=== PATIENT | male | born 1935 | race Hispanic/Latino ===

== ENCOUNTER 2017-12-15 20:20 | Inpatient (IN) | payer MEDICARE, BC, SELFPAY ==
[2017-12-15] VITALS (8 sets, daily range): BP systolic 110–167; BP diastolic 67–88; PULSE 78–118; RESP 26–32; TEMP 36.7; O2SAT 91–100
--- NOTE | 2017-12-15 20:37 | DI.RAD.S_ITS ---
PROCEDURE: XR CHEST 1V INDICATIONS: s/p fall w/ chest pain TECHNIQUE: One view of the chest was acquired. COMPARISON: None. FINDINGS: Surgical changes and devices: None. Lungs and pleura: Bilateral diffuse interstitial infiltrates suspicious for pulmonary congestion. No pleural effusions or pneumothorax. Lungs are clear. Mediastinum: Mediastinal contours appear normal. Heart size is mildly increased. Bones and chest wall: Possible left distal clavicular fracture. Overlying soft tissues appear unremarkable. IMPRESSION: 1 Congestive heart failure. 2. Possible left distal clavicular fracture. Dictated by: Nael Chou M.D. on 12/15/2017 at 20:59 Approved by: Nael Chou M.D. on 12/15/2017 at 21:01
--- NOTE | 2017-12-15 20:56 | DI.CT.S_ITS ---
PROCEDURE: CT CERVICAL SPINE WO CON INDICATIONS: s/p fall w/ head strike and neck pain TECHNIQUE: Noncontrast 3 mm thick sections acquired from the skull base to the T4 level. Sagittal and coronal reformats were then constructed. For radiation dose reduction, the following was used: automated exposure control, adjustment of mA and/or kV according to patient size. COMPARISON: [facility], CR, XR CHEST 1V, 12/15/2017, 20:40. [facility], CT, CT CHEST ABD PEL W CON, 12/15/2017, 20:55. FINDINGS: Image quality: Excellent. Bones: No fractures or dislocations. There are degenerative changes in cervical spine. Visualized superior ribs are intact. Soft tissues: Prevertebral soft tissues are normal in thickness. No paravertebral hematomas. No apical pneumothoraces. IMPRESSION: 1. No fractures. 2. Degenerative changes in cervical spine. Dictated by: Nael Chou M.D. on 12/15/2017 at 22:07 Approved by: Nael Chou M.D. on 12/15/2017 at 22:11
--- NOTE | 2017-12-15 20:56 | DI.CT.S_ITS ---
PROCEDURE: CT CHEST ABD PEL W CON INDICATIONS: s/p fall w/ right chest pain and diffuse upper abdominal pain TECHNIQUE: After the administration of intravenous contrast, 5 mm thick sections acquired from the lung apices to the symphysis. 2.5 mm thick coronal and sagittal reformats were acquired. Additional 7 mm thick coronal maximum intensity projection (MIP) reformats acquired through the lungs. Optional 10-minute delayed imaging may be performed from the kidneys to the bladder. For radiation dose reduction, the following was used: automated exposure control, adjustment of mA and/or kV according to patient size. COMPARISON: [facility], CR, XR CHEST 1V, 12/15/2017, 20:40. FINDINGS: Image quality: Excellent. CHEST: Lungs: There is diffuse interstitial infiltrates bilaterally. Subpleural septal thickening and mild pulmonary fibrosis. No pulmonary contusions or lacerations. No acute airspace opacities. No pneumothorax. Trace left pleural effusion adjacent to a left or fractures suspicious levels trace hemothorax. Central and peripheral airways appear patent and normal in caliber. Mediastinum: No mediastinal hematomas. Heart size is moderately increased. No pericardial effusion. Thoracic aorta and pulmonary arteries demonstrate normal size and enhancement. No mediastinal or hilar adenopathy. Esophagus is normal in caliber. Small hiatal hernia. Chest wall: There is nondisplaced sternal fracture. No mediastinal hematoma. There is left medial clavicular head fracture. Multiple left rib fractures involving the second through eighth ribs. There is nondisplaced left scapular fracture involving the scapular spine. No subcutaneous emphysema. No axillary or supraclavicular adenopathy. Thyroid gland is normal. Enlarged left sternocleidomastoid muscle, suspicious for intramuscular hematoma. ABDOMEN: Solid organs: Liver is normal in size and enhancement, without lacerations. Gallbladder is normal. Biliary system is non-dilated. Pancreas enhances normally, without transection. Spleen is normal in size and enhancement, without lacerations. No adrenal hematomas. Both kidneys enhance normally, without hydronephrosis or lacerations. There are low density cortical nodules in right kidney probably renal cortical cysts. Peritoneum and bowel: Stomach is distended and filled with food debris. No free fluid or air. Unenhanced bowel loops demonstrate normal wall thickness and caliber. There is a small hiatal hernia. Nodes and vessels: No retroperitoneal or mesenteric adenopathy. Aorta and inferior vena cava are normal in size and enhancement. Miscellaneous: No ventral hernias. PELVIS: Genitourinary: Bladder wall thickness is normal. Miscellaneous: No inguinal hernias or adenopathy. Bones: There is acute T11 compression fracture with 30-40% loss of vertebral body height. Mild posterior displacement.. Pelvic ring and hip joints appear intact. No vertebral compression fractures. IMPRESSION: 1. Nondisplaced sternal fracture. No mediastinal hematoma. 2. Fracture of the left medial clavicular head. 3. Multiple left rib fractures and trace left hemothorax. 4. Acute compression fracture of T11 is mild posterior displacement. 5. A nondisplaced left scapular fracture. 6. Moderate cardiomegaly. 7. Diffuse interstitial infiltrates may be secondary to chronic congestive heart failure or chronic interstitial lung disease. There is mild pulmonary fibrosis. 8. Distended stomach and small hiatal hernia. 9. No acute traumatic process in abdomen or pelvis. 10. Enlargement of the left sternocleidomastoid muscle suspicious for intramuscular hematoma. Dictated by: Nael Chou M.D. on 12/15/2017 at 22:11 Approved by: Nael Chou M.D. on 12/15/2017 at 22:31
--- NOTE | 2017-12-15 20:56 | DI.CT.S_ITS ---
PROCEDURE: CT HEAD/BRAIN WO CON INDICATIONS: s/p fall w/ head strike and neck pain TECHNIQUE: Noncontrast 4.5 mm thick angled axial sections acquired from the foramen magnum to the vertex, with coronal and sagittal reformats. For radiation dose reduction, the following was used: automated exposure control, adjustment of mA and/or kV according to patient size. COMPARISON: None. FINDINGS: Image quality: Excellent. CSF spaces: Basal cisterns are patent. No extra-axial fluid collections. The ventricles are symmetric in size and shape. Brain: No intracranial bleeds or masses. There is cerebral volume loss for age, with resultant ventricular and sulcal prominence. There are periventricular and deep white matter chronic small vessel ischemic changes. There is intracranial internal carotid artery atherosclerosis. Skull and face: Calvarium and visualized facial bones appear intact, without suspicious lesions. Sinuses: Visualized sinuses and mastoids are clear. IMPRESSION: 1. No acute intracranial abnormalities. 2. Cerebral volume loss and chronic microvascular ischemic changes. Dictated by: Nael Chou M.D. on 12/15/2017 at 22:06 Approved by: Nael Chou M.D. on 12/15/2017 at 22:07
[2017-12-15 21:05] LABS: Add Manual Diff / Slide Review NO; Basophils Percent Auto 0.2 % (0-2); Eosinophils Percent Auto 1.7 % (2-4); Hematocrit 44.7 % (41-53); Hemoglobin 14.9 g/dL (13.5-17.5); Lymphocytes Percent Auto 31.8 % (25-40); Mean Corpuscular HGB Conc 33.2 % (30-36); Mean Corpuscular Hemoglobin 28.8 PG (26-34); Mean Corpuscular Volume 86.7 fL (80-100); Monocytes Percent Auto 5.6 % (3-14); Neutrophils Absolute Auto 8700 /uL (3000-5900); Neutrophils Percent Auto 60.7 % (50-75); Platelet Count 211 X10^3/uL (150-400); Red Blood Cell Count 5.16 X10^6/uL (4.5-5.9); Red Cell Distribution Width 13.7 % (11.6-14.8); White Blood Cell Count 14.2 X10^3/uL (4.5-11.0)
[2017-12-15 21:09] LABS: BUN Creatinine Ratio 28.9 (6-22); Blood Urea Nitrogen 26 mg/dL (9-20); Calcium 9.3 mg/dL (8.4-10.2); Carbon Dioxide 31 mmol/L (22-32); Chloride 100 mmol/L (98-107); Estimated Glomerular Filt Rate > 60.0 mL/min (>60); Glucose 123 mg/dL (80-110); HEMOLYSIS 24 (0-50); Potassium 3.9 mmol/L (3.4-5.1); Sodium 142 mmol/L (137-145)
[2017-12-15] MEDS: HYDROMORPHONE 0.5 MG INJ IV (21:35)
--- NOTE | 2017-12-15 22:38 | PC.NURSE ---
He arrived with hard collar in place,DR removed his backboard when he arrived here.Per orders I removed his hard c-collar at this time.
--- NOTE | 2017-12-15 22:51 | PC.NURSE ---
1050 Pt. O2 sat at 82L% with good pleth. placed on 2 l NC, pt c/o substernal CP and is diaphoretic. RT ordered to bs for and EKG
--- NOTE | 2017-12-15 23:28 | PC.NURSE ---
pt ambulated himself to stand and use urinal, his heart rate increased to the 115's and he said he felt like he had no energy.
[2017-12-16] VITALS (13 sets, daily range): BP systolic 103–159; BP diastolic 59–91; PULSE 82–122; RESP 16–30; TEMP 36.6–37; O2SAT 86–97; BMI 26.7
--- NOTE | 2017-12-16 | DI.RAD.S_ITS ---
PROCEDURE: XR CHEST 1V INDICATIONS: Hemothorax TECHNIQUE: One view of the chest was acquired. COMPARISON: [facility], CT, CT CHEST ABD PEL W CON, 12/15/2017, 20:55. [facility], CR, XR CHEST 1V, 12/15/2017, 20:40. FINDINGS: Surgical changes and devices: None. Lungs and pleura: No pleural effusions or pneumothorax. Lungs are abnormal with a generalized interstitial prominence pattern, in addition to possible mild superimposed pulmonary edema. Mediastinum: Mediastinal contours appear abnormal with indistinct margination and mediastinal contours to the interstitial prominence and suspected mild pulmonary edema. Heart size is globally enlarged. Bones and chest wall: No suspicious bony lesions. Overlying soft tissues appear unremarkable. IMPRESSION: Global cardiomegaly, probable mild acute CHF superimposed on the generalized interstitial prominence pattern that has been present on prior plain films without the cardiomegaly currently present. Left-sided partially visualized rib fractures, better seen by recent CT scan. Dictated by: Sander Mitchell M.D. on 12/16/2017 at 12:02 Approved by: Sander Mitchell M.D. on 12/16/2017 at 12:05
--- NOTE | 2017-12-16 | DI.RAD.S_ITS ---
PROCEDURE: XR SHOULDER LT MIN 2V INDICATIONS: Trauma TECHNIQUE: 3 views of the shoulder were acquired. COMPARISON: [facility], CT, CT CERVICAL SPINE WO CON, 12/15/2017, 20:55. [facility], CT, CT CHEST ABD PEL W CON, 12/15/2017, 20:55. [facility], CR, XR CHEST 1V, 12/16/2017, 11:26. FINDINGS: Bones: No dislocations. No suspicious bony lesions. Visualized ribs appear intact. There is a distal clavicular and a medial clavicular fracture involving the left clavicle, at each end, minimally displaced. Soft tissues: No suspicious soft tissue calcifications. Mild pulmonary edema pattern, cardiomegaly. IMPRESSION: Medial and lateral left clavicular fractures, minimally displaced. No definite scapular fracture found. Dictated by: Sander Mitchell M.D. on 12/16/2017 at 12:05 Approved by: Sander Mitchell M.D. on 12/16/2017 at 12:08
[2017-12-16] MEDS: HYDROMORPHONE 0.5 MG INJ IV ×2 (00:40→02:19)
[2017-12-16] MEDS: SODIUM CHLORIDE 0.9% 1,000 ML 1000 ML IV (00:41)
--- NOTE | 2017-12-16 00:45 | ED_ITS ---
HPI - Fall General Chief Complaint: Trauma Stated Complaint: Fell Off Deck History of Present Illness HPI Narrative: HPI 82-year-old male presents for evaluation of injuries after a fall of ~6 feet when he slipped and fell backwards off of the deck. Patient reports right sided chest pain, upper abdominal pain, and mid back pain. Unclear if the patient struck his head, no LOC. Denies blood thinners or antiplatelet agents. M/S/F/SocHx notable for: please see HPI; remainder reviewed with patient and in chart. ROS: Negative constitutional, eye, cardiovascular, pulmonary, GI, , MSK, skin , neurologic, psychiatric, endocrine unless noted in the HPI. Exam General: pleasant, uncomfortable appearing, in mild discomfort. HENT: No evidence of facial or head trauma, TTP of orbits, TTP of midface, malocclusion, or septal hematoma. OP clear and moist, dentition intact. Eyes: EOMI, PERRL (3->2mm bilaterally). Neck: Tracheal midline. No visible skin defects, no step-offs, no c-spine TTP, no stridor, or JVD. Cardiac: Regular rate and rhythm. Chest: right-sided tenderness to palpation, mild left-sided tenderness to palpation, breath sounds present bilaterally, mildly increase work of breathing. Pulm: Clear to auscultation bilaterally, normal work of breathing without accessory muscle usage. Abd: upper abdomen with diffuse tenderness to palpation, no rebound, no guarding. Back: mild to moderate mid thoracic tenderness palpation, no step-offs, no pharmacies, remainder of C, T, L spine without tenderness palpation. Pelvis: Stable, no tenderness to palpation or instability. RUE: No visible injuries. Mallet And Die Cutter 5/5, radial pulse 2+, sensation intact at hand. Shoulder, elbow, wrist, and fingers with full functional range of motion. Muscle compartments of the upper arm, forearm, and hand are soft and without marked tenderness to palpation. LUE: No visible injuries. Mallet And Die Cutter 5/5, radial pulse 2+, sensation intact at hand. Shoulder, elbow, wrist, and fingers with full functional range of motion. Muscle compartments of the upper arm, forearm, and hand are soft and without marked tenderness to palpation. RLE: No visible injuries. Dorsiflexion 5/5, distal pulse 2+, sensation intact at foot. Hip, knee, ankle, and toes with full functional range of motion. Muscle compartments of the thigh, calf, and foot are soft and without marked tenderness to palpation. LLE: No visible injuries. Dorsiflexion 5/5, distal pulse 2+, sensation grossly intact. Hip, knee, ankle, and toes with full functional range of motion. Muscle compartments of the thigh, calf, and foot are soft and without marked tenderness to palpation. Neuro: AOx3, CN VII intact Skin: Warm and dry (focal injuries noted above). Psych: Normal affect and judgment. Labs / Imaging (pertinent): CXR: CHF, possible left distal clavicular fracture. CT head: no acute traumatic abnormalities. CT C-spine: no fractures. CT chest/abdomen/pelvis: nondisplaced sternal fracture. No mediastinal hematoma. Fracture of the left medial clavicular head. Multiple left rib fractures and trace left hemothorax, acute compression fracture of T11 there is mild posterior displacement. A nondisplaced left scapular fracture, moderate cardiomegaly, diffuse interstitial infiltrates may be secondary to chronic congestive heart failure or chronic interstitial lung disease, there is mild pulmonary fibrosis. No acute traumatic process in the abdomen or pelvis. Enlargement of the left sternocleidomastoid muscle suspicious for intramuscular hematoma. WBC 14.2, Hb 14.9, Na 142, K 3.9, PT/INR and PTT pending MDM Previous chart, nursing note, and vitals reviewed. A: 82-year-old male presents for evaluation of injuries after a fall of ~6 feet when he slipped and fell backwards off of the deck. Evaluation: patient with multiple chest injuries as noted above, patient given hydration, analgesia, given the small size of hemothorax, a chest tube was deferred pending consultation with surgery. No chest tube recommended per surgery, patient appropriate for inpatient care, admission with the lauded CONTROL SYSTEMS TECHNICIAN recommended. Patient admitted to Dr. Reed. Impression: fall, multiple fractures. (please reference below for remainder of encounter information) Related Data Allergies Allergy/AdvReac Type Severity Reaction Status Date / Time No Known Drug Allergies Allergy Verified 12/15/17 20:33 Exam Initial Vital Signs Initial Vital Signs: Vital Signs Pulse Rate 78 12/15/17 20:20 Blood Pressure 139/74 H 12/15/17 20:20 Course Orders Ordered: ED Orders 12/15/17 20:20 Basic Metabolic Panel Stat Complete Blood Count AUTO DIFF Stat 12/15/17 20:37 XR chest 1V Stat 12/15/17 20:56 CT cervical spine wo con Stat CT chest abd pel w con Stat CT head/brain wo con Stat 12/16/17 00:40 Partial Thromboplastin Time Stat Prothrombin Time INR Stat 12/16/17 00:42 Consult to General Surgery Routine Sodium Chloride (Normal Saline 0.9%) 1,000 mls @ 1,000 mls/hr IV BOLUS ONE Stop: 12/16/17 01:35 Last Admin: 12/16/17 00:41 Dose: 1,000 mls/hr HYDROMORPHONE CONTROL SYSTEMS TECHNICIAN (Dilaudid 6 Mg/30 Ml) 6 mg in 30 mls @ 0 mls/hr IV Q8HR JUANCHO Sodium Chloride (Normal Saline 0.9%) 1,000 mls @ 125 mls/hr IV CONT JUANCHO Naloxone HCl (Narcan) 0.2 mg IV Q2MIN PRN; Protocol PRN Reason: Opiate Reversal Discontinued Medications Hydromorphone HCl (Dilaudid) 0.5 mg IV NOW ONE Stop: 12/15/17 20:58 Last Admin: 12/15/17 21:35 Dose: 0.5 mg Hydromorphone HCl (Dilaudid) 0.5 mg IV NOW ONE Stop: 12/16/17 00:37 Last Admin: 12/16/17 00:40 Dose: 0.5 mg Vital Signs - 8 hr 12/15/17 20:20 12/15/17 20:30 12/15/17 20:33 Temperature 98.1 F Pulse Rate 78 99 H 102 H Respiratory Rate 30 H Blood Pressure 167/75 H Blood Pressure [Right Arm] 139/74 H 167/75 H Pulse Oximetry 100 12/15/17 21:00 12/15/17 21:48 12/15/17 22:06 Temperature Pulse Rate 100 H 109 H 111 H Respiratory Rate 26 H Blood Pressure Blood Pressure [Right Arm] 131/88 H 149/75 H 133/71 H Pulse Oximetry 97 100 12/15/17 22:55 12/15/17 23:21 12/16/17 00:12 Temperature Pulse Rate 112 H 118 H 122 H Respiratory Rate 30 H 32 H 24 Blood Pressure Blood Pressure [Right Arm] 119/77 110/67 103/75 Pulse Oximetry 91 94 97 MDM - Fall Lab Data Result diagrams: 12/15/17 20:20 12/15/17 20:20 Lab Results 12/15/17 12/15/17 Range/Units 20:20 20:20 WBC 14.2 H (4.5-11.0) X10^3/uL RBC 5.16 (4.5-5.9) X10^6/uL Hgb 14.9 (13.5-17.5) g/dL Hct 44.7 (41-53) % MCV 86.7 (80-100) fL MCH 28.8 (26-34) PG MCHC 33.2 (30-36) % RDW 13.7 (11.6-14.8) % Plt Count 211 (150-400) X10^3/uL Neut % (Auto) 60.7 (50-75) % Lymph % (Auto) 31.8 (25-40) % [place] % (Auto) 5.6 (3-14) % Eos % (Auto) 1.7 L (2-4) % Baso % (Auto) 0.2 (0-2) % Neut # (Auto) 8700 H (4272-4117) /uL Sodium 142 (137-145) mmol/L Potassium 3.9 (3.4-5.1) mmol/L Chloride 100 (98-107) mmol/L Carbon Dioxide 31 (22-32) mmol/L BUN 26 H (9-20) mg/dL Creatinine 0.90 (0.66-1.25) mg/dL Estimated GFR > 60.0 (>60) mL/min BUN/Creatinine Ratio 28.9 H (6-22) Glucose 123 H (80-110) mg/dL Calcium 9.3 (8.4-10.2) mg/dL Discharge Plan Departure Patient Disposition: Admitted As Inpatient Clinical Impression: Fall
[2017-12-16 01:04] LABS: INR 1.2 (0.9-1.3); Prothrombin Time 13.1 SECONDS (10.1-12.7)
[2017-12-16 01:07] LABS: PTT Partial Thromboplastin Tim 30 SECONDS (26.4-36.2)
--- NOTE | 2017-12-16 01:16 | PC.NURSE ---
HE HAS A CONTUSION AND BRUISING ON HIS L UPPER CHEST AREA.
[2017-12-16] MEDS: SODIUM CHLORIDE 0.9% 1,000 ML 125 ML IV ×3 (03:51→22:05)
--- NOTE | 2017-12-16 04:44 | PC.NURSE ---
Addendum entered by Melinda De Leon R.N. 12/16/17 07:39: 2 attempts to get pt to try to void in urinal, Mobility limited, did not attempt OOB movement for now. GIS MAPPING TECHNICIAN bladder scanned pt at 0700 for >999mls. Dr. Reed called, made aware, and order to place urinary catheter rec'd. Day RN aware, Ibrahima-pt's son at bedside update & aware. Original Note: Director Of Graduate Medical Education- Report rec'd from MARYSOL Liu in ED at 0159 on current patient status. Request for Alexa to give a one time pain med prior to transfer for pt comfort. Pt arrived on unit via stretcher at 0230. Slider board and 4 staff members to transfer pt from stretcher to bed. Changed into yellow fall risk gown. High fall risk precautions in place & bed alarm on. pt's so Klaus (Ibrahima) at bedside and states is POA. Oriented to call light. Pt reports 3/10 aching to left chest,back,shoulder upon rest and increases with movement. At 0345 DENTURE FINISHER Dilaudid started with instruction to pt and son. Pt responds stating, so I put it in my mouth, while holding the blue cord/button. Cover Seamer had previous explained the medication is delivered into his IV and into the blood stream. Instructed pt's son that only the patient is to push the DENTURE FINISHER button for pain management, he can encourage is father to do so if awake and having pain. IVF infusing to right AC PIV per order. CMS+. NPO for now until order clarification. Pt's son states that pt has short term memory loss and was started on 2 new medications 2 months ago from PCP. Pt's son Ibrahima is staying in room with pt overnight.
[2017-12-16] MEDS: HYDROMORPHONE PCA 6 MG/30 ML PCA.VIAL IV ×2 (05:53→22:05)
--- NOTE | 2017-12-16 12:31 | PC.NURSE ---
Wilburn catheter placed with coude catheter at approx. 0830. Pt tollerated well. Clear yellow urine draining.
[2017-12-16] MEDS: GABAPENTIN 300 MG CAPSULE PO ×2 (13:12→22:05)
--- NOTE | 2017-12-16 16:01 | CM.IDA ---
DCP Assessment: Pt is an 82 male, resident of [place], [place]. Pt admitted after a fall off his dtr's deck at their vacation home on [address] [address]. Pt has multiple fractures but will not need surgery at this time. Pt's PCP is not listed; Insurance is Medicare/BCBS. Met w/pt's dtrs, Judit Knapp ([place]) P# [phone] and Yuliya () P# [phone] . Son/DPBRITTA Alexandra ([place]) P# [phone] had recently left to go get some sleep at the [facility]. Pt sleeping soundly throughout our conversation. Pt speaks very good Czech per family report. Pt lives alone in his home in [place], oldest son Harris lives down the street from him, as does his siblings Mitchell and Gissel Bryson. Pt's 5 years ago. He has 6 children, 4 of them live in the [facility], one in , one in [place]. Pt is physically independent; He lives on one acre, and dtr says he does the same loop everyday. Pt gets up and does daily chores in his yard. Dtr explains although pt is physically very active, he has worsening memory loss. Pt often repeats himself and has left the kettle on per family report. exterminator termite care planning has not been discussed very much, family expects pt to be resistant to moving from his home. Pt remains pleasant and cooperative and maintains his independence by sticking to a daily routine. Pt's family explain they would like pt to DC to a SNF for continued rehab. They would like to research facilities in the [facility] so that more family can visit pt upon his DC. This PUZZLE ASSEMBLER reviewed pt's Medicare coverage for SNF and suggested Medicare.gov as a starting place to investigate SNF options, family appreciative. Following closely for coordination of safe DCP. BLAYNE Goldstein Discharge Planning/Care Management CM Discharge Assessment Start: 12/16/17 15:58 Jeison: Status: Active Protocol: Document 12/16/17 15:58 HAYES (Rec: 12/16/17 16:00 HAYES [id number]) Discharge Planning Assessment Assigned Pharmacy Teacher HAYES History Provided By Family Member Has Patient been admitted in last 30 No days? Is this patient on Medicare? Yes Prior Living Arrangements House Household Members none Type of transporation used prior to Drives own vehicle admit Independent with ADL's Yes Is patient alert and oriented? No: Worsening memory loss per family report Needs Assistance With Home Chores / Shopping Caregiver for Another No Comment Only on BP meds per family Patient Discharge Plan Description [facility] Facility Comment Awaiting SNF choice Discharge Plan [facility] Facility Transportation Arrangement Likely BLS, long distance w/ rib fractures (?) Review Status In Process Next Review Type Discharge Review
--- NOTE | 2017-12-16 16:48 | PT.IPTN ---
Physical Therapy Treatment Note M3 PT-IP Subjective Start: 12/16/17 16:41 Freq: NEEDED Status: Active Protocol: Document 12/16/17 16:41 AB (Rec: 12/16/17 16:48 AB [id number]) Subjective Physical Therapy Visit Type Notes Pt on hold at this time until further clarification order received from doctor regarding parameters for TLSO brace and restrictions and weight bearing status for LUE. Imaging IMPRESSION: 1. Nondisplaced sternal fracture. No mediastinal hematoma. 2. Fracture of the left medial clavicular head. 3. Multiple left rib fractures and trace left hemothorax. 4. Acute compression fracture of T11 is mild posterior displacement. 5. A nondisplaced left scapular fracture. Asked Dr duarte regarding LUE restricions and weight bearing but stated that at the time of consultation, imaging findings for LUE was unavailable and cannot give PT any information regarding concerns. PT eval on hold until further clarification and instructions received. Informed nurse regarding concerns and will try to clarify with pt's doctor.
--- NOTE | 2017-12-16 17:07 | PM.HP.1 ---
History of Present Illness Date Patient Seen: 12/16/17 Time Patient Seen: 10:07 Chief complaint: Fell Off Deck Narrative: Very pleasant and generally healthy 82 year old man who was enjoying fireworks at his daughter's home when he somehow fell backwards off of the deck. The fall was witnessed by multiple family members who all deny any loss of consciousness. Mr. Mann remembers the events but does not remember slipping or stumbling over anything. He definitely remembers the fall and says he never was unconscious. He is complaining of significant left shoulder and chest pain. He also has some pain in his back. He denies any numbness or tingling of any of his extremities. He says the whole left side of his body hurts so much that it is difficult to tell exactly what hurts. Patient History Medical History Arthritis (Acute) Hypertension (Acute) Memory deficit (Acute) Prostate CA (Acute) Family & Social History Family History: Reviewed 12/16/17 by Judith Reed MD Social History: household members none Prior Living Arrangements House Safety & Behavioral: Feels Safe in Current Yes Environment Been Physically Hurt or No Threatened By a Person Suicidal Ideation Description None Suicide Plan Description No Plan Tobacco & Substance use: Smoking Status Former smoker alcohol intake frequency holiday/special occasion Substance Use Type does not use Meds Home Medications Medication Instructions Recorded Confirmed Type amlodipine 2.5 mg PO DAILY 12/16/17 12/16/17 History cholecalciferol (vitamin D3) 2,000 unit PO DAILY 12/16/17 12/16/17 History [Vitamin D3] donepezil 5 mg PO DAILY 12/16/17 12/16/17 History doxycycline hyclate [Targadox] 50 mg PO PRN PRN 12/16/17 12/16/17 History memantine 10 mg PO QAM 12/16/17 12/16/17 History Allergies Allergy/AdvReac Type Severity Reaction Status Date / Time No Known Drug Allergies Allergy Verified 12/15/17 20:33 Review of Systems Review of Systems He specifically denies hematuria or dysuria. He denies shortness of breath. He admits it is painful to take a breath. He has not coughed up any blood. He denies headache. All systems reviewed & are unremarkable except as noted in HPI and below Exam Vital Signs (past 8 hours): - 12/16/17 09:14 12/16/17 11:45 12/16/17 16:30 Temperature 97.9 F 98.4 F 98.1 F Pulse Rate 92 H 90 88 Respiratory Rate 17 17 20 Blood Pressure 107/59 L 110/62 117/71 Pulse Oximetry 92 94 94 Oxygen Delivery Method Nasal Cannula Oxygen Flow Rate 2 Narrative Exam Narrative: Fit appearing elderly man in some obvious physical discomfort. He still appears much younger than his stated age. HEENT: Normocephalic and atraumatic, pupils equal round and reactive to light accommodation with anicteric sclera. No midface instability or crepitance. No evidence of midface trauma. Patient reports teeth fit together normally and his bite feels normal. Lungs: Decreased breath sounds on the left side compared to the right. Obvious splinting of the left side of the chest as the patient sits with his left side slightly raised up in the bed. No crackles or rales Heart: Regular rate and rhythm without murmur Chest: Tender to palpation along the entire left side. Bruising is developing along the ribs and sternum. Abdomen: Soft, nontender, active bowel sounds. No ventral or inguinal hernias appreciated. A lower midline incision is appreciated and is without defect. Extremities: Superficial abrasions and scratches are noted. No edema or open wounds. Objective Labs Result Diagrams: 12/15/17 20:20 12/15/17 20:20 Labs: Laboratory Results - last 24 hr 12/15/17 12/15/17 12/15/17 20:20 20:20 22:10 WBC 14.2 H RBC 5.16 Hgb 14.9 Hct 44.7 MCV 86.7 MCH 28.8 MCHC 33.2 RDW 13.7 Plt Count 211 Neut % (Auto) 60.7 Lymph % (Auto) 31.8 [place] % (Auto) 5.6 Eos % (Auto) 1.7 L Baso % (Auto) 0.2 Neut # (Auto) 8700 H PT 13.1 H INR 1.2 APTT 30 Sodium 142 Potassium 3.9 Chloride 100 Carbon Dioxide 31 BUN 26 H Creatinine 0.90 Estimated GFR > 60.0 BUN/Creatinine Ratio 28.9 H Glucose 123 H Calcium 9.[address] [address] [address] Scan Report Signed Patient: Harris Mann MR#: [id number] : 1935 Acct:[id number] Age/Sex: 82 / M Date of Service: 12/15/17 Loc: ED Accession Number: [id number] Procedure: CT chest abd pel w con Ordering Provider: Abundio Mike M.D. PROCEDURE: CT CHEST ABD PEL W CON INDICATIONS: s/p fall w/ right chest pain and diffuse upper abdominal pain TECHNIQUE: After the administration of intravenous contrast, 5 mm thick sections acquired from the lung apices to the symphysis. 2.5 mm thick coronal and sagittal reformats were acquired. Additional 7 mm thick coronal maximum intensity projection (MIP) reformats acquired through the lungs. Optional 10-minute delayed imaging may be performed from the kidneys to the bladder. For radiation dose reduction, the following was used: automated exposure control, adjustment of mA and/or kV according to patient size. COMPARISON: [facility], CR, XR CHEST 1V, 12/15/2017, 20:40. FINDINGS: Image quality: Excellent. CHEST: Lungs: There is diffuse interstitial infiltrates bilaterally. Subpleural septal thickening and mild pulmonary fibrosis. No pulmonary contusions or lacerations. No acute airspace opacities. No pneumothorax. Trace left pleural effusion adjacent to a left or fractures suspicious levels trace hemothorax. Central and peripheral airways appear patent and normal in caliber. Mediastinum: No mediastinal hematomas. Heart size is moderately increased. No pericardial effusion. Thoracic aorta and pulmonary arteries demonstrate normal size and enhancement. No mediastinal or hilar adenopathy. Esophagus is normal in caliber. Small hiatal hernia. Chest wall: There is nondisplaced sternal fracture. No mediastinal hematoma. There is left medial clavicular head fracture. Multiple left rib fractures involving the second through eighth ribs. There is nondisplaced left scapular fracture involving the scapular spine. No subcutaneous emphysema. No axillary or supraclavicular adenopathy. Thyroid gland is normal. Enlarged left sternocleidomastoid muscle, suspicious for intramuscular hematoma. ABDOMEN: Solid organs: Liver is normal in size and enhancement, without lacerations. Gallbladder is normal. Biliary system is non-dilated. Pancreas enhances normally, without transection. Spleen is normal in size and enhancement, without lacerations. No adrenal hematomas. Both kidneys enhance normally, without hydronephrosis or lacerations. There are low density cortical nodules in right kidney probably renal cortical cysts. Peritoneum and bowel: Stomach is distended and filled with food debris. No free fluid or air. Unenhanced bowel loops demonstrate normal wall thickness and caliber. There is a small hiatal hernia. Nodes and vessels: No retroperitoneal or mesenteric adenopathy. Aorta and inferior vena cava are normal in size and enhancement. Miscellaneous: No ventral hernias. PELVIS: Genitourinary: Bladder wall thickness is normal. Miscellaneous: No inguinal hernias or adenopathy. Bones: There is acute T11 compression fracture with 30-40% loss of vertebral body height. Mild posterior displacement.. Pelvic ring and hip joints appear intact. No vertebral compression fractures. IMPRESSION: 1. Nondisplaced sternal fracture. No mediastinal hematoma. 2. Fracture of the left medial clavicular head. 3. Multiple left rib fractures and trace left hemothorax. 4. Acute compression fracture of T11 is mild posterior displacement. 5. A nondisplaced left scapular fracture. 6. Moderate cardiomegaly. 7. Diffuse interstitial infiltrates may be secondary to chronic congestive heart failure or chronic interstitial lung disease. There is mild pulmonary fibrosis. 8. Distended stomach and small hiatal hernia. 9. No acute traumatic process in abdomen or pelvis. 10. Enlargement of the left sternocleidomastoid muscle suspicious for intramuscular hematoma. Dictated by: Nael Chou M.D. on 12/15/2017 at 22:11 Approved by: Nael Chou M.D. on 12/15/2017 at 22:31 [place] [address] CT Scan Report Signed Patient: Harris Mann MR#: [id number] : 1935 Acct:[id number] Age/Sex: 82 / M Date of Service: 12/15/17 Loc: ED Accession Number: [id number] Procedure: CT cervical spine wo con Ordering Provider: Abundio Mike M.D. PROCEDURE: CT CERVICAL SPINE WO CON INDICATIONS: s/p fall w/ head strike and neck pain TECHNIQUE: Noncontrast 3 mm thick sections acquired from the skull base to the T4 level. Sagittal and coronal reformats were then constructed. For radiation dose reduction, the following was used: automated exposure control, adjustment of mA and/or kV according to patient size. COMPARISON: [facility], CR, XR CHEST 1V, 12/15/2017, 20:40. [facility], CT, CT CHEST ABD PEL W CON, 12/15/2017, 20:55. FINDINGS: Image quality: Excellent. Bones: No fractures or dislocations. There are degenerative changes in cervical spine. Visualized superior ribs are intact. Soft tissues: Prevertebral soft tissues are normal in thickness. No paravertebral hematomas. No apical pneumothoraces. IMPRESSION: 1. No fractures. 2. Degenerative changes in cervical spine. Dictated by: Nael Chou M.D. on 12/15/2017 at 22:07 Approved by: Nael Chou M.D. on 12/15/2017 at 22:11 Assessment & Plan Plan: Assessment/Plan Narrative: Multiple injuries status post fall 1. Will add gabapentin for adjunctive help with pain control 2. Will request orthopedic consult regarding the T11 fracture as well as the scapula fracture and clavicle fractures 3. Aggressive pulmonary toilet-will Respiratory therapy consult to provide incentive spirometer and any other measures that might be helpful 4. I spoken with Dr. Marianne Law and she has requested plain films of the shoulder. 5. Repeat chest x-ray this morning. Quality VTE Deep Vein Thrombosis/Pulmonary Embolism Present on Admission: No
--- NOTE | 2017-12-16 17:14 | P.HP_ITS ---
History of Present Illness Date Patient Seen: 12/16/17 Time Patient Seen: 10:07 Chief complaint: Fell Off Deck Narrative: Very pleasant and generally healthy 82 year old man who was enjoying fireworks at his daughter's home when he somehow fell backwards off of the deck. The fall was witnessed by multiple family members who all deny any loss of consciousness. Mr. Mann remembers the events but does not remember slipping or stumbling over anything. He definitely remembers the fall and says he never was unconscious. He is complaining of significant left shoulder and chest pain. He also has some pain in his back. He denies any numbness or tingling of any of his extremities. He says the whole left side of his body hurts so much that it is difficult to tell exactly what hurts. Patient History Medical History Arthritis (Acute) Hypertension (Acute) Memory deficit (Acute) Prostate CA (Acute) Family & Social History Family History: Reviewed 12/16/17 by Judith Reed MD Social History: household members none Prior Living Arrangements House Safety & Behavioral: Feels Safe in Current Yes Environment Been Physically Hurt or No Threatened By a Person Suicidal Ideation Description None Suicide Plan Description No Plan Tobacco & Substance use: Smoking Status Former smoker alcohol intake frequency holiday/special occasion Substance Use Type does not use Meds Home Medications Medication Instructions Recorded Confirmed Type amlodipine 2.5 mg PO DAILY 12/16/17 12/16/17 History cholecalciferol (vitamin D3) 2,000 unit PO DAILY 12/16/17 12/16/17 History [Vitamin D3] donepezil 5 mg PO DAILY 12/16/17 12/16/17 History doxycycline hyclate [Targadox] 50 mg PO PRN PRN 12/16/17 12/16/17 History memantine 10 mg PO QAM 12/16/17 12/16/17 History Allergies Allergy/AdvReac Type Severity Reaction Status Date / Time No Known Drug Allergies Allergy Verified 12/15/17 20:33 Review of Systems Review of Systems He specifically denies hematuria or dysuria. He denies shortness of breath. He admits it is painful to take a breath. He has not coughed up any blood. He denies headache. All systems reviewed & are unremarkable except as noted in HPI and below Exam Vital Signs (past 8 hours): - 12/16/17 09:14 12/16/17 11:45 12/16/17 16:30 Temperature 97.9 F 98.4 F 98.1 F Pulse Rate 92 H 90 88 Respiratory Rate 17 17 20 Blood Pressure 107/59 L 110/62 117/71 Pulse Oximetry 92 94 94 Oxygen Delivery Method Nasal Cannula Oxygen Flow Rate 2 Narrative Exam Narrative: Fit appearing elderly man in some obvious physical discomfort. He still appears much younger than his stated age. HEENT: Normocephalic and atraumatic, pupils equal round and reactive to light accommodation with anicteric sclera. No midface instability or crepitance. No evidence of midface trauma. Patient reports teeth fit together normally and his bite feels normal. Lungs: Decreased breath sounds on the left side compared to the right. Obvious splinting of the left side of the chest as the patient sits with his left side slightly raised up in the bed. No crackles or rales Heart: Regular rate and rhythm without murmur Chest: Tender to palpation along the entire left side. Bruising is developing along the ribs and sternum. Abdomen: Soft, nontender, active bowel sounds. No ventral or inguinal hernias appreciated. A lower midline incision is appreciated and is without defect. Extremities: Superficial abrasions and scratches are noted. No edema or open wounds. Objective Labs Result Diagrams: 12/15/17 20:20 12/15/17 20:20 Labs: Laboratory Results - last 24 hr 12/15/17 12/15/17 12/15/17 20:20 20:20 22:10 WBC 14.2 H RBC 5.16 Hgb 14.9 Hct 44.7 MCV 86.7 MCH 28.8 MCHC 33.2 RDW 13.7 Plt Count 211 Neut % (Auto) 60.7 Lymph % (Auto) 31.8 [place] % (Auto) 5.6 Eos % (Auto) 1.7 L Baso % (Auto) 0.2 Neut # (Auto) 8700 H PT 13.1 H INR 1.2 APTT 30 Sodium 142 Potassium 3.9 Chloride 100 Carbon Dioxide 31 BUN 26 H Creatinine 0.90 Estimated GFR > 60.0 BUN/Creatinine Ratio 28.9 H Glucose 123 H Calcium 9.[address] [address] [address] Scan Report Signed Patient: Harris Mann MR#: [id number] : 1935 Acct:[id number] Age/Sex: 82 / M Date of Service: 12/15/17 Loc: ED Accession Number: [id number] Procedure: CT chest abd pel w con Ordering Provider: Abundio Mike M.D. PROCEDURE: CT CHEST ABD PEL W CON INDICATIONS: s/p fall w/ right chest pain and diffuse upper abdominal pain TECHNIQUE: After the administration of intravenous contrast, 5 mm thick sections acquired from the lung apices to the symphysis. 2.5 mm thick coronal and sagittal reformats were acquired. Additional 7 mm thick coronal maximum intensity projection (MIP) reformats acquired through the lungs. Optional 10-minute delayed imaging may be performed from the kidneys to the bladder. For radiation dose reduction, the following was used: automated exposure control, adjustment of mA and/or kV according to patient size. COMPARISON: [facility], CR, XR CHEST 1V, 12/15/2017, 20:40. FINDINGS: Image quality: Excellent. CHEST: Lungs: There is diffuse interstitial infiltrates bilaterally. Subpleural septal thickening and mild pulmonary fibrosis. No pulmonary contusions or lacerations. No acute airspace opacities. No pneumothorax. Trace left pleural effusion adjacent to a left or fractures suspicious levels trace hemothorax. Central and peripheral airways appear patent and normal in caliber. Mediastinum: No mediastinal hematomas. Heart size is moderately increased. No pericardial effusion. Thoracic aorta and pulmonary arteries demonstrate normal size and enhancement. No mediastinal or hilar adenopathy. Esophagus is normal in caliber. Small hiatal hernia. Chest wall: There is nondisplaced sternal fracture. No mediastinal hematoma. There is left medial clavicular head fracture. Multiple left rib fractures involving the second through eighth ribs. There is nondisplaced left scapular fracture involving the scapular spine. No subcutaneous emphysema. No axillary or supraclavicular adenopathy. Thyroid gland is normal. Enlarged left sternocleidomastoid muscle, suspicious for intramuscular hematoma. ABDOMEN: Solid organs: Liver is normal in size and enhancement, without lacerations. Gallbladder is normal. Biliary system is non-dilated. Pancreas enhances normally, without transection. Spleen is normal in size and enhancement, without lacerations. No adrenal hematomas. Both kidneys enhance normally, without hydronephrosis or lacerations. There are low density cortical nodules in right kidney probably renal cortical cysts. Peritoneum and bowel: Stomach is distended and filled with food debris. No free fluid or air. Unenhanced bowel loops demonstrate normal wall thickness and caliber. There is a small hiatal hernia. Nodes and vessels: No retroperitoneal or mesenteric adenopathy. Aorta and inferior vena cava are normal in size and enhancement. Miscellaneous: No ventral hernias. PELVIS: Genitourinary: Bladder wall thickness is normal. Miscellaneous: No inguinal hernias or adenopathy. Bones: There is acute T11 compression fracture with 30-40% loss of vertebral body height. Mild posterior displacement.. Pelvic ring and hip joints appear intact. No vertebral compression fractures. IMPRESSION: 1. Nondisplaced sternal fracture. No mediastinal hematoma. 2. Fracture of the left medial clavicular head. 3. Multiple left rib fractures and trace left hemothorax. 4. Acute compression fracture of T11 is mild posterior displacement. 5. A nondisplaced left scapular fracture. 6. Moderate cardiomegaly. 7. Diffuse interstitial infiltrates may be secondary to chronic congestive heart failure or chronic interstitial lung disease. There is mild pulmonary fibrosis. 8. Distended stomach and small hiatal hernia. 9. No acute traumatic process in abdomen or pelvis. 10. Enlargement of the left sternocleidomastoid muscle suspicious for intramuscular hematoma. Dictated by: Nael Chou M.D. on 12/15/2017 at 22:11 Approved by: Nael Chou M.D. on 12/15/2017 at 22:31 [place] [address] CT Scan Report Signed Patient: Harris Mann MR#: [id number] : 1935 Acct:[id number] Age/Sex: 82 / M Date of Service: 12/15/17 Loc: ED Accession Number: [id number] Procedure: CT cervical spine wo con Ordering Provider: Abundio Mike M.D. PROCEDURE: CT CERVICAL SPINE WO CON INDICATIONS: s/p fall w/ head strike and neck pain TECHNIQUE: Noncontrast 3 mm thick sections acquired from the skull base to the T4 level. Sagittal and coronal reformats were then constructed. For radiation dose reduction, the following was used: automated exposure control, adjustment of mA and/or kV according to patient size. COMPARISON: [facility], CR, XR CHEST 1V, 12/15/2017, 20:40. [facility], CT, CT CHEST ABD PEL W CON, 12/15/2017, 20:55. FINDINGS: Image quality: Excellent. Bones: No fractures or dislocations. There are degenerative changes in cervical spine. Visualized superior ribs are intact. Soft tissues: Prevertebral soft tissues are normal in thickness. No paravertebral hematomas. No apical pneumothoraces. IMPRESSION: 1. No fractures. 2. Degenerative changes in cervical spine. Dictated by: Nael Chou M.D. on 12/15/2017 at 22:07 Approved by: Nael Chou M.D. on 12/15/2017 at 22:11 Assessment & Plan Plan: Assessment/Plan Narrative: Multiple injuries status post fall 1. Will add gabapentin for adjunctive help with pain control 2. Will request orthopedic consult regarding the T11 fracture as well as the scapula fracture and clavicle fractures 3. Aggressive pulmonary toilet-will Respiratory therapy consult to provide incentive spirometer and any other measures that might be helpful 4. I spoken with Dr. Marianne Law and she has requested plain films of the shoulder. 5. Repeat chest x-ray this morning. Quality VTE Deep Vein Thrombosis/Pulmonary Embolism Present on Admission: No
--- NOTE | 2017-12-16 19:15 | P.HP_ITS ---
History of Present Illness Date Patient Seen: 12/16/17 Time Patient Seen: 18:05 Chief complaint: Fell Off Deck Narrative: Harris notes that he was attempting to watch the fireworks when he accidentally fell off the deck. It was a witnessed fall. He developed fairly severe plain into his left shoulder last left ribs and into his low back. He is right-hand dominant. Patient History Medical History Arthritis (Acute) Hypertension (Acute) Memory deficit (Acute) Prostate CA (Acute) Family & Social History Family History: Reviewed 12/16/17 by Marianne Law MD Social History: household members none Prior Living Arrangements House Safety & Behavioral: Feels Safe in Current Yes Environment Been Physically Hurt or No Threatened By a Person Suicidal Ideation Description None Suicide Plan Description No Plan Tobacco & Substance use: Smoking Status Former smoker alcohol intake frequency holiday/special occasion Substance Use Type does not use Meds Home Medications Medication Instructions Recorded Confirmed Type amlodipine 2.5 mg PO DAILY 12/16/17 12/16/17 History cholecalciferol (vitamin D3) 2,000 unit PO DAILY 12/16/17 12/16/17 History [Vitamin D3] donepezil 5 mg PO DAILY 12/16/17 12/16/17 History doxycycline hyclate [Targadox] 50 mg PO PRN PRN 12/16/17 12/16/17 History memantine 10 mg PO QAM 12/16/17 12/16/17 History Allergies Allergy/AdvReac Type Severity Reaction Status Date / Time No Known Drug Allergies Allergy Verified 12/15/17 20:33 Review of Systems Review of Systems He did not note any chest pain dizziness or lightheadedness prior to the fall. He notes that he does have chest pain at this point and feels mildly short of breath. He also notes ongoing moderate neck pain. He denies a history of recent fever chills. He does have some problems with his memory and has had a recent adjusted adjustment of his memory medications. All systems reviewed & are unremarkable except as noted in HPI and below Exam Vital Signs (past 8 hours): - 12/16/17 11:45 12/16/17 16:30 Temperature 98.4 F 98.1 F Pulse Rate 90 88 Respiratory Rate 17 20 Blood Pressure 110/62 117/71 Pulse Oximetry 94 94 Oxygen Delivery Method Nasal Cannula Oxygen Flow Rate 2 Narrative Exam Narrative: He is pleasant he is alert he is conversant he does note moderate pain with attempted range of motion into his neck. He is complaining of pain onto his left clavicle left shoulder and mid back. He denies pain in bilateral lower extremities. His right upper extremity has good range of motion and it is nontender. His normal anesthesia director strength in the left hand good range of motion in the left elbow and no substantial pain with gentle internal and external rotation of his left shoulder. Neck shows decreased range of motion but the majority of the pain is along his sternoclavicular area sternum clavicle and posterior scapula with minimal midline tenderness on his neck. He does have restricted range of motion into his neck. HEENT is otherwise atraumatic other than swelling over his left sternoclavicular region with some deformity chest lungs are clear breath sounds are slightly decreased core is a regular rate and rhythm he does have focal tenderness to palpation along his sternum although there is no palpable step-off. His abdomen is soft and benign. He has focal tenderness to palpation and along his thoracic spine. His pelvis is noted to be stable has good range of motion into his hips and bilateral lower extremities and pretty normal strength in bilateral lower extremities although he does have some pain with attempted straight leg raise bilaterally which is predominantly in the mid back and low back. Deep tendon reflexes are symmetrical. There are no beats of clonus in his sensations intact distally. Objective Labs Result Diagrams: 12/15/17 20:20 12/15/17 20:20 Labs: Laboratory Results - last 24 hr 12/15/17 12/15/17 12/15/17 20:20 20:20 22:10 WBC 14.2 H RBC 5.16 Hgb 14.9 Hct 44.7 MCV 86.7 MCH 28.8 MCHC 33.2 RDW 13.7 Plt Count 211 Neut % (Auto) 60.7 Lymph % (Auto) 31.8 [place] % (Auto) 5.6 Eos % (Auto) 1.7 L Baso % (Auto) 0.2 Neut # (Auto) 8700 H PT 13.1 H INR 1.2 APTT 30 Sodium 142 Potassium 3.9 Chloride 100 Carbon Dioxide 31 BUN 26 H Creatinine 0.90 Estimated GFR > 60.0 BUN/Creatinine Ratio 28.9 H Glucose 123 H Calcium 9.3 Assessment & Plan Plan: Assessment/Plan Narrative: His x-rays show a left sternal clavicular fracture with a fracture along the left clavicle with a break into the sternal clavicular region and an abnormality along the lateral aspect of his clavicle. AC joints noted to be intact, his left proximal humerus is intact and normally aligned CT scan does show evidence of a posterior scapular fracture. He also has a T11 fracture without substantial retropulsion of bone of little bit of an atypical pattern with a crack which extends back into the pedicle on the left. L1 on the sagittal scan suggests that there may be a crack into the L1 vertebral body although it is not a dedicated CT scan of his thoracolumbar junction. Impression is T11 fracture, sternal fracture, left sternal clavicular fracture, left clavicle fracture, left scapular fracture, possible L1 fracture. Recommendations and plan I think he needs to be fitted with a TLSO brace I would use the style which is closer to a [place] X jacket or a jacket which is a clamshell style which is fitted specifically to the patient it should potentially help stabilize his clavicle and sternum and his L1 and T11 fractures. I contacted [facility] and asked them to come and fit him today. Once his braces on and available I would anticipate that we should be able to mobilize him out of bed. I spoke with the family and told them that he likely will feel would heal with nonsurgical management if he has progressive collapse of his T11 vertebral fracture he may be a candidate for a kyphoplasty. Once his braces on and fitted it is okay to mobilize him out of bed to the chair he can be walking weight-bearing as tolerated on bilateral lower extremities. Physical therapy will assist with mobilizing once his braces on and available. Quality VTE Deep Vein Thrombosis/Pulmonary Embolism Present on Admission: No
[2017-12-17] VITALS (9 sets, daily range): BP systolic 135–159; BP diastolic 74–91; PULSE 72–97; RESP 16–20; TEMP 36.1–37.3; O2SAT 86–97; BMI 26.7
[2017-12-17] MEDS: HYDROMORPHONE PCA 6 MG/30 ML PCA.VIAL IV ×3 (05:35→21:56)
[2017-12-17] MEDS: SODIUM CHLORIDE 0.9% 1,000 ML 125 ML IV ×2 (06:25→16:30)
--- NOTE | 2017-12-17 08:26 | PM.PN.1 ---
Subjective Date Patient Seen: 12/17/17 Time Patient Seen: 08:26 Interval history: HOSPITAL DAY 2 FOLLOWING INJURY SUSTAINED ON 12/16/2017 WHEN HE FELL OFF OF A DECK. HE HAS SUSTAINED LEFT PROXIMAL AND DISTAL CLAVICLE FRACTURE, SUPERIOR STERNAL FRACTURE, LEFT SCAPULAR SPINE FRACTURE, LEFT RIB FRACTURES 2 THROUGH 8, T11 FRACTURE AND POSSIBLY L1 ANTERIOR FRACTURE PATIENT WAS SEEN BY DR. GRIMES YESTERDAY FOR ORTHOPEDIC CONSULT. SHE ORDERED A CLAMSHELL TLSO BRACE TO HELP STABILIZE HIS SPINE WELL LEFT SHOULDER AND CHEST. HE IS RECEIVING DILAUDID ASSOCIATE CURATOR. ALSO ON GABAPENTIN. PATIENT LIVES IN [facility] AND WAS VISITING AT FAMILY HOME ON [facility]. HIS SON HAS BEEN STAYING WITH HIM IN THE ROOM. FAMILY IS CONSIDERING HAVING HIM GO TO A NURSING FACILITY IN THE [facility] WHERE MOST OF THE [place]. Exam Vital Signs (past 8 hours): - 12/17/17 04:31 Temperature 98.0 F Pulse Rate 72 Respiratory Rate 20 Blood Pressure 159/91 H Pulse Oximetry 97 Oxygen Delivery Method Room Air Oxygen Flow Rate 2 Narrative Exam Narrative: ALERT, ORIENTED NO ACUTE DISTRESS RESTING IN BED. ARMS. REFINERY OPERATOR HELPER CRUDE UNIT STRONG AND EQUAL. PULSES AND SENSATION AND SYMMETRICAL. MILD TO MODERATE SWELLING TO THE LEFT SHOULDER AREA WITH AREAS OF ECCHYMOSIS. MODERATE TENDERNESS ON PALPATION OF DISTAL AND PROXIMAL CLAVICLE AND SUPERIOR STERNAL AREA. LEGS. NO CALF PAIN OR SWELLING. PULSES SYMMETRICAL. GOOD SENSATION TO TOUCH TO THE LOWER LEGS. GOOD STRENGTH ON FOOT DORSIFLEXION PLANTAR FLEXION. Objective Labs Result Diagrams: 12/15/17 20:20 12/15/17 20:20 Assessment & Plan (1) Sternal fracture: Current visit: Yes Status: Acute (2) Closed left clavicular fracture: Current visit: Yes Status: Acute (3) Closed left scapular fracture: Current visit: Yes Status: Acute (4) Left rib fracture: Current visit: Yes Status: Acute (5) Closed T11 fracture: Current visit: Yes Status: Acute (6) Closed L1 vertebral fracture: Current visit: Yes Status: Acute Plan: Assessment/Plan Narrative: PLAN: PATIENT IS SCHEDULED TO HAVE CLAMSHELL BRACE FITTED BY [facility] TODAY. THIS SHOULD ALLOW HIM TO BE MORE ACTIVE. RECOMMEND THAT HE USE AN INSPIROMETER MUCH POSSIBLE TO AVOID POSSIBLE PNEUMONIA. PATIENT IS DESIRING TO BE PLACED IN A SNF IN [facility] TO BE CLOSER TO FAMILY. ANTICIPATE DISCHARGE ONCE HE IS STABLE AND HAS BRACE IN PLACE. Quality VTE Deep Vein Thrombosis/Pulmonary Embolism Present on Admission: No
--- NOTE | 2017-12-17 08:31 | P.PN_ITS ---
Subjective Date Patient Seen: 12/17/17 Time Patient Seen: 08:26 Interval history: HOSPITAL DAY 2 FOLLOWING INJURY SUSTAINED ON 12/16/2017 WHEN HE FELL OFF OF A DECK. HE HAS SUSTAINED LEFT PROXIMAL AND DISTAL CLAVICLE FRACTURE, SUPERIOR STERNAL FRACTURE, LEFT SCAPULAR SPINE FRACTURE, LEFT RIB FRACTURES 2 THROUGH 8, T11 FRACTURE AND POSSIBLY L1 ANTERIOR FRACTURE PATIENT WAS SEEN BY DR. GRIMES YESTERDAY FOR ORTHOPEDIC CONSULT. SHE ORDERED A CLAMSHELL TLSO BRACE TO HELP STABILIZE HIS SPINE WELL LEFT SHOULDER AND CHEST. HE IS RECEIVING DILAUDID UI DEVELOPER. ALSO ON GABAPENTIN. PATIENT LIVES IN [facility] AND WAS VISITING AT FAMILY HOME ON [facility]. HIS SON HAS BEEN STAYING WITH HIM IN THE ROOM. FAMILY IS CONSIDERING HAVING HIM GO TO A NURSING FACILITY IN THE [facility] WHERE MOST OF THE FAMILY [place]. Exam Vital Signs (past 8 hours): - 12/17/17 04:31 Temperature 98.0 F Pulse Rate 72 Respiratory Rate 20 Blood Pressure 159/91 H Pulse Oximetry 97 Oxygen Delivery Method Room Air Oxygen Flow Rate 2 Narrative Exam Narrative: ALERT, ORIENTED NO ACUTE DISTRESS RESTING IN BED. ARMS. EASTERN PHILOSOPHY PROFESSOR STRONG AND EQUAL. PULSES AND SENSATION AND SYMMETRICAL. MILD TO MODERATE SWELLING TO THE LEFT SHOULDER AREA WITH AREAS OF ECCHYMOSIS. MODERATE TENDERNESS ON PALPATION OF DISTAL AND PROXIMAL CLAVICLE AND SUPERIOR STERNAL AREA. LEGS. NO CALF PAIN OR SWELLING. PULSES SYMMETRICAL. GOOD SENSATION TO TOUCH TO THE LOWER LEGS. GOOD STRENGTH ON FOOT DORSIFLEXION PLANTAR FLEXION. Objective Labs Result Diagrams: 12/15/17 20:20 12/15/17 20:20 Assessment & Plan (1) Sternal fracture: Current visit: Yes Status: Acute (2) Closed left clavicular fracture: Current visit: Yes Status: Acute (3) Closed left scapular fracture: Current visit: Yes Status: Acute (4) Left rib fracture: Current visit: Yes Status: Acute (5) Closed T11 fracture: Current visit: Yes Status: Acute (6) Closed L1 vertebral fracture: Current visit: Yes Status: Acute Plan: Assessment/Plan Narrative: PLAN: PATIENT IS SCHEDULED TO HAVE CLAMSHELL BRACE FITTED BY [facility] TODAY. THIS SHOULD ALLOW HIM TO BE MORE ACTIVE. RECOMMEND THAT HE USE AN INSPIROMETER MUCH POSSIBLE TO AVOID POSSIBLE PNEUMONIA. PATIENT IS DESIRING TO BE PLACED IN A SNF IN [facility] TO BE CLOSER TO FAMILY. ANTICIPATE DISCHARGE ONCE HE IS STABLE AND HAS BRACE IN PLACE. Quality VTE Deep Vein Thrombosis/Pulmonary Embolism Present on Admission: No
[2017-12-17] MEDS: GABAPENTIN 300 MG CAPSULE PO ×2 (08:57→21:53)
--- NOTE | 2017-12-17 11:16 | CM.DPC ---
Addendum entered by BLAYNE Goldstein 12/17/17 14:10: Spoke w/Laura at [facility] P# [phone]. Pt has been accepted at their SNF,although, depending on the day pt is DC, Laura explains they can not guarantee a bed will be available- d/t pending admissions. Following closely, may need a b/u choice from pt's family. Original Note: DCP Cont: Spoke w/pt's son/DPOA Ibrahima; pt sleeping. Pt was fitted for his brace this morning and it will need to be custom ordered/made, available Wednesday. Family interested in [facility] P# [phone]. Requested that senior unix system administrator Liliana fax clinical packet there for new referral. It remains unclear when pt will be ready for DC since he will likely not start work w/ PT/OT until his brace is fitted and in place, hopefully Wednesday. Following closely. BLAYNE Goldstein
--- NOTE | 2017-12-17 12:13 | PT.IPTN ---
Current Diagnoses Unspecified fracture of T11-T12 vertebra, initial encounter for closed fracture (12/16/17) Unspecified fracture of sternum, initial encounter for closed fracture (12/16/17) Fracture of one rib, left side, initial encounter for closed fracture (12/16/17) Unspecified fracture of first lumbar vertebra, initial encounter for closed fracture (12/16/17) Fracture of unspecified part of left clavicle, initial encounter for closed fracture (12/16/17) Fracture of unspecified part of scapula, left shoulder, initial encounter for closed fracture (12/16/17) Physical Therapy Treatment Note M3 PT-IP Subjective Start: 12/16/17 16:41 Freq: NEEDED Status: Active Protocol: Document 12/17/17 12:11 AB (Rec: 12/17/17 12:13 AB [id number]) Subjective Physical Therapy Visit Type Notes reviewed doctor's consultation and progress note and dr. duarte ordered clamshell TLSO for pt and pt can be mobilized for PT once TLSO is available . contacted [facility] for custom fit TLSO. Pt on hold for PT until TLSO is available.
--- NOTE | 2017-12-17 12:55 | CM.DPC ---
Faxed SNF referral to [facility] per María. They accepted and messaged relayed to María.
--- NOTE | 2017-12-17 13:22 | P.PN_ITS ---
Subjective Date Patient Seen: 12/17/17 Time Patient Seen: 13:20 Interval history: Sleeping with family at bedside. Reports pain is reasonably well controlled though it is difficult to take a deep breath. Exam Vital Signs (past 8 hours): - 12/17/17 08:00 12/17/17 12:46 Temperature 99.1 F 98.5 F Pulse Rate 78 97 H Respiratory Rate 16 18 Blood Pressure 140/79 H 148/88 H Pulse Oximetry 96 94 Oxygen Delivery Method Nasal Cannula Oxygen Flow Rate 2 Narrative Exam Narrative: Lung sounds significantly decreased on the left side and somewhat decreased on the right. O2 saturation is 96% on 2 L nasal cannula. Bruising developing along the chest and clavicle anteriorly and posteriorly as well as in the axilla and the lateral chest wall on the left side. No crepitance. Appropriately tender. Objective Labs Result Diagrams: 12/15/17 20:20 12/15/17 20:20 Assessment & Plan Plan: Assessment/Plan Narrative: Status post fall with multiple fractures including clavicle fracture, sternal fracture, scapular fracture, multiple rib fractures, T11 fracture and possibly L1 fracture. Prosthetics cane and discussed fitting with the patient. Current plan is for him to be back on Wednesday with a brace. Placement services are working on a facility somewhere in [place]. Family has gone to view facilities prior to recommending 1 to their father. Will try 20 mg of IV Lasix. This may decrease oxygen requirement. Quality VTE Deep Vein Thrombosis/Pulmonary Embolism Present on Admission: No
[2017-12-17] MEDS: FUROSEMIDE 20 MG/2 ML VIAL IV (15:00)
--- NOTE | 2017-12-17 16:07 | PT.IPTN ---
Current Diagnoses Unspecified fracture of T11-T12 vertebra, initial encounter for closed fracture (12/16/17) Unspecified fracture of sternum, initial encounter for closed fracture (12/16/17) Fracture of one rib, left side, initial encounter for closed fracture (12/16/17) Unspecified fracture of first lumbar vertebra, initial encounter for closed fracture (12/16/17) Fracture of unspecified part of left clavicle, initial encounter for closed fracture (12/16/17) Fracture of unspecified part of scapula, left shoulder, initial encounter for closed fracture (12/16/17) Physical Therapy Treatment Note M3 PT-IP Subjective Start: 12/16/17 16:41 Freq: NEEDED Status: Active Protocol: Document 12/17/17 16:04 AB (Rec: 12/17/17 16:07 AB [id number]) Subjective Physical Therapy Visit Type Notes Raven brim setter came in to fit pt with TLSO brace and will be coming back on Wednesday with the brace for the pt.
--- NOTE | 2017-12-18 | DI.RAD.S_ITS ---
PROCEDURE: XR CHEST 1V INDICATIONS: hemothorax TECHNIQUE: One view of the chest was acquired. COMPARISON: [facility], CT, CT CHEST ABD PEL W CON, 12/15/2017, 20:55. [facility], CR, XR CHEST 1V, 12/16/2017, 11:26. FINDINGS: Surgical changes and devices: None. Lungs and pleura: There is slight increase in a small left pleural fluid collection compatible history of a pneumothorax. There is also a small persistent right pleural collection which appears unchanged. Increased pulmonary vascular prominence is noted suggestive of mild pulmonary edema. There are linear bilateral opacities likely representing atelectasis. No definite pneumothorax. Mediastinum: Mediastinal contours appear prominent but similar to the prior studies. Heart size is enlarged. Bones and chest wall: A mildly displaced fracture of the distal left clavicle is redemonstrated. The previously described rib fractures are not well evaluated on the current study. There are gas-distended loops of bowel partially visualized within the upper abdomen. IMPRESSION: 1. Slightly increased small left pleural fluid collection. 2. Increased gas-distended loops of bowel partially visualized in the upper abdomen. Recommend correlation with clinical symptoms. 3. Bilateral linear opacities in the lungs suggestive of atelectasis. Mild pulmonary vascular prominence is also suggestive of mild edema. Dictated by: Adrian Mccallum M.D. on 12/18/2017 at 8:36 Approved by: Adrian Mccallum M.D. on 12/18/2017 at 8:41
[2017-12-18] MEDS: SODIUM CHLORIDE 0.9% 1,000 ML 125 ML IV ×3 (01:10→16:28)
[2017-12-18 05:37] LABS: Add Manual Diff / Slide Review NO; Basophils Percent Auto 0.3 % (0-2); Eosinophils Percent Auto 0.5 % (2-4); Hematocrit 31.8 % (41-53); Hemoglobin 10.7 g/dL (13.5-17.5); Lymphocytes Percent Auto 8.3 % (25-40); Mean Corpuscular HGB Conc 33.5 % (30-36); Mean Corpuscular Hemoglobin 28.9 PG (26-34); Mean Corpuscular Volume 86.3 fL (80-100); Monocytes Percent Auto 6.5 % (3-14); Neutrophils Absolute Auto 11200 /uL (3000-5900); Neutrophils Percent Auto 84.4 % (50-75); Platelet Count 90 X10^3/uL (150-400); Red Blood Cell Count 3.69 X10^6/uL (4.5-5.9); Red Cell Distribution Width 13.6 % (11.6-14.8); White Blood Cell Count 13.3 X10^3/uL (4.5-11.0)
[2017-12-18 05:42] LABS: Alanine Aminotransferase 46 IU/L (21-72); Albumin 2.8 g/dL (3.5-5.0); Alkaline Phosphatase 49 U/L (38-126); Aspartate Aminotransferase 59 IU/L (17-59); BUN Creatinine Ratio 25.7 (6-22); Bilirubin Total 0.7 mg/dL (0.2-1.3); Blood Urea Nitrogen 18 mg/dL (9-20); Calcium 7.6 mg/dL (8.4-10.2); Carbon Dioxide 26 mmol/L (22-32); Chloride 104 mmol/L (98-107); Estimated Glomerular Filt Rate > 60.0 mL/min (>60); Globulin 2.9 g/dL (1.7-4.1); Glucose 115 mg/dL (80-110); HEMOLYSIS < 15 (0-50); Potassium 3.6 mmol/L (3.4-5.1); Sodium 135 mmol/L (137-145); Total Protein 5.7 g/dL (6.3-8.2)
[2017-12-18 06:07] VITALS: BP 160/91; PULSE 94; RESP 16; TEMP 37.4; O2SAT 97
[2017-12-18] MEDS: HYDROMORPHONE PCA 6 MG/30 ML PCA.VIAL IV ×3 (06:36→20:30)
[2017-12-18 08:00] VITALS: BP 163/88; PULSE 94; RESP 14; TEMP 37.1; O2SAT 92
--- NOTE | 2017-12-18 08:05 | PM.CN ---
History of Present Illness Date Patient Seen: 12/18/17 Chief complaint: Fell Off Deck Reason for consult: Multiple fractures Narrative: Patient is seen bedside after being admitted on December 15 after falling off his daughter's deck. Patient sustained multiple rib fractures two left clavicle fractures, and two vertebral compression fractures. Patient is waiting on a custom brace from [employer]. His pain is controlled. He should be discharged on Wednesday to a SNF. [facility] Medical History Arthritis (Acute) Hypertension (Acute) Memory deficit (Acute) Prostate CA (Acute) Family History: Reviewed 12/16/17 by Marianne Law MD Social History household members: none Smoking Status: Former smoker Meds Home Medications Medication Instructions Recorded Confirmed Type amlodipine 2.5 mg PO DAILY 12/16/17 12/16/17 History cholecalciferol (vitamin D3) 2,000 unit PO DAILY 12/16/17 12/16/17 History [Vitamin D3] donepezil 5 mg PO DAILY 12/16/17 12/16/17 History doxycycline hyclate [Targadox] 50 mg PO PRN PRN 12/16/17 12/16/17 History memantine 10 mg PO QAM 12/16/17 12/16/17 History Allergies Allergy/AdvReac Type Severity Reaction Status Date / Time No Known Drug Allergies Allergy Verified 12/15/17 20:33 Review of Systems Review of Systems All systems reviewed & are unremarkable except as noted in HPI and below Exam Vital Signs (past 8 hours): - 12/18/17 06:07 Temperature 99.4 F Pulse Rate 94 H Respiratory Rate 16 Blood Pressure 160/91 H Pulse Oximetry 97 Oxygen Delivery Method Nasal Cannula Oxygen Flow Rate 2 Narrative Exam Narrative: Well developed, well nourished, in no acute distress. Patient is somnolent this morning. He does arouse easily however. He has bruising over his left clavicle but is NVI in all extremities. Deep breathing is still painful for him. Objective Labs Result Diagrams: 12/18/17 05:15 12/18/17 05:15 Labs: Laboratory Results - last 24 hr 12/18/17 12/18/17 05:15 05:15 WBC 13.3 H RBC 3.69 L Hgb 10.7 L Hct 31.8 L MCV 86.3 MCH 28.9 MCHC 33.5 RDW 13.6 Plt Count 90 L Neut % (Auto) 84.4 H Lymph % (Auto) 8.3 L [place] % (Auto) 6.5 Eos % (Auto) 0.5 L Baso % (Auto) 0.3 Neut # (Auto) 41520 H Sodium 135 L Potassium 3.6 Chloride 104 Carbon Dioxide 26 BUN 18 Creatinine 0.70 Estimated GFR > 60.0 BUN/Creatinine Ratio 25.7 H Glucose 115 H Calcium 7.6 L Total Bilirubin 0.7 AST 59 ALT 46 Alkaline Phosphatase 49 Total Protein 5.7 L Albumin 2.8 L Globulin 2.9 Albumin/Globulin Ratio 1.0 Assessment & Plan Plan: Assessment/Plan Narrative: Consider scaling back pain medication due to patient's somnolence. Encourage deep breathing incentive spirometry while awake. Continue weight-bearing restrictions of nonweightbearing on the upper left extremity. Awaiting custom brace. D/C to SNF once he is medically cleared and receives his brace. Time Spent With Patient Time with patient: less than 15 minutes
--- NOTE | 2017-12-18 08:08 | P.CONS_ITS ---
History of Present Illness Date Patient Seen: 12/18/17 Chief complaint: Fell Off Deck Reason for consult: Multiple fractures Narrative: Patient is seen bedside after being admitted on December 15 after falling off his daughter's deck. Patient sustained multiple rib fractures two left clavicle fractures, and two vertebral compression fractures. Patient is waiting on a custom brace from [employer]. His pain is controlled. He should be discharged on Wednesday to a SNF. [facility] Medical History Arthritis (Acute) Hypertension (Acute) Memory deficit (Acute) Prostate CA (Acute) Family History: Reviewed 12/16/17 by Marianne Law MD Social History household members: none Smoking Status: Former smoker Meds Home Medications Medication Instructions Recorded Confirmed Type amlodipine 2.5 mg PO DAILY 12/16/17 12/16/17 History cholecalciferol (vitamin D3) 2,000 unit PO DAILY 12/16/17 12/16/17 History [Vitamin D3] donepezil 5 mg PO DAILY 12/16/17 12/16/17 History doxycycline hyclate [Targadox] 50 mg PO PRN PRN 12/16/17 12/16/17 History memantine 10 mg PO QAM 12/16/17 12/16/17 History Allergies Allergy/AdvReac Type Severity Reaction Status Date / Time No Known Drug Allergies Allergy Verified 12/15/17 20:33 Review of Systems Review of Systems All systems reviewed & are unremarkable except as noted in HPI and below Exam Vital Signs (past 8 hours): - 12/18/17 06:07 Temperature 99.4 F Pulse Rate 94 H Respiratory Rate 16 Blood Pressure 160/91 H Pulse Oximetry 97 Oxygen Delivery Method Nasal Cannula Oxygen Flow Rate 2 Narrative Exam Narrative: Well developed, well nourished, in no acute distress. Patient is somnolent this morning. He does arouse easily however. He has bruising over his left clavicle but is NVI in all extremities. Deep breathing is still painful for him. Objective Labs Result Diagrams: 12/18/17 05:15 12/18/17 05:15 Labs: Laboratory Results - last 24 hr 12/18/17 12/18/17 05:15 05:15 WBC 13.3 H RBC 3.69 L Hgb 10.7 L Hct 31.8 L MCV 86.3 MCH 28.9 MCHC 33.5 RDW 13.6 Plt Count 90 L Neut % (Auto) 84.4 H Lymph % (Auto) 8.3 L [place] % (Auto) 6.5 Eos % (Auto) 0.5 L Baso % (Auto) 0.3 Neut # (Auto) 84628 H Sodium 135 L Potassium 3.6 Chloride 104 Carbon Dioxide 26 BUN 18 Creatinine 0.70 Estimated GFR > 60.0 BUN/Creatinine Ratio 25.7 H Glucose 115 H Calcium 7.6 L Total Bilirubin 0.7 AST 59 ALT 46 Alkaline Phosphatase 49 Total Protein 5.7 L Albumin 2.8 L Globulin 2.9 Albumin/Globulin Ratio 1.0 Assessment & Plan Plan: Assessment/Plan Narrative: Consider scaling back pain medication due to patient's somnolence. Encourage deep breathing incentive spirometry while awake. Continue weight-bearing restrictions of nonweightbearing on the upper left extremity. Awaiting custom brace. D/C to SNF once he is medically cleared and receives his brace. Time Spent With Patient Time with patient: less than 15 minutes
[2017-12-18] MEDS: GABAPENTIN 300 MG CAPSULE PO (08:42)
--- NOTE | 2017-12-18 08:55 | PM.PN.1 ---
Subjective Date Patient Seen: 12/18/17 Time Patient Seen: 08:55 Interval history: Mr. Mann is very sleepy this morning. His daughter was reports that he has been having a feeling of fullness like he needs to have a bowel movement. He sat on the bedpan in bed for a while this morning and passed quite a bit of air but was not able have a bowel movement. He is requesting a suppository. He denies nausea. He has been eating adequately. Pain is still a significant problem and will be for quite a while. Neurontin makes him quite sleepy but does control his pain well. Exam Vital Signs (past 8 hours): - 12/18/17 06:07 Temperature 99.4 F Pulse Rate 94 H Respiratory Rate 16 Blood Pressure 160/91 H Pulse Oximetry 97 Oxygen Delivery Method Nasal Cannula Oxygen Flow Rate 2 Narrative Exam Narrative: Sleepy but oriented Lungs: Sound much better than yesterday. Very few crackles at the bases. O2 was removed and his sat remained at 93% on room air while sleeping. We will discontinue O2 and continuous pulse ox. Heart: Regular rate and rhythm Chest: No crepitance, bruising continues to develop anteriorly and posteriorly along his chest and axilla and anterior posteriorly along his left shoulder. Abdomen: Soft, nontender, active bowel sounds. Extremities: Warm and well perfused. Objective Labs Result Diagrams: 12/18/17 05:15 12/18/17 05:15 Labs: Laboratory Results - last 24 hr 12/18/17 12/18/17 05:15 05:15 WBC 13.3 H RBC 3.69 L Hgb 10.7 L Hct 31.8 L MCV 86.3 MCH 28.9 MCHC 33.5 RDW 13.6 Plt Count 90 L Neut % (Auto) 84.4 H Lymph % (Auto) 8.3 L [place] % (Auto) 6.5 Eos % (Auto) 0.5 L Baso % (Auto) 0.3 Neut # (Auto) 83343 H Sodium 135 L Potassium 3.6 Chloride 104 Carbon Dioxide 26 BUN 18 Creatinine 0.70 Estimated GFR > 60.0 BUN/Creatinine Ratio 25.7 H Glucose 115 H Calcium 7.6 L Total Bilirubin 0.7 AST 59 ALT 46 Alkaline Phosphatase 49 Total Protein 5.7 L Albumin 2.8 L Globulin 2.9 Albumin/Globulin Ratio 1.0 Assessment & Plan Plan: Assessment/Plan Narrative: Multiple fractures after fall from approximately 5 ft. 1. Continue ISS and aggressive pulmonary toilet 2. We will start Colace and Dulcolax. The patient is at somewhat of a disadvantages he is not able to mobilize until he has his brace in place. 3. Pulmonary status is improving will discontinue continuous pulse ox and O2 Quality VTE Deep Vein Thrombosis/Pulmonary Embolism Present on Admission: No
[2017-12-18] MEDS: MEMANTINE HCL 5 MG TABLET 10 MG PO (09:54)
[2017-12-18] MEDS: AMLODIPINE 2.5 MG TABLET PO (09:54)
[2017-12-18] MEDS: DOCUSATE 250 MG CAPSULE PO ×2 (09:55→20:29)
[2017-12-18] MEDS: BISACODYL 10 MG SUPP PR (09:55)
[2017-12-18 12:00] VITALS: BP 133/82; PULSE 88; RESP 16; TEMP 36.6; O2SAT 93
--- NOTE | 2017-12-18 13:46 | CM.DPC ---
DCP Cont: Introduced role to pt and then spoke w/his dtr Judit w/pt's permission to review DCP. Updated Judit that [place] [facility] had been contacted and pt has been accepted pending bed availability. Judit has one possible b/u choice, a SNF in [place], but would like to look at it this afternoon before they are contacted by CM team. Reviewed transportation options; made Judit aware that Medicare would likely not cover an ambulance ride from [place] to [facility]. Judit is concerned about pt transporting in a private vehicle and would like to discuss BLS vs cabulance closer to pt's DC. Judit indicated that the private cost should not be an issue for pt's family to cover. This DOOR SLINGER suggested PT/OT be consulted on this question when they work with pt, dtr appreciative. Following closely. [facility] will need to be updated on pt's anticipated DC date. Hopefully family can give a b/u choice in case [facility] is full. Transportation will need to be discussed again closer to pt's DC date. PASSR completed. BLAYNE Goldstein
[2017-12-18 15:48] VITALS: BP 142/85; PULSE 90; RESP 20; TEMP 35.8; O2SAT 92
[2017-12-18 19:41] VITALS: BP 159/95; PULSE 97; RESP 18; TEMP 36.2; O2SAT 94
[2017-12-18] MEDS: DONEPEZIL 5 MG TABLET PO (20:29)
[2017-12-18] MEDS: GABAPENTIN 100 MG CAPSULE 200 MG PO (20:29)
[2017-12-19] VITALS (7 sets, daily range): BP systolic 140–166; BP diastolic 62–86; PULSE 87–109; RESP 14–20; TEMP 36.3–37; O2SAT 91–98
[2017-12-19] MEDS: SODIUM CHLORIDE 0.9% 1,000 ML 125 ML IV (00:26)
[2017-12-19] MEDS: HYDROMORPHONE PCA 6 MG/30 ML PCA.VIAL IV ×2 (05:48→14:44)
--- NOTE | 2017-12-19 09:09 | PM.PN.1 ---
Subjective Date Patient Seen: 12/19/17 Time Patient Seen: 09:22 Interval history: Patient is status post a 5 ft fall off a deck resulting in multiple fractures. Patient resting comfortably today in his bed. No complaints overnight. Exam Vital Signs (past 8 hours): - 12/19/17 05:22 12/19/17 08:20 Temperature 98.0 F 97.6 F Pulse Rate 87 91 H Respiratory Rate 16 14 Blood Pressure 166/73 H 153/69 H Pulse Oximetry 93 94 Oxygen Delivery Method Nasal Cannula Oxygen Flow Rate 0 Narrative Exam Narrative: Patient is quite a bit of bruising mainly to the left clavicle shoulder and arm. Patient has good range of motion of the fingers wrist and shoulder. Deformity of the clavicle but no sign of any skin breakdown there. Patient has good range of motion of the toes and ankle. 5/5 strength in dorsiflexion and plantar flexion of the toes and ankle. Palpable pedal pulses. Nontender to palpation to the posterior aspect the calf. Objective Labs Result Diagrams: 12/18/17 05:15 12/18/17 05:15 Assessment & Plan Plan: Assessment/Plan Narrative: Patient to be fitted for a brace tomorrow. Once that done patient can start getting up and ambulating. We will eventually need placement. Quality VTE Deep Vein Thrombosis/Pulmonary Embolism Present on Admission: No
[2017-12-19] MEDS: GABAPENTIN 100 MG CAPSULE 200 MG PO ×2 (10:00→20:28)
[2017-12-19] MEDS: AMLODIPINE 2.5 MG TABLET PO (10:00)
[2017-12-19] MEDS: MEMANTINE HCL 5 MG TABLET 10 MG PO (10:00)
--- NOTE | 2017-12-19 14:02 | PM.PN.1 ---
Subjective Date Patient Seen: 12/19/17 Time Patient Seen: 14:02 Interval history: Pleasant and surrounded by family. Reports it hurts when he coughs. Denies nausea. Diarrhea has become an issue overnight. Exam Vital Signs (past 8 hours): - 12/19/17 08:20 12/19/17 11:00 Temperature 97.6 F 97.3 F L Pulse Rate 91 H 90 Respiratory Rate 14 16 Blood Pressure 153/69 H 154/86 H Pulse Oximetry 94 93 Oxygen Delivery Method Nasal Cannula Oxygen Flow Rate 0 Narrative Exam Narrative: Lungs: Improved air movement on the left side. Still some crackles at the base but definitely improved effort. Right lung is clear. Heart: Regular rate and rhythm, no murmur Abdomen: Soft, nontender, hyperactive bowel tones. Objective Labs Result Diagrams: 12/18/17 05:15 12/18/17 05:15 Assessment & Plan Plan: Assessment/Plan Narrative: 1. We will Hep-Lock IV fluid and start oral Percocet for better pain control. Will continue as needed Dilaudid for breakthrough. 2. Already back on all of his home medications 3. Clamshell brace to be placed tomorrow and this will help with mobilization. Unfortunately, he has developed a stage II pressure ulcer between his buttocks. Barrier cream was placed. We will request a pressure relief bed. Quality VTE Deep Vein Thrombosis/Pulmonary Embolism Present on Admission: No
[2017-12-19] MEDS: ENOXAPARIN 40 MG/0.4 ML SYRINGE SUBCUT (15:55)
[2017-12-19] MEDS: OXYCODONE/ACETAMINOPHEN 5/325 TABLET 1 TAB PO ×2 (16:02→20:29)
[2017-12-19] MEDS: HYDROMORPHONE 0.5 MG INJ IV (16:46)
[2017-12-19] MEDS: DONEPEZIL 5 MG TABLET PO (20:29)
[2017-12-20] MEDS: HYDROMORPHONE 0.5 MG INJ IV (02:43)
[2017-12-20 05:00] VITALS: BP 153/74; PULSE 77; RESP 16; TEMP 37.1; O2SAT 93
--- NOTE | 2017-12-20 07:33 | PM.PN.1 ---
Subjective Date Patient Seen: 12/20/17 Time Patient Seen: 07:33 Interval history: Patient states his pain is [id number]. No fever or chills. No nausea vomiting. Pain with breathing secondary to rib fractures but is not short of breath. Exam Vital Signs (past 8 hours): - 12/19/17 23:55 12/20/17 05:00 Temperature 97.7 F 98.7 F Pulse Rate 93 H 77 Respiratory Rate 16 16 Blood Pressure 142/78 H 153/74 H Pulse Oximetry 93 93 Oxygen Delivery Method Room Air Oxygen Flow Rate 0 Narrative Exam Narrative: Ecchymosis present over the proximal clavicle. Skin is intact in this area. Ecchymosis present over the left scapula and left upper trapezius as well as into the proximal left upper arm. The patient has good strength with elbow flexion and extension, wrist flexion extension, finger flexion extension bilaterally. Sensation grossly intact to light touch bilateral upper extremities. Patient also has good strength with dorsiflexion, plantar flexion, great toe extension bilaterally. Sensation grossly intact to light touch bilateral lower extremities. Upper and lower extremities are warm and dry. Objective Imaging Chest x-ray: Radiologist's impression: 1. Slightly increased small left pleural fluid collection. 2. Increased gas-distended loops of bowel partially visualized in the upper abdomen. Recommend correlation with clinical symptoms. 3. Bilateral linear opacities in the lungs suggestive of atelectasis. Mild pulmonary vascular prominence is also suggestive of mild edema. Left shoulder 12/16/17 IMPRESSION: Medial and lateral left clavicular fractures, minimally displaced. No definite scapular fracture found. CT chest, abd, pel, with con 12/15/17 1. Nondisplaced sternal fracture. No mediastinal hematoma. 2. Fracture of the left medial clavicular head. 3. Multiple left rib fractures and trace left hemothorax. 4. Acute compression fracture of T11 is mild posterior displacement. 5. A nondisplaced left scapular fracture. 6. Moderate cardiomegaly. 7. Diffuse interstitial infiltrates may be secondary to chronic congestive heart failure or chronic interstitial lung disease. There is mild pulmonary fibrosis. 8. Distended stomach and small hiatal hernia. 9. No acute traumatic process in abdomen or pelvis. 10. Enlargement of the left sternocleidomastoid muscle suspicious for intramuscular hematoma Labs Result Diagrams: 12/18/17 05:15 12/18/17 05:15 Assessment & Plan Plan: Assessment/Plan Narrative: Patient is to be fitted with brace. [facility] has been contacted. Once brace is on patient should be able to mobilize out of bed. Physical therapy to mobilize patient. Catheter will remain in until patient mobilizing. Quality VTE Deep Vein Thrombosis/Pulmonary Embolism Present on Admission: No
--- NOTE | 2017-12-20 07:47 | P.PN_ITS ---
Subjective Date Patient Seen: 12/20/17 Time Patient Seen: 07:33 Interval history: Patient states his pain is [id number]. No fever or chills. No nausea vomiting. Pain with breathing secondary to rib fractures but is not short of breath. Exam Vital Signs (past 8 hours): - 12/19/17 23:55 12/20/17 05:00 Temperature 97.7 F 98.7 F Pulse Rate 93 H 77 Respiratory Rate 16 16 Blood Pressure 142/78 H 153/74 H Pulse Oximetry 93 93 Oxygen Delivery Method Room Air Oxygen Flow Rate 0 Narrative Exam Narrative: Ecchymosis present over the proximal clavicle. Skin is intact in this area. Ecchymosis present over the left scapula and left upper trapezius as well as into the proximal left upper arm. The patient has good strength with elbow flexion and extension, wrist flexion extension, finger flexion extension bilaterally. Sensation grossly intact to light touch bilateral upper extremities. Patient also has good strength with dorsiflexion, plantar flexion , great toe extension bilaterally. Sensation grossly intact to light touch bilateral lower extremities. Upper and lower extremities are warm and dry. Objective Imaging Chest x-ray: Radiologist's impression: 1. Slightly increased small left pleural fluid collection. 2. Increased gas-distended loops of bowel partially visualized in the upper abdomen. Recommend correlation with clinical symptoms. 3. Bilateral linear opacities in the lungs suggestive of atelectasis. Mild pulmonary vascular prominence is also suggestive of mild edema. Left shoulder 12/16/17 IMPRESSION: Medial and lateral left clavicular fractures, minimally displaced. No definite scapular fracture found. CT chest, abd, pel, with con 12/15/17 1. Nondisplaced sternal fracture. No mediastinal hematoma. 2. Fracture of the left medial clavicular head. 3. Multiple left rib fractures and trace left hemothorax. 4. Acute compression fracture of T11 is mild posterior displacement. 5. A nondisplaced left scapular fracture. 6. Moderate cardiomegaly. 7. Diffuse interstitial infiltrates may be secondary to chronic congestive heart failure or chronic interstitial lung disease. There is mild pulmonary fibrosis. 8. Distended stomach and small hiatal hernia. 9. No acute traumatic process in abdomen or pelvis. 10. Enlargement of the left sternocleidomastoid muscle suspicious for intramuscular hematoma Labs Result Diagrams: 12/18/17 05:15 12/18/17 05:15 Assessment & Plan Plan: Assessment/Plan Narrative: Patient is to be fitted with brace. [facility] has been contacted. Once brace is on patient should be able to mobilize out of bed. Physical therapy to mobilize patient. Catheter will remain in until patient mobilizing. Quality VTE Deep Vein Thrombosis/Pulmonary Embolism Present on Admission: No
[2017-12-20] MEDS: GABAPENTIN 100 MG CAPSULE 200 MG PO ×2 (08:27→20:35)
[2017-12-20] MEDS: MEMANTINE HCL 5 MG TABLET 10 MG PO (08:27)
[2017-12-20] MEDS: AMLODIPINE 2.5 MG TABLET PO (08:27)
[2017-12-20] MEDS: ENOXAPARIN 40 MG/0.4 ML SYRINGE SUBCUT (08:28)
[2017-12-20 08:31] VITALS: BP 139/109; PULSE 114; RESP 18; TEMP 36.9; O2SAT 94
--- NOTE | 2017-12-20 10:24 | PT.IPTN ---
Current Diagnoses Unspecified fracture of T11-T12 vertebra, initial encounter for closed fracture (12/16/17) Unspecified fracture of sternum, initial encounter for closed fracture (12/16/17) Fracture of one rib, left side, initial encounter for closed fracture (12/16/17) Unspecified fracture of first lumbar vertebra, initial encounter for closed fracture (12/16/17) Fracture of unspecified part of left clavicle, initial encounter for closed fracture (12/16/17) Fracture of unspecified part of scapula, left shoulder, initial encounter for closed fracture (12/16/17) Physical Therapy Treatment Note Subjective Physical Therapy Visit Type Type Administrative Note Notes Still awaiting TLSO delivery, which should happen this afternoon. Pt is on strict bedrest until he has the brace . RN to notify this remote mortgage underwriter once P&O is here for brace fitting. If it is early enough in the afternoon pt will be seen today, otherwise PT eval may need to be pushed to Wednesday.
[2017-12-20] MEDS: OXYCODONE/ACETAMINOPHEN 5/325 TABLET 1 TAB PO ×2 (11:17→16:01)
[2017-12-20 12:00] VITALS: BP 144/95; PULSE 88; RESP 20; TEMP 36.9; O2SAT 92
--- NOTE | 2017-12-20 12:19 | CM.DPC ---
Clinicals, PT notes faxed to [facility] [phone] per Brisa.
--- NOTE | 2017-12-20 12:31 | CM.DPC ---
DCP/continued: Reviewed chart. Per notes, it is anticipated that back brace will be delivered to patient today. Once fitted patient will be encouraged to work with therapy. Previous notes indicate that SNF will be needed when patient is medically stable. SNF choice listed as preference is in [place]. No second choice indicated. ETHYLENE PLANT OPERATOR asked MARSHALL/Liliana to call facility and check on whether or not they will have bed this week. Liliana reports that facility not sure. In the meantime, ETHYLENE PLANT OPERATOR placed call to patient's son/Ibrahima ph# [phone]. Ibrahima reports that family has toured [facility] in [place] and now would like that has first SNF choice. Contact at [facility] is Amanda ph# [phone]. ETHYLENE PLANT OPERATOR placed call to Amanda and she confirms that she has toured the family. She does not anticipate any issue with bed availability but will not confirm whether or not they can accept until clinic reviewed. ETHYLENE PLANT OPERATOR asked MARSHALL/Liliana to fax all clinicals and demographic sheet to [phone]. In addition, to the above patient's son inquiring about transportation to facility at time of d/c. ETHYLENE PLANT OPERATOR explained to son that patient most likely will not qualify for non-urgent BLS transport paid for by Medicare because there are several facilities in the surrounding area that can provide same service. Son asked for resources for potential non-urgent BLS stretcher transport. ETHYLENE PLANT OPERATOR obtained two 1) is [facility] 2)[facility]. Will provide information to family about both agencies when discharge date, status and location known. P: [facility] reviewing for admit. This is families first SNF choice. Second is facility in [place] (see previous CM notes for details if needed). CM team to follow closely. BLAYNE Mckeon
--- NOTE | 2017-12-20 13:46 | PM.PN.1 ---
Subjective Date Patient Seen: 12/20/17 Time Patient Seen: 13:47 Interval history: Still awaiting clamshell brace placement. This will be extremely beneficial and being able to mobilize the patient and should help us manage his atelectasis most effectively. Diuresing nicely after 1 dose of Lasix this morning. Exam Vital Signs (past 8 hours): - 12/20/17 08:31 12/20/17 12:00 Temperature 98.4 F 98.4 F Pulse Rate 114 H 88 Respiratory Rate 18 20 Blood Pressure 139/109 H 144/95 H Pulse Oximetry 94 92 Oxygen Delivery Method Room Air Oxygen Flow Rate 0 Narrative Exam Narrative: Lungs: Decreased at the bases bilaterally with a few crackles. No wheezing. Heart: Regular rate and rhythm. Abdomen: Soft, no tenderness to palpation, active bowel sounds. Objective Labs Result Diagrams: 12/18/17 05:15 12/18/17 05:15 Assessment & Plan Plan: Assessment/Plan Narrative: 1. Awaiting clamshell brace placement so that he can be mobilized. Aggressive pulmonary toilet and ambulation once he has his brace in place. 2. Diarrhea after receiving Colace. Will cut back on the dose but now he needs continued stool softener to avoid constipation 3. Would like very much to discontinue his urinary catheter as soon as he is ambulatory. 4. He is on a waiting list for placement Quality VTE Deep Vein Thrombosis/Pulmonary Embolism Present on Admission: No
--- NOTE | 2017-12-20 15:01 | PT.IPTN ---
Current Diagnoses Unspecified fracture of T11-T12 vertebra, initial encounter for closed fracture (12/16/17) Unspecified fracture of sternum, initial encounter for closed fracture (12/16/17) Fracture of one rib, left side, initial encounter for closed fracture (12/16/17) Unspecified fracture of first lumbar vertebra, initial encounter for closed fracture (12/16/17) Fracture of unspecified part of left clavicle, initial encounter for closed fracture (12/16/17) Fracture of unspecified part of scapula, left shoulder, initial encounter for closed fracture (12/16/17) Physical Therapy Treatment Note Subjective Physical Therapy Visit Type Type Administrative Note Visit Start Time 13:40 Visit Stop Time 14:10 Total Visit Minutes 30 Notes PT assisted P&O in donning pt' s new custom fit TLSO, pt participated in rolling R and L with mod A with pain as the main limiting factor. Pt did report improvement of pain once the TLSO was all the way on, but he declined to get up at that time due to fatigue. Pt agreeable to try later today or tomorrow after getting a chance to rest. Pt was quite diaphoretic after getting the TLSO on, vitals normal, RN aware.
[2017-12-20 16:00] VITALS: BP 123/74; PULSE 85; RESP 16; TEMP 36.8; O2SAT 100
--- NOTE | 2017-12-20 16:13 | PT.IIE ---
Current Diagnoses Unspecified fracture of T11-T12 vertebra, initial encounter for closed fracture (12/16/17) Unspecified fracture of sternum, initial encounter for closed fracture (12/16/17) Fracture of one rib, left side, initial encounter for closed fracture (12/16/17) Unspecified fracture of first lumbar vertebra, initial encounter for closed fracture (12/16/17) Fracture of unspecified part of left clavicle, initial encounter for closed fracture (12/16/17) Fracture of unspecified part of scapula, left shoulder, initial encounter for closed fracture (12/16/17) Medical History (Last Reviewed 12/16/17 @ 19:06 by Marianne Law MD) Closed L1 vertebral fracture (Acute) Closed T11 fracture (Acute) Left rib fracture (Acute) Closed left scapular fracture (Acute) Closed left clavicular fracture (Acute) Sternal fracture (Acute) Fall (Acute) Arthritis (Acute) Hypertension (Acute) Memory deficit (Acute) Prostate CA (Acute) Physical Therapy Inpatient Evaluation/Re-Eval M1 PT/OT-IP Prior Functional Status Start: 12/16/17 16:41 Freq: NEEDED Status: Active Protocol: Document 12/20/17 15:51 [facility] (Rec: 12/20/17 16:13 [facility] [id number]) Medical Review Prior Functional Status Diet/Fluid Consistency Regular Mobility and Gait Amb without AD. Indep with ADLs and takes care of 1 acre yard Social History Household Members none Living Arrangements House Number of Floors (Floors) One Floor Number of Stairs To Enter/Railing? 2 LEIF w/rail M2 PT-IP Current Condition Start: 12/16/17 16:41 Freq: NEEDED Status: Active Protocol: Document 12/20/17 15:51 [facility] (Rec: 12/20/17 16:13 [facility] [id number]) Physical Therapy Current Condition Current Condition Evaluation Date 12/20/17 Treatment Diagnosis L clavicle & scapular fx, sternal fx & T11 fx. Precautions Lumbar Precautions Log Roll No Twisting Limit Bending Brace Must wear hard shell TLSO at all times Other Precautions NWB L UE Weight Bearing Status Weight Bearing Status Weight Bear as Tolerated Allowed Weight Bearing Amount (enter % LEs; NWB LUE or #) (%) M3 PT-IP Subjective Start: 12/16/17 16:41 Freq: NEEDED Status: Active Protocol: Document 12/20/17 15:51 [facility] (Rec: 12/20/17 16:13 [facility] [id number]) Subjective Physical Therapy Visit Type Type Initial Evaluation Visit Start Time 15:00 Visit Stop Time 15:45 Total Visit Minutes 45 Number of PANEL EDGE SEALER Visits 0 Physical Therapy Visit Comments Patient Comments Agreeable to try to get out of bed w/family encouragement Therapy Pain Assessment Pain When Pain Assessed During Mobility Pain Present Pain Present Pain Reported Location Left Chest Pain Behaviors Calling Out Facial Grimacing Moaning Wincing M4 PT-IP Mobility and Gait Start: 12/16/17 16:41 Freq: NEEDED Status: Active Protocol: Document 12/20/17 15:51 [facility] (Rec: 12/20/17 16:13 [facility] [id number]) PT-Bed Mobility Assessment Rolling Type of Rolling Log Rolling Roll to Right Level of Assist Maximal Assistance Supine to Sit Supine to Sit Maximum Assistance Bedrails Scooting Scooting to Edge of Bed Moderate Assistance PT-Transfer Assessment Sit to and From Stand Sit to and from Stand Moderate Assistance Equipment Transfer Assistive Device Gait Belt Small Based Quad Cane Orthotic/Prosthetic Devices or Brace: Yes Transfers Transfer Destination Chair Transfer Technique Stand Step Pivot Transfer Ability Level of Assist Minimal Assistance Comments Mobility Comments 2nd sit to stand performed from chair w/ min A; sat EOB & EOC for deep breathing cuieng & brace adjusted sitting EOB. Encouraged to do spirometer Gait Assessment Comments Gait Comments n/t d/t pt out of breath with transfer PT-Balance Assessment Sitting Balance and Reactions Static Sitting Balance Ability Fair Dynamic Sitting Balance Ability Poor Standing Balance and Reactions Static Standing Balance Ability Poor Dynamic Standing Balance Ability Poor M5 PT-IP Objective Assessments Start: 12/16/17 16:41 Freq: NEEDED Status: Active Protocol: Document 12/20/17 15:51 [facility] (Rec: 12/20/17 16:13 [facility] [id number]) Orientation Orientation/Cognition Level of Alertness Confusional State Safety Awareness Decreased Safety Awareness Gross Range of Motion Upper Extremity ROM Assessment Left Impaired Strength Upper Extremity Strength Assessment Left Impaired Lower Extremity Strength Assessment Bilaterally Impaired Comments Strength Comments Generalized weakness after fall and not out of bed for 4 days M6 PT-IP Treatment Start: 12/16/17 16:41 Freq: NEEDED Status: Active Protocol: Document 12/20/17 15:51 [facility] (Rec: 12/20/17 16:13 [facility] [id number]) Physical Therapy Treatment Education Education Provided Precautions Safety M7 PT-IP Assessment and Plan Start: 12/16/17 16:41 Freq: NEEDED Status: Active Protocol: Document 12/20/17 15:51 [facility] (Rec: 12/20/17 16:13 [facility] [id number]) PT Summary Assessment and Plan Potential Rehabilitation Potential Good Status of Condition at Evaluation Unstable Summary Impairments Pain Strength Balance Bed Mobility Transfers Gait Activity Tolerance Assessment Summary Pt presents with mult fractures after fall 6 ft off porch. He is short of breath with exertion & requires rest breaks during activity. Pt is motivated and cooperative and is likely to cont to advance with therapy. Goals Bed Mobility Goal Minimal Assistance Transfer Goal Minimal Assistance Gait Goal Minimal Assistance Gait Distance 35ft Days to Meet Goals 4 Frequency of Treatment Frequency Of Treatment Twice a Day Treatment Plan Physical Therapy Treatment Plan Bed Mobility Training Transfer Training Gait Training Therapeutic Exercise Balance Retraining Discharge Planning Recommendations To Nursing Amount of Assist Needed 2 Person Assist Discharge Recommendations PT Discharge Recommendations SNF Rehab
--- NOTE | 2017-12-20 19:21 | PC.NURSE ---
At 1600 patient worked with PT, transfered from bed to recliner. Wearing clamshell brace, which is ordered to keep on at all times. Sat in chair for at least an hour. Medicated with 1 Percocet after transfer. Since then son reported Harris increasingly fidgetty, trying to take brace off and saying OK, I'm leaving now. Dtr reported mild hallucinations, thought she was getting into the fridge (patient closet.) Family requests that percocet not be given again. I agree with this plan and will notify Dr, as there is no regular Tylenol on AUG. Harris now in bed, brace adjusted for rest period, he reports it pinches at axilla and sometimes tailbone area. Pillow cases used to protect axilla and I provided daughter alternative pads to tape onto brace if needed to protect patient's skin.
[2017-12-20 19:33] VITALS: BP 152/98; PULSE 84; RESP 16; TEMP 36.7; O2SAT 96
[2017-12-20] MEDS: DONEPEZIL 5 MG TABLET PO (20:35)
[2017-12-20] MEDS: SODIUM CHLORIDE 0.9% FLUSH 10 ML IV (20:35)
[2017-12-21 00:45] VITALS: BP 150/90; PULSE 82; RESP 22; TEMP 36.6; O2SAT 94
[2017-12-21] MEDS: ACETAMINOPHEN 325 MG TABLET 650 MG PO ×3 (01:01→16:34)
[2017-12-21 04:00] VITALS: BP 149/56; PULSE 78; RESP 16; TEMP 37.4; O2SAT 94
--- NOTE | 2017-12-21 04:50 | PC.NURSE ---
Records Coordinator- Pt oriented to self only. Very confused and restless, stating he's at a [employer]. Asking expert medical writer if I'm going to take the stairs to the next level. Intermittently attempting to take torso brace velco straps off. Clamshell brace readjusted for comfort, kept on at all times throughout shift. Under right arm, a folded pillow case placed under arm over brace to prevent pressure point. SCD's refused by pt's son Ibrahima to prevent further agitation. Tylenol po prn gven at 0100 for comfort, pt had facial grimacing with slow repositioning. Denies pain upon resting position. High fall risk precautions in place, Bed alarm on. Pt only slept approx 40 mins, Son Ibrahima at bedside throughout night.
[2017-12-21 05:59] LABS: Add Manual Diff / Slide Review NO; Basophils Percent Auto 0.4 % (0-2); Eosinophils Percent Auto 1.4 % (2-4); Hematocrit 33.7 % (41-53); Hemoglobin 11.5 g/dL (13.5-17.5); Lymphocytes Percent Auto 14.2 % (25-40); Mean Corpuscular HGB Conc 34.3 % (30-36); Mean Corpuscular Hemoglobin 29.2 PG (26-34); Mean Corpuscular Volume 85.3 fL (80-100); Monocytes Percent Auto 10.4 % (3-14); Neutrophils Absolute Auto 8000 /uL (3000-5900); Neutrophils Percent Auto 73.6 % (50-75); Platelet Count 169 X10^3/uL (150-400); Red Blood Cell Count 3.95 X10^6/uL (4.5-5.9); Red Cell Distribution Width 13.5 % (11.6-14.8); White Blood Cell Count 10.8 X10^3/uL (4.5-11.0)
[2017-12-21 06:09] LABS: BUN Creatinine Ratio 33.3 (6-22); Blood Urea Nitrogen 20 mg/dL (9-20); Calcium 8.1 mg/dL (8.4-10.2); Carbon Dioxide 30 mmol/L (22-32); Chloride 102 mmol/L (98-107); Estimated Glomerular Filt Rate > 60.0 mL/min (>60); Glucose 112 mg/dL (80-110); HEMOLYSIS < 15 (0-50); Potassium 2.9 mmol/L (3.4-5.1); Sodium 138 mmol/L (137-145)
--- NOTE | 2017-12-21 07:44 | PM.PN.1 ---
Subjective Date Patient Seen: 12/21/17 Time Patient Seen: 07:44 Interval history: Pt in bed. States pain is tolerable. Has clam shell back brace on. Wilburn was removed this am. Exam Vital Signs (past 8 hours): - 12/21/17 00:45 12/21/17 04:00 Temperature 97.9 F 99.4 F Pulse Rate 82 78 Respiratory Rate 22 16 Blood Pressure 150/90 H 149/56 H Pulse Oximetry 94 94 Oxygen Delivery Method Room Air Oxygen Flow Rate 0 Narrative Exam Narrative: Pt A&O x3. Appears comfortable. Ecchymosis over proximal clavicle. Skin intact. Ecchymosis over left scapula and upper trapezius. 5/5 BUE strength with NV status intact. 5/5 BLE with NV status intact. Objective Labs Result Diagrams: 12/21/17 05:40 12/21/17 05:40 Labs: Laboratory Results - last 24 hr 12/21/17 12/21/17 05:40 05:40 WBC 10.8 RBC 3.95 L Hgb 11.5 L Hct 33.7 L MCV 85.3 MCH 29.2 MCHC 34.3 RDW 13.5 Plt Count 169 Neut % (Auto) 73.6 Lymph % (Auto) 14.2 L [place] % (Auto) 10.4 Eos % (Auto) 1.4 L Baso % (Auto) 0.4 Neut # (Auto) 8000 H Sodium 138 Potassium 2.9 L Chloride 102 Carbon Dioxide 30 BUN 20 Creatinine 0.60 L Estimated GFR > 60.0 BUN/Creatinine Ratio 33.3 H Glucose 112 H Calcium 8.1 L Assessment & Plan Plan: Assessment/Plan Narrative: Start to mobilze with PT. Awaitng placement. Continue pain regimen. Quality VTE Deep Vein Thrombosis/Pulmonary Embolism Present on Admission: No
[2017-12-21 08:00] VITALS: BP 161/74; PULSE 98; RESP 18; TEMP 36.2; O2SAT 96
--- NOTE | 2017-12-21 09:15 | PT.IPTN ---
Current Diagnoses Unspecified fracture of T11-T12 vertebra, initial encounter for closed fracture (12/16/17) Unspecified fracture of sternum, initial encounter for closed fracture (12/16/17) Fracture of one rib, left side, initial encounter for closed fracture (12/16/17) Unspecified fracture of first lumbar vertebra, initial encounter for closed fracture (12/16/17) Fracture of unspecified part of left clavicle, initial encounter for closed fracture (12/16/17) Fracture of unspecified part of scapula, left shoulder, initial encounter for closed fracture (12/16/17) Physical Therapy Treatment Note M2 PT-IP Current Condition Start: 12/16/17 16:41 Freq: NEEDED Status: Active Protocol: Document 12/20/17 15:51 LR (Rec: 12/20/17 16:13 [facility] [id number]) Physical Therapy Current Condition Current Condition Evaluation Date 12/20/17 Treatment Diagnosis L clavicle & scapular fx, sternal fx & T11 fx. Precautions Lumbar Precautions Log Roll No Twisting Limit Bending Brace Must wear hard shell TLSO at all times Other Precautions NWB L UE Weight Bearing Status Weight Bearing Status Weight Bear as Tolerated Allowed Weight Bearing Amount (enter % LEs; NWB LUE or #) (%) M3 PT-IP Subjective Start: 12/16/17 16:41 Freq: NEEDED Status: Active Protocol: Document 12/21/17 09:15 AB (Rec: 12/21/17 10:54 AB [id number]) Subjective Physical Therapy Visit Type Type Treatment Note Visit Start Time 09:15 Visit Stop Time 09:55 Total Visit Minutes 40 Number of [employer] HELIC[employer]TER PILOT Visits 0 Physical Therapy Visit Comments Patient Comments pt with hallucinations stating that he saw 2 dogs and reaching over for things. informed nurse Therapy Pain Assessment Pain When Pain Assessed During Mobility Pain Present Pain Present Pain Reported Location Left Chest Scale Used pain scale not stated M4 PT-IP Mobility and Gait Start: 12/16/17 16:41 Freq: NEEDED Status: Active Protocol: Document 12/21/17 09:15 AB (Rec: 12/21/17 10:54 AB [id number]) PT-Transfer Assessment Sit to and From Stand Sit to and from Stand Minimal Assistance Equipment Transfer Assistive Device Gait Belt Small Based Quad Cane Transfers Transfer Destination Chair Transfer Technique Stand Step Pivot Transfer Ability Level of Assist Moderate Assistance Maximum Assistance Comments Mobility Comments pt on bedside commode with nursing. assisted pt with donning of TLSO. Son in room and c/o TLSO not fitting right and cutting on pt chin when in bed that is why pt did not have brace on this morning. Pt completed sit to stand from bedside commode mod A and cues for techniques and to maintain NWB on LUE. pt was able to maintain standing using SBQC for support max A and max cues with increase posterior trunk LOB. NAC assist pt with hygiene care. pt ambulated from bedside commode towards the bed usign SBQC ~ 5 ft mod A to max A and max cues. pt agreed to sit up on chair. set up pt's chair and transferred from bed to chair using SBQC mod A to max A and cues. Also noted SOB during mobility requiring cues for deep breathing. M5 PT-IP Objective Assessments Start: 12/16/17 16:41 Freq: NEEDED Status: Active Protocol: Document 12/20/17 15:51 LR (Rec: 12/20/17 16:13 [facility] [id number]) Orientation Orientation/Cognition Level of Alertness Confusional State Safety Awareness Decreased Safety Awareness Gross Range of Motion Upper Extremity ROM Assessment Left Impaired Strength Upper Extremity Strength Assessment Left Impaired Lower Extremity Strength Assessment Bilaterally Impaired Comments Strength Comments Generalized weakness after fall and not out of bed for 4 days M6 PT-IP Treatment Start: 12/16/17 16:41 Freq: NEEDED Status: Active Protocol: Document 12/21/17 09:15 AB (Rec: 12/21/17 10:54 AB [id number]) Physical Therapy Treatment Education Education Provided Weight Bearing Status Safety Equipment Issued Equipment Type and Company custom clamshell TLSO brace given yesterday to pt by [place] [facility]. Other Treatments Other Treatment Performed called [facility] today regarding pt's family c/o brace not fitting well. Saima stated that she will come this afternoon to look at it but also stated that it fitted perfectly yesterday. M7 PT-IP Assessment and Plan Start: 12/16/17 16:41 Freq: NEEDED Status: Active Protocol: Document 12/21/17 09:15 AB (Rec: 12/21/17 10:54 AB [id number]) PT Summary Assessment and Plan Potential Rehabilitation Potential Fair Summary Impairments Pain ROM Strength Balance Cognition Bed Mobility Transfers Gait Activity Tolerance Progress Towards Goals Slow Progress due to Pain Slow Progress due to Activity Tolerance Assessment Summary pt requiring mod to max A with mobility and max cues for safety. pt unable to tolerate much activity with (+)SOB. pt will require SNF rehab to improve strength and function. Goals Bed Mobility Goal Minimal Assistance Transfer Goal Minimal Assistance Cane Gait Goal Minimal Assistance Cane Gait Distance 35ft Days to Meet Goals 4 Frequency of Treatment Frequency Of Treatment Twice a Day Treatment Plan Physical Therapy Treatment Plan Bed Mobility Training Transfer Training Gait Training Therapeutic Exercise Balance Retraining Discharge Planning Recommendations To Nursing Amount of Assist Needed 2 Person Assist Discharge Recommendations PT Discharge Recommendations SNF Rehab
[2017-12-21] MEDS: MEMANTINE HCL 5 MG TABLET 10 MG PO (09:55)
[2017-12-21] MEDS: DOCUSATE 250 MG CAPSULE PO (09:55)
[2017-12-21] MEDS: GABAPENTIN 100 MG CAPSULE 200 MG PO (09:55)
[2017-12-21] MEDS: ENOXAPARIN 40 MG/0.4 ML SYRINGE SUBCUT (09:56)
[2017-12-21] MEDS: AMLODIPINE 2.5 MG TABLET PO (09:56)
[2017-12-21] MEDS: SODIUM CHLORIDE 0.9% FLUSH 10 ML IV ×2 (09:57→19:54)
--- NOTE | 2017-12-21 12:48 | PC.NURSE ---
Pt is confused and hallucinating this morning. He ate some breakfast and took his medication whole with water. Son in room visiting and helping him. States you have hair on your hands and he focused on this for about 5 minutes. Family states that patient was normal before coming into the hospital. That he might repeat a story or be forgful at times but nothing like he is now. He would like to talk to the dr and she has been phoned and is aware. Consult put in for Dr. Ruiz to see patient as well. Pt has purple bruising to his l.arm across chest and his back from fall and multiple rib fx, and back fx. He has been wearing his hard plastic fitted brace and is uncomfortable in it. Got medication changed from dilaudid and percocet. Jerri ordered tramaldol if needed and vicodin if tramadol not effective for discomfort. Pt is visiting with his son and family at this time. He voided and had a bowel movement this morning. Wilburn taken out prior around 0600. Pt is still confused but denies pain.
--- NOTE | 2017-12-21 13:22 | PT.IPTN ---
Current Diagnoses Unspecified fracture of T11-T12 vertebra, initial encounter for closed fracture (12/16/17) Unspecified fracture of sternum, initial encounter for closed fracture (12/16/17) Fracture of one rib, left side, initial encounter for closed fracture (12/16/17) Unspecified fracture of first lumbar vertebra, initial encounter for closed fracture (12/16/17) Fracture of unspecified part of left clavicle, initial encounter for closed fracture (12/16/17) Fracture of unspecified part of scapula, left shoulder, initial encounter for closed fracture (12/16/17) Physical Therapy Treatment Note M2 PT-IP Current Condition Start: 12/16/17 16:41 Freq: NEEDED Status: Active Protocol: Document 12/20/17 15:51 LR (Rec: 12/20/17 16:13 [facility] [id number]) Physical Therapy Current Condition Current Condition Evaluation Date 12/20/17 Treatment Diagnosis L clavicle & scapular fx, sternal fx & T11 fx. Precautions Lumbar Precautions Log Roll No Twisting Limit Bending Brace Must wear hard shell TLSO at all times Other Precautions NWB L UE Weight Bearing Status Weight Bearing Status Weight Bear as Tolerated Allowed Weight Bearing Amount (enter % LEs; NWB LUE or #) (%) M3 PT-IP Subjective Start: 12/16/17 16:41 Freq: NEEDED Status: Active Protocol: Document 12/21/17 13:22 AB (Rec: 12/21/17 16:11 AB [id number]) Subjective Physical Therapy Visit Type Type Treatment Note Visit Start Time 13:22 Visit Stop Time 13:52 Total Visit Minutes 30 Number of KEYBOARDING CLERK Visits 0 Physical Therapy Visit Comments Patient Comments pt continues to have confusion and hallucinations but able to follow one step commands Therapy Pain Assessment Pain Present Pain Present Pain Reported Location Bilateral Lateral Ribs Scale Used pain scale not stated M4 PT-IP Mobility and Gait Start: 12/16/17 16:41 Freq: NEEDED Status: Active Protocol: Document 12/21/17 13:22 AB (Rec: 12/21/17 16:11 AB [id number]) PT-Bed Mobility Assessment Sit to Supine Sit to Supine Maximum Assistance 1 Person Assistance 2 Person Assistance PT-Transfer Assessment Sit to and From Stand Sit to and from Stand Moderate Assistance Maximum Assistance 1 Person Assistance Use of Upper Extremities Equipment Transfer Assistive Device Gait Belt Small Based Quad Cane Gait Assessment Gait Distance (Feet) (feet) 10 Able to Maintain Weight Bearing Status Yes During Gait Assistive Devices Assistive Device Gait Belt Small Based Quad Cane Orthotic/Prosthetic Devices or Brace: Yes Gait Deviations General Gait Pattern Decreased Stride Length Decreased Feet Clearance Factors Limiting Gait Function Factors Limiting Gait Function Decreased Activity Tolerance Decreased Strength Difficulty Following Directions Pain Poor Balance Poor Safety Awareness Comments Gait Comments pt requires cues with all tasks and can be impulsive. M5 PT-IP Objective Assessments Start: 12/16/17 16:41 Freq: NEEDED Status: Active Protocol: Document 12/20/17 15:51 LR (Rec: 12/20/17 16:13 [facility] [id number]) Orientation Orientation/Cognition Level of Alertness Confusional State Safety Awareness Decreased Safety Awareness Gross Range of Motion Upper Extremity ROM Assessment Left Impaired Strength Upper Extremity Strength Assessment Left Impaired Lower Extremity Strength Assessment Bilaterally Impaired Comments Strength Comments Generalized weakness after fall and not out of bed for 4 days M6 PT-IP Treatment Start: 12/16/17 16:41 Freq: NEEDED Status: Active Protocol: Document 12/21/17 13:22 AB (Rec: 12/21/17 16:11 AB [id number]) Physical Therapy Treatment Education Education Provided Safety Brace Education Donning Mccune Caregiver Other Treatments Other Treatment Performed adjusted TLSO brace in bed. educated pt's son that TLSO has to be adjusted down if brace is riding up and has to be tighten. consumer insight manager also came in to adjust TLSO brace. M7 PT-IP Assessment and Plan Start: 12/16/17 16:41 Freq: NEEDED Status: Active Protocol: Document 12/21/17 13:22 AB (Rec: 12/21/17 16:11 AB [id number]) PT Summary Assessment and Plan Potential Rehabilitation Potential Fair Summary Impairments Pain ROM Strength Balance Coordination Sensation Tone Cognition Bed Mobility Transfers Gait Activity Tolerance Progress Towards Goals Slow Progress due to Medical Issues Assessment Summary pt slowly improving with mobility and ambulation but continues to not tolerate much activity. decrease cognitive level also affecting function . pt will require SNF rehab to improve mobility and independence. Goals Bed Mobility Goal Minimal Assistance Transfer Goal Minimal Assistance Cane Gait Goal Minimal Assistance Cane Gait Distance 35ft Days to Meet Goals 4 Frequency of Treatment Frequency Of Treatment Twice a Day Treatment Plan Physical Therapy Treatment Plan Bed Mobility Training Transfer Training Gait Training Therapeutic Exercise Balance Retraining Discharge Planning Recommendations To Nursing Amount of Assist Needed 2 Person Assist Discharge Recommendations PT Discharge Recommendations SNF Rehab
--- NOTE | 2017-12-21 14:23 | CM.DPC ---
Met briefly with patient and family in his room as torso brace was being fitted for the first time and Romelia in the room to assist patient with ambulation. Patient's son Ibrahima Mann is the main contact at this meeting. He is DPOA for the patient and gives his phone number as . He confirms that the family does not want patient to go the SNF in [place] as originally planned, but are decided on [facility]. DCP let him know that [place] called today and can accept patient; wanted to let him know. He states family still wants [facility]. Briefly discussed transportation with Ibrahima: this would likely be private pay. We are to get information to him when patient is closer to d/c. (NOTE: Brisa placed [employer] and [employer] [facility] information in patient DCP packet. Give this to Ibrahima/family when facility and d/c date are firm.) ( [employer] spoke with Dallin , at [place] facility this morning when they said they could accept patient. She verified with this DCP that family is wanting [facility]. We will get back with [place] if [facility] does not work out.) Contacted: [facility] was awaiting Ins approval per DCP handoff note. This DCP called and left message for Amanda at [facility] to see if they had obtained approval for patient to be d/c to their facility and if they needed further information. To please call DCP office when approval is gained. Left update in messg that patient has received clamshell brace today and is working with PT for the first time today; likely 1-2 days until discharge.
--- NOTE | 2017-12-21 14:30 | OT.IP.EVAL ---
Current Diagnoses Unspecified fracture of T11-T12 vertebra, initial encounter for closed fracture (12/16/17) Unspecified fracture of sternum, initial encounter for closed fracture (12/16/17) Fracture of one rib, left side, initial encounter for closed fracture (12/16/17) Unspecified fracture of first lumbar vertebra, initial encounter for closed fracture (12/16/17) Fracture of unspecified part of left clavicle, initial encounter for closed fracture (12/16/17) Fracture of unspecified part of scapula, left shoulder, initial encounter for closed fracture (12/16/17) Past Medical History (Last Reviewed 12/21/17 @ 15:20 by Ro Ruiz MD) Closed L1 vertebral fracture (Acute) Closed T11 fracture (Acute) Left rib fracture (Acute) Closed left scapular fracture (Acute) Closed left clavicular fracture (Acute) Sternal fracture (Acute) Fall (Acute) Arthritis (Acute) Hypertension (Acute) Memory deficit (Acute) Prostate CA (Acute) Occupational Therapy Inpatient Evaluation/Re-Eval M3 OT- IP Subjective and Pain Start: 12/21/17 15:31 Freq: Status: Active Protocol: Document 12/21/17 14:30 PJ (Rec: 12/21/17 15:34 PJM [id number]) OT- Subjective Occupational Therapy Visit Type Type Administrative Note Visit Start Time 14:30 Notes OT referral received. Attempted initial evaluation but pt just back to bed after P.T. session. RN reports pt has been confused and hallucinating today. Pain meds have been changed to Tylenol only. Son reports that pt is very sleep deprived. Pt not appropriate for OT eval at this time. Will attempt again in AM as medical status permits. No charge.
--- NOTE | 2017-12-21 15:28 | P.CONS_ITS ---
History of Present Illness Date Patient Seen: 12/21/17 Time Patient Seen: 14:45 Chief complaint: Fell Off Deck Reason for consult: I was asked by Dr. Reed t evaluate this patient for confusion and agitation Requesting provider: Judith Reed Narrative: 82-year-old man with history of dementia who was admitted to the [facility] after a fall on December 15, 2017. He fell off a deck about 4-5 feet 6 days ago. He was found to have sternal fracture, fracture of the left medial clavicle head, multiple left rib fractures with trace left hemothorax, compression fracture of T11 and nondisplaced fracture of the left scapula. He was treated conservatively. He initially received Dilaudid IV for pain control. He was subsequently switched to oral Percocet. He has been having visual hallucination since hospital admission. His confusion and agitation seemed to have gotten worse in the past few days after he was switched to Percocet. Percocet was discontinued. He is currently on Tylenol as needed for pain control. Patient denies current pain. [facility] Medical History Closed L1 vertebral fracture (Acute) Closed T11 fracture (Acute) Left rib fracture (Acute) Closed left scapular fracture (Acute) Closed left clavicular fracture (Acute) Sternal fracture (Acute) Fall (Acute) Arthritis (Acute) Hypertension (Acute) Memory deficit (Acute) Prostate CA (Acute) Family History: Reviewed 12/16/17 by Marianne Law MD Social History household members: none Smoking Status: Former smoker Comment: Social history: He is . He lived independently at his home prior to hospital admission. He has son checks on him frequently. He denies alcohol drinking or cigarette smoking. Family history: Noncontributory Meds Home Medications Medication Instructions Recorded Confirmed Type amlodipine 2.5 mg PO DAILY 12/16/17 12/16/17 History cholecalciferol (vitamin D3) 2,000 unit PO DAILY 12/16/17 12/16/17 History [Vitamin D3] donepezil 5 mg PO DAILY 12/16/17 12/16/17 History doxycycline hyclate [Targadox] 50 mg PO PRN PRN 12/16/17 12/16/17 History memantine 10 mg PO QAM 12/16/17 12/16/17 History Allergies Allergy/AdvReac Type Severity Reaction Status Date / Time No Known Drug Allergies Allergy Verified 12/15/17 20:33 Review of Systems Review of Systems Complete review of system is unable to obtain due to patient's confusion and delirium Exam Vital Signs (past 8 hours): - 12/21/17 08:00 Temperature 97.2 F L Pulse Rate 98 H Respiratory Rate 18 Blood Pressure 161/74 H Pulse Oximetry 96 Oxygen Delivery Method Room Air Oxygen Flow Rate 0 Narrative Exam Narrative: GENERAL: Well-appearing, well-nourished and in no acute distress. HEENT: Head normocephalic, atraumatic. Eyes pupils equal round NECK: Supple, no JVD, CHEST: Breath sounds equal bilaterally, DLCO brace is in place CARDIAC: Regular rate and rhythm without murmurs, rubs or gallops. ABDOMEN: Soft, nontender. Normoactive bowel sounds all 4 quadrants. No guarding or rebound. EXTREMITIES: Normal range of motion, no clubbing or edema. NEUROLOGICAL: Alert and oriented to person; he thought the year was 1973. He was not able to tell me where he was. He does know our president is Mr. Prado Normal muscle strength. SKIN: Warm, dry, no petechiae, no rashes or lesions. Objective Imaging CT scan - head: Radiologist's impression: 1. No acute intracranial abnormalities. 2. Cerebral volume loss and chronic microvascular ischemic changes. Labs Result Diagrams: 12/21/17 05:40 12/21/17 05:40 Labs: Laboratory Results - last 24 hr 12/21/17 12/21/17 05:40 05:40 WBC 10.8 RBC 3.95 L Hgb 11.5 L Hct 33.7 L MCV 85.3 MCH 29.2 MCHC 34.3 RDW 13.5 Plt Count 169 Neut % (Auto) 73.6 Lymph % (Auto) 14.2 L [place] % (Auto) 10.4 Eos % (Auto) 1.4 L Baso % (Auto) 0.4 Neut # (Auto) 8000 H Sodium 138 Potassium 2.9 L Chloride 102 Carbon Dioxide 30 BUN 20 Creatinine 0.60 L Estimated GFR > 60.0 BUN/Creatinine Ratio 33.3 H Glucose 112 H Calcium 8.1 L Assessment & Plan Plan: Assessment/Plan Narrative: 1. Metabolic encephalopathy with underlying dementia: His chemistry panel showed low potassium of 2.9. We will give him IV K rider and also oral potassium. Continue monitor his electrolytes. We will check his UA to rule out urinary tract infection. Remove Wilburn catheter as soon as he is able to use a urinal. We will start him on Seroquel 25 mg at 8:00 p.m. for treating sundown syndrome. Avoid narcotics or benzodiazepine if possible. 2. Recent fall with fracture of sternum, left clavicle, left-sided ribs, T11 compression fracture. He is followed by Orthopedics and General surgery. Continue Tylenol as needed for pain control. Continue PT OT. 3. Hypertension: His blood pressure is not adequately controlled. We will increase amlodipine from 2.5 mg once a day to 5 mg once a day. Continue monitor his blood pressure readings.
[2017-12-21 15:35] VITALS: BP 129/97; PULSE 91; RESP 18; TEMP 36.8; O2SAT 96
[2017-12-21] MEDS: POTASSIUM CHLORIDE 20 MEQ TAB 40 MEQ PO (16:34)
[2017-12-21] MEDS: POTASSIUM CHLORIDE 40 MEQ in SODIUM CHLORIDE 0.9% 500 ML 130 ML IV (16:36)
[2017-12-21] MEDS: DONEPEZIL 5 MG TABLET PO (19:47)
[2017-12-21] MEDS: QUETIAPINE 25 MG TABLET PO (19:47)
[2017-12-21 19:50] VITALS: BP 149/80; PULSE 93; RESP 18; TEMP 36.8; O2SAT 96
[2017-12-22] VITALS (7 sets, daily range): BP systolic 136–151; BP diastolic 62–84; PULSE 48–90; RESP 16–18; TEMP 36.1–36.6; O2SAT 95–98
--- NOTE | 2017-12-22 03:03 | PC.NURSE ---
Pt had a liquid bowel movement. Pt accidently peed on floor instead of in toilet so unable to obtain a UA at this point. Will try to obtain next urine sample
[2017-12-22] MEDS: ACETAMINOPHEN 325 MG TABLET 650 MG PO ×2 (06:06→10:07)
--- NOTE | 2017-12-22 08:54 | PM.PN.1 ---
Subjective Date Patient Seen: 12/22/17 Time Patient Seen: 08:54 Interval history: Hospital day 7. Patient history of fracture of sternum, left clavicle, left-sided ribs, T11 compression fracture. He has a clamshell brace for the compression fracture. Yesterday he started to have hallucinations. Hospitalist was consulted and pain medication was d/c except tylenol. His daughter is present at bedside. She states that they found a SNF in [place] for the patient to be transferred to when medically stable. Patient has a history of dementia. Exam Vital Signs (past 8 hours): - 12/22/17 04:06 12/22/17 07:51 Temperature 97.9 F 97.8 F Pulse Rate 90 75 Respiratory Rate 16 18 Blood Pressure 151/83 H 143/84 H Pulse Oximetry 95 98 Oxygen Delivery Method Room Air Oxygen Flow Rate 0 Narrative Exam Narrative: Patient in bed. Awake. Can answer some questions. Ecchymosis over proximal clavicle. Skin intact. Ecchymosis over left scapula and upper trapezius. 5/5 BUE strength with NV status intact. 5/5 BLE with NV status intact. Objective Labs Result Diagrams: 12/21/17 05:40 12/21/17 05:40 Assessment & Plan Plan: Assessment/Plan Narrative: Continue physical therapy. Continue back brace for T11 compression fracture. DC to alf facility when medically stable. Quality VTE Deep Vein Thrombosis/Pulmonary Embolism Present on Admission: No
--- NOTE | 2017-12-22 09:00 | PT.IPTN ---
Current Diagnoses Unspecified fracture of T11-T12 vertebra, initial encounter for closed fracture (12/16/17) Unspecified fracture of sternum, initial encounter for closed fracture (12/16/17) Fracture of one rib, left side, initial encounter for closed fracture (12/16/17) Unspecified fracture of first lumbar vertebra, initial encounter for closed fracture (12/16/17) Fracture of unspecified part of left clavicle, initial encounter for closed fracture (12/16/17) Fracture of unspecified part of scapula, left shoulder, initial encounter for closed fracture (12/16/17) Physical Therapy Treatment Note M2 PT-IP Current Condition Start: 12/16/17 16:41 Freq: NEEDED Status: Active Protocol: Document 12/20/17 15:51 LR (Rec: 12/20/17 16:13 [facility] [email or web address]) Physical Therapy Current Condition Current Condition Evaluation Date 12/20/17 Treatment Diagnosis L clavicle & scapular fx, sternal fx & T11 fx. Precautions Lumbar Precautions Log Roll No Twisting Limit Bending Brace Must wear hard shell TLSO at all times Other Precautions NWB L UE Weight Bearing Status Weight Bearing Status Weight Bear as Tolerated Allowed Weight Bearing Amount (enter % LEs; NWB LUE or #) (%) M3 PT-IP Subjective Start: 12/16/17 16:41 Freq: NEEDED Status: Active Protocol: Document 12/22/17 09:00 AB (Rec: 12/22/17 11:41 AB [email or web address]) Subjective Physical Therapy Visit Type Type Treatment Note Visit Start Time 09:00 Visit Stop Time 09:23 Total Visit Minutes 23 Number of DOPE MIXER Visits 0 Physical Therapy Visit Comments Patient Comments pt agreeable to sit up on chair M4 PT-IP Mobility and Gait Start: 12/16/17 16:41 Freq: NEEDED Status: Active Protocol: Document 12/22/17 09:00 AB (Rec: 12/22/17 11:41 AB [email or web address]) PT-Bed Mobility Assessment Rolling Type of Rolling Log Rolling Level of Assist Maximal Assistance 1 Person Assistance Supine to Sit Supine to Sit Moderate Assistance 1 Person Assistance PT-Transfer Assessment Sit to and From Stand Sit to and from Stand Moderate Assistance 1 Person Assistance Use of Upper Extremities Gait Assessment Gait Gait Assistance Required: Moderate Assistance Distance (Feet) (feet) 12 Able to Maintain Weight Bearing Status Yes During Gait Assistive Devices Assistive Device Gait Belt Small Based Quad Cane Orthotic/Prosthetic Devices or Brace: Yes Gait Deviations General Gait Pattern Decreased Stride Length Decreased Feet Clearance Factors Limiting Gait Function Factors Limiting Gait Function Decreased Activity Tolerance Decreased Strength Difficulty Following Directions Limited Range of Motion Pain Poor Balance Poor Safety Awareness M5 PT-IP Objective Assessments Start: 12/16/17 16:41 Freq: NEEDED Status: Active Protocol: Document 12/20/17 15:51 LR (Rec: 12/20/17 16:13 LR [email or web address]) Orientation Orientation/Cognition Level of Alertness Confusional State Safety Awareness Decreased Safety Awareness Gross Range of Motion Upper Extremity ROM Assessment Left Impaired Strength Upper Extremity Strength Assessment Left Impaired Lower Extremity Strength Assessment Bilaterally Impaired Comments Strength Comments Generalized weakness after fall and not out of bed for 4 days M6 PT-IP Treatment Start: 12/16/17 16:41 Freq: NEEDED Status: Active Protocol: Document 12/22/17 09:00 AB (Rec: 12/22/17 11:41 AB [email or web address]) Physical Therapy Treatment Education Education Provided Weight Bearing Status Safety Equipment Issued Equipment Type and Company pt has clamshell TLSO brace on M7 PT-IP Assessment and Plan Start: 12/16/17 16:41 Freq: NEEDED Status: Active Protocol: Document 12/22/17 09:00 AB (Rec: 12/22/17 11:41 AB [email or web address]) PT Summary Assessment and Plan Potential Rehabilitation Potential Fair Summary Impairments Pain ROM Strength Balance Coordination Cognition Bed Mobility Transfers Gait Activity Tolerance Progress Towards Goals Slow Progress due to Pain Slow Progress due to Medical Issues Assessment Summary pt slowly progressing but continues to have some confusion and has decrease activity tolerance with (+) SOB after ambulation but O2 sat at 92%. pt will require SNF rehab to improve mobility and function. Goals Bed Mobility Goal Minimal Assistance Transfer Goal Minimal Assistance Cane Gait Goal Minimal Assistance Cane Gait Distance 35ft Days to Meet Goals 4 Frequency of Treatment Frequency Of Treatment Twice a Day Treatment Plan Physical Therapy Treatment Plan Bed Mobility Training Transfer Training Gait Training Therapeutic Exercise Balance Retraining Discharge Planning Recommendations To Nursing Amount of Assist Needed 2 Person Assist Discharge Recommendations PT Discharge Recommendations SNF Rehab
--- NOTE | 2017-12-22 09:01 | P.PN_ITS ---
Subjective Date Patient Seen: 12/22/17 Time Patient Seen: 08:54 Interval history: Hospital day 7. Patient history of fracture of sternum, left clavicle, left-sided ribs, T11 compression fracture. He has a clamshell brace for the compression fracture. Yesterday he started to have hallucinations. Hospitalist was consulted and pain medication was d/c except tylenol. His daughter is present at bedside. She states that they found a SNF in [place] for the patient to be transferred to when medically stable. Patient has a history of dementia. Exam Vital Signs (past 8 hours): - 12/22/17 04:06 12/22/17 07:51 Temperature 97.9 F 97.8 F Pulse Rate 90 75 Respiratory Rate 16 18 Blood Pressure 151/83 H 143/84 H Pulse Oximetry 95 98 Oxygen Delivery Method Room Air Oxygen Flow Rate 0 Narrative Exam Narrative: Patient in bed. Awake. Can answer some questions. Ecchymosis over proximal clavicle. Skin intact. Ecchymosis over left scapula and upper trapezius. 5/5 BUE strength with NV status intact. 5/5 BLE with NV status intact. Objective Labs Result Diagrams: 12/21/17 05:40 12/21/17 05:40 Assessment & Plan Plan: Assessment/Plan Narrative: Continue physical therapy. Continue back brace for T11 compression fracture. DC to shelter facility when medically stable. Quality VTE Deep Vein Thrombosis/Pulmonary Embolism Present on Admission: No
[2017-12-22 09:40] LABS: Carbon Dioxide 27 mmol/L (22-32); Chloride 105 mmol/L (98-107); HEMOLYSIS < 15 (0-50); Potassium 3.2 mmol/L (3.4-5.1); Sodium 139 mmol/L (137-145)
--- NOTE | 2017-12-22 09:40 | OT.IP.EVAL ---
Current Diagnoses Unspecified fracture of T11-T12 vertebra, initial encounter for closed fracture (12/16/17) Unspecified fracture of sternum, initial encounter for closed fracture (12/16/17) Fracture of one rib, left side, initial encounter for closed fracture (12/16/17) Unspecified fracture of first lumbar vertebra, initial encounter for closed fracture (12/16/17) Fracture of unspecified part of left clavicle, initial encounter for closed fracture (12/16/17) Fracture of unspecified part of scapula, left shoulder, initial encounter for closed fracture (12/16/17) Past Medical History (Last Reviewed 12/21/17 @ 15:20 by Ro Ruiz MD) Closed L1 vertebral fracture (Acute) Closed T11 fracture (Acute) Left rib fracture (Acute) Closed left scapular fracture (Acute) Closed left clavicular fracture (Acute) Sternal fracture (Acute) Fall (Acute) Arthritis (Acute) Hypertension (Acute) Memory deficit (Acute) Prostate CA (Acute) Occupational Therapy Inpatient Evaluation/Re-Eval M1 PT/OT-IP Prior Functional Status Start: 12/16/17 16:41 Freq: NEEDED Status: Active Protocol: Document 12/22/17 17:37 PJM (Rec: 12/22/17 17:59 PJM [id number]) Medical Review Prior Functional Status Medical History Reviewed Yes Diet/Fluid Consistency Regular Communication WFL, but with confusion noted at times Mobility and Gait Amb without AD. Indep with ADLs and takes care of 1 acre yard Activities of Daily Living and IADL's Pt was independent with self care, IADLS including driving prior to admit. Prior Functional Level (Other details) Family checked on pt weekly. Pt no longer dries on freeway. Pt very active and cuts wood for wood stove use and likes to work outside in garden. Social History Household Members none Living Arrangements House Number of Floors (Floors) One Floor Number of Stairs To Enter/Railing? 2 LEIF w/rail Home Environment Standard Height Toilet Tub/Shower Employment Status Retired Additional Social History Comment No DME at home M2 OT-IP Current Condition Start: 12/21/17 15:31 Freq: Status: Active Protocol: Document 12/22/17 17:37 PJM (Rec: 12/22/17 17:59 PJM [email or web address]) Occupational Therapy Current Condition Current Condition Evaluation Date 12/22/17 Treatment Diagnosis decreased self care/mobility due to multiple fx's Diagnosis Onset Date 12/17/17 Post Operative Precautions Lumbar Precautions Log Roll No Twisting Limit Bending Lifting Restriction of 10 lbs Other Precautions NWB L UE, TLSO clamshell brace on at all times Weight Bearing Status Weight Bearing Status Weight Bear as Tolerated Allowed Weight Bearing Amount (enter % LEs; NWB LUE due to clavicle or #) (%) fx and scapular fx M3 OT- IP Subjective and Pain Start: 12/21/17 15:31 Freq: Status: Active Protocol: Document 12/22/17 17:37 PJM (Rec: 12/22/17 17:59 PJM [id number]) OT- Subjective Occupational Therapy Visit Type Type Initial Evaluation Visit Start Time 08:45 Visit Stop Time 09:40 Total Visit Minutes 55 Notes Pt's daughter her observing this session Occupational Therapy Visit Comments Patient Comments I miss my dog. Patient/Caregiver Goals to get stronger and be able to go home after rehab and to see his dog OT Pain Assessment Pain When Pain Assessed After Treatment Pain Present Pain Present Pain Reported Location Left Upper Medial Arm Scale Used pt unable to rate on 10 pt scale due to confusion; denies pain at rest in bed M4 OT- IP ADL's Start: 12/21/17 15:31 Freq: Status: Active Protocol: Document 12/22/17 17:37 PJM (Rec: 12/22/17 17:59 PJM [id number]) OT [id number] General Evaluation Self-Feeding Ability Standby Assistance Areas Needing Assistance Cutting Food Opening Containers Comments OT Self-Feeding Comments pt needs set up and intermittent supervision due to confusion OT ADL-Grooming General Evaluation Grooming Ability Standby Assistance Areas Needing Assistance Retrieving/Set-up of Grooming Items Face Washing Glasses Shaving Comments OT Grooming Comments Pt performs slowly but with good thoroughness. OT ADL-Oral Care General Eval Oral Care Ability Minimal Assistance Comments Oral Care Comments Needs set up and mod verbal cues to problem solve sequence of task in unfamiliar setting . OT ADL-Dressing General Eval Upper Body Dressing Ability Minimal Assistance Lower Body Dressing Ability Maximum Assistance Areas Needing Assistance Underpants/Brief Comments OT Dressing Comments min assist with gown today OT ADL-Toileting General Evaluation Toileting Ability Minimal Assistance Devices Toileting Assistive Devices Urinal OT ADL-Bathing Bathing Type Bathing Type Sponge Bath General Evaluation Bathing Ability Maximal Assistance M5 OT- IP IADL's Start: 12/21/17 15:31 Freq: Status: Active Protocol: Document 12/22/17 17:37 PJM (Rec: 12/22/17 17:59 [facility] [id number]) OT-Instrumental Activities of Daily Living Deficits IADL Deficits Identified Deficits Home Safety Awareness Awareness of Need for Assistance at Home Decreased Awareness Ability to Problem Solve Emergency Unable to Problem Solve Situations Home Safety Comments confusion interferes with safety awareness at present Medication Management Medication Management Caregiver Administers Medication Management Comments pt confused at present, pt indep with meds prior to admit Money Management Money Management Caregiver Provides Assistance Money Management Comments pt indep prior to admit, daughter assisting at present Meal Preparation Meal Preparation Caregiver Provides Assist Meal Preparation Comments pt indep with meal prep prior to admit Service Associate Service Associate Caregiver Provides Assist Service Associate Comments pt indep prior to admit Driving Driving Caregiver Provides Assist Driving [place] prior to admit M6 OT- IP Functional Cognition Start: 12/21/17 15:31 Freq: Status: Active Protocol: Document 12/22/17 17:37 PJM (Rec: 12/22/17 17:59 [facility] [id number]) Cognitive Factors Limiting Selfcare Function Cognitive Ability Level of Alertness Confusional State Patient Orientation Name Age Birthday Year Attention Span Ability Capable of Focused Attention Ability to Follow Commands Able to Follow One Step Commands with Increased Time Memory Description Immediate Impaired Short Term Impaired Safety Awareness Decreased Recall of Precautions Decreased Ability to Apply Precautions Underestimates Need for Assistance Problem Solving Ability Unable to Identify Errors Needs Assist to Identify Solutions Executive Function Ability Unable to Filter Distractions Unable to Organize Plans Unable to Remember Details Abstract Thinking Ability Unable to Draw Logical Conclusions Cognitive Comments Cognitive Assessment Comments Pt's orientation improving per daughter, but conversation still confused at times and pt far below baseline level of cognitive function, as he lived independently and was driving. OT- Vision and Hearing OT- Hearing Assessment OT- Hearing Assessment Hearing Impaired Use of Hearing Aids OT- Vision Assessment Visual Acuity Glasses All The Time Vision Assessment Comments Pt can see clock, but confused about hand placement to tell correct time. M7 OT- IP Mobility and Balance Start: 12/21/17 15:31 Freq: Status: Active Protocol: Document 12/22/17 17:37 PJM (Rec: 12/22/17 17:59 PJ [id number]) OT- Bed Mobility Assessment Rolling Type of Rolling Log Rolling Roll to Right Level of Assistance Minimal Assistance 1 Person Assistance Supine to Sit Supine to Sit Assist Moderate Assistance 1 Person Assistance Scooting Scooting to Edge of Bed Minimal Assistance OT-Transfer Assessment Sit to and From Stand Sit to and from Stand Minimal Assistance Transfers Transfer Ability Minimal Assistance Technique Transfer Destination Chair Transfer Technique Stand Step Pivot Devices Transfer Assistive Devices Small Based Quad Cane Orthotic/Prosthetic Devices or Brace: Yes Comments Mobility Comments TLSO clamshell brace on at all times OT- Gait Assessment Gait Gait Assistance Required: Minimum Assistance Distance (Feet) (feet) 15 Assistive Devices Assistive Device Small Based Quad Cane Orthotic/Prosthetic Devices or Brace: Yes Comments Gait Ability Comments TLSO on at all times, pt unsteady, especially on turns OT- Balance Assessment Sitting Balance and Reactions Static Sitting Balance Ability Fair Dynamic Sitting Balance Ability Poor Standing Balance and Reactions Static Standing Balance Ability Fair Dynamic Standing Balance Ability Poor M8 OT- IP Objective Assessments Start: 12/21/17 15:31 Freq: Status: Active Protocol: Document 12/22/17 17:37 PJM (Rec: 12/22/17 17:59 PJ [id number]) OT Gross Range of Motion Upper Extremity Range of Motion Assessment Left Impaired ROM Impairments RUE WFL LUE spontaneous AROM in L shoulder to 70 degrees scaption with min c/o pain. Distal AROM WFL OT Strength Upper Extremity Strength Assessment Left Impaired Shoulder 3-/5 Elbow 3/5 Forearm 3/5 Wrist 3/5 Hand 3+/5 Hand [employer] Developer Strength Hand Dominance Right Comments Strength Comments No resistance applied to LUE due to clavicle and scapualr fx's. RUE 5/5 throughout. OT- Coordination Assessment Comments Coordination Comments RUE WFL LUE limited by proximal pain and difficulty placing arm in space for functional tasks. OT-Muscle Tone Assessment Muscle Tone WNL Yes OT Sensation Assessment Comments Summary Comments Lt touch WFL in BUE M9 OT- IP Assessment and Plan Start: 12/21/17 15:31 Freq: Status: Active Protocol: Document 12/22/17 17:37 PJM (Rec: 12/22/17 17:59 PJ [id number]) OT Summary Assessment and Plan Potential Rehabilitation Potential Good Analytic Complexity at Evaluation Moderate Summary OT Impairments Pain Range of Motion Strength Balance Functional Cognition Functional Mobility Grooming Dressing Toileting Bathing Toilet Transfers Shower Transfers Assessment Summary Moderate complexity OT assessment due polytrauma with multiple fx' s requiring modification of mobility techniques to adhere to precautions. Pt has performance deficits in functional cognition, LUE ROM, strength and functional use and decreased independence in all self care, functional mobility and transfers at present. Pt far below his baseline of living alone and driving. Recommend SNF at d/c for further subacute rehab. Pt pleasant and cooperative, despite intermittent confusion with good effort and participation. Goals Self-Feeding Goal Independent Grooming Goal Standby Assistance Dressing Goal Minimal Assistance Toileting Goal Moderate Assistance Bathing Goal Moderate Assistance Toilet Transfer Goal Contact Guard Assistance Shower Transfer Goal Minimal Assistance Patient/Caregiver Education Goal Demonstrate Post-Op Precautions Demonstrate Energy Conservation and Pacing OT-Other Goals Pt to be oriented x4 using environmental cues and 100% accurate telling time on clock . Days to Meet Goals 7 Frequency of Treatment Frequency Of Treatment Once a Day Treatment Plan OT Treatment Plan ADL Training Functional Cognition Training Functional Mobility Patient/Family Education Discharge Planning Discharge Recommendations OT Discharge Recommendations SNF Rehab Home Equipment Needs to be determined in next rehab setting
[2017-12-22 09:59] LABS: WBC Urine None Seen (0-5/HPF)
[2017-12-22 10:05] LABS: Appearance Urine UA CLEAR; Bilirubin Urine UA NEGATIVE (NEGATIVE); Color Urine UA YELLOW; Glucose Urine UA NEGATIVE (Normal); Ketones Urine UA TRACE (NEGATIVE); Leukocyte Esterase Urine UA NEGATIVE (NEGATIVE); Nitrite Urine UA Negative (Negative); Occult Blood Urine UA TRACE-INTACT (Negative); Protein Urine UA NEGATIVE (Negative); Specific Gravity Urine UA 1.015 (1.000-1.035)
[2017-12-22] MEDS: ENOXAPARIN 40 MG/0.4 ML SYRINGE SUBCUT (10:06)
[2017-12-22] MEDS: AMLODIPINE 5 MG TABLET PO (10:07)
[2017-12-22] MEDS: SODIUM CHLORIDE 0.9% FLUSH 10 ML IV ×2 (10:08→20:16)
[2017-12-22] MEDS: MEMANTINE HCL 5 MG TABLET 10 MG PO (10:08)
[2017-12-22] MEDS: DOCUSATE 250 MG CAPSULE PO (10:08)
[2017-12-22 10:10] LABS: Amorphous Sediment Urine 1+; Bacteria Urine Moderate (10-30); Culture Indicated Urine Specimen Cultured; Mucus Urine 2+ (Negative); RBC Urine 1-5/HPF (0-5/HPF)
--- NOTE | 2017-12-22 10:16 | PM.PN.1 ---
Subjective Date Patient Seen: 12/22/17 Time Patient Seen: 08:16 Interval history: Pleasant 82-year-old male in no acute distress sitting up in bed having breakfast with his daughter at the bedside. Confused as to place and time. Nightshift said he was hallucinating as he was trying to grab things out of the air. His daughter who was at the bedside said he had more restful night. Exam Vital Signs (past 8 hours): - 12/22/17 04:06 12/22/17 07:51 Temperature 97.9 F 97.8 F Pulse Rate 90 75 Respiratory Rate 16 18 Blood Pressure 151/83 H 143/84 H Pulse Oximetry 95 98 Oxygen Delivery Method Room Air Oxygen Flow Rate 0 Const General: cooperative, healthy appearing, comfortable, well developed and well groomed Nutritional Appearance: overweight Orientation: alert and awake Other: Oriented only to person. [facility] Head: normal to inspection, normocephalic and atraumatic Ears: hearing grossly normal bilaterally Nose: external nose normal Face and sinus: normal facial exam Mouth: oral mucosae normal Throat: posterior oropharynx normal Eyes General: appearance normal, both eyes and all related structures Alignment and Position: alignment normal Pupils: PERRL and pupil size (2.0) bilaterally EOM: EOM intact bilaterally Neck Neck: normal visual inspection, trachea midline and supple Other: No JVD or lymphadenopathy, no masses or swelling. Chest Other: Localized rib tenderness over the left thorax, in addition to left clavicular area Resp Effort & Inspection: normal respiratory effort and able to speak in complete sentences Auscultation: clear to auscultation bilaterally Cardio Rate: regular rate Rhythm: abnormal rhythm (Irregular rhythm) GI Inspection: normal to inspection Palpation: soft Auscultation: normal bowel sounds Other: Nontender to palpation, no masses appreciated. Other: Unremarkable Skin General: dry skin and warm Other: Multiple large ecchymotic patches noted over right shoulder and arm and left shoulder and arm. Neuro General: alert, awake and oriented (Person. He did not know he was in the hospital, thought it was Halloween, and is not able to recall short-term events.) Motor: muscle tone normal throughout Sensory Exam: no sensory deficits noted Extrem General: normal to inspection, capillary refill normal, no pedal edema and no calf tenderness Psych Appearance: grossly normal Speech and Movement: speech and movement normal Mood: congruent mood Affect: normal affect Attitude: cooperative Objective Labs Result Diagrams: 12/21/17 05:40 12/22/17 08:40 Labs: Laboratory Results - last 24 hr 12/22/17 12/22/17 07:25 08:40 Sodium 139 Potassium 3.2 L Chloride 105 Carbon Dioxide 27 Urine Color Yellow Urine Appearance Clear Urine pH 7.0 Ur Specific [place] 1.015 Urine Protein Negative Urine Glucose (UA) Negative Urine Ketones Trace H Urine Occult Blood Trace-intact Urine Nitrate Negative Urine Bilirubin Negative Urine Urobilinogen 1.0 Ur Leukocyte Esterase Negative Urine RBC 1-5/hpf Urine WBC None seen Amorphous Sediment 1+ Urine Bacteria Moderate (10-30) H Urine Mucus 2+ H Ur Culture Indicated? Specimen cultured Micro UA Comment Not Reportable Assessment & Plan Plan: Assessment/Plan Narrative: 1. Metabolic encephalopathy with underlying dementia: He continues to display signs of underlying dementia with hallucinations. He is awake and alert but not oriented to place or time. He has excellent recall of distant memories but his short-term memory is impaired. His chemistry panel showed low potassium of 3.3. I will place him on oral potassium supplements b.i.d. at this point time. Continue monitor his electrolytes. His UA reveals what is most likely an asymptomatic bacteria, but due to his dementia and mental status change it is hard to assess so we will place him on ciprofloxacin 500 mg b.i.d.. OT has also been consulted to perform a mini mental status evaluation on him. We will start him on Seroquel 25 mg at 8:00 p.m. for treating sundown syndrome. Avoid narcotics or benzodiazepine if possible. 2. Recent fall with fracture of sternum, left clavicle, left-sided ribs, T11 compression fracture. He is followed by Orthopedics and General surgery. Continue Tylenol as needed for pain control. Continue PT OT. 3. Hypertension: We increased his Norvasc to 5 mg daily. His blood pressure is still not adequately controlled. Continue monitor his blood pressure readings. His pulse was also slightly irregular today so I have ordered a 12 lead electrocardiogram. Quality VTE Deep Vein Thrombosis/Pulmonary Embolism Present on Admission: No
--- NOTE | 2017-12-22 12:27 | CM.DPC ---
DCP Cont: Per BIGG, pt likely not medically stable for SNF yet today, possibly tomorrow. Per Amanda, admissions at [facility], they can accept the pt at d/c and requesting discharge no later than noon due to the drive time. SW met bedside with pt, who is still confused with some delirium, and Dtr and explained role and updated on acceptance at [facility] and they are appreciative and still their preference. SW discussed again the possible options of w/c van vs BLS stretcher and per OT currently feel that stretcher would be a safer transport option due to the brace the pt has to wear and his confusion. Dtr requesting SW support with getting estimate of BLS vs w/c van and states that family member would ride along on either transport. [facility] kindly called multiple w/c van and BLS transport companies and received estimate of out of pocket expense. SW provided Dtr with [facility] $266 for transport and confirmed that family member can ride along. [facility] $[phone] and family can ride along. Dtr will discuss options with family members and wait to see how pt's confusion is at time of discharge and Dtr acknowledges the potential out of pocket expense for transport. Plan: SW to follow closely for possible d/c to [facility] tomorrow if medically stable and set up transport for [facility] vs Stretcher BLS pending pt's confusion. BLAYNE Garcia
--- NOTE | 2017-12-22 14:10 | PC.NURSE ---
Assess- pt is a&ox1, he is still having hallucinations. Seems to be feeling a bit better pain schwartz. Giving po tylenol for pain. This has been helpful for patient. He is wearing his brace but this becomes uncomfortable around his neck and under his arms. Wash cloth placed under chin and neck to provide brace from scratching pts chin. Pt voided 350cc this am. Worked with pt and ot. Pt is transfering better today and is a 1 person assist to stand and void. He refused lunch but at 50% at breakfast and drank 150cc. Took po medication without difficulty. Pt has been a bit grumpy today but has been compliant. L.side of chest and back with large purple bruising. He also has bruising on both arms. Family in room and pt is comfortable at this time.
--- NOTE | 2017-12-22 14:22 | PT.IPTN ---
Current Diagnoses Unspecified fracture of T11-T12 vertebra, initial encounter for closed fracture (12/16/17) Unspecified fracture of sternum, initial encounter for closed fracture (12/16/17) Fracture of one rib, left side, initial encounter for closed fracture (12/16/17) Unspecified fracture of first lumbar vertebra, initial encounter for closed fracture (12/16/17) Fracture of unspecified part of left clavicle, initial encounter for closed fracture (12/16/17) Fracture of unspecified part of scapula, left shoulder, initial encounter for closed fracture (12/16/17) Physical Therapy Treatment Note M2 PT-IP Current Condition Start: 12/16/17 16:41 Freq: NEEDED Status: Active Protocol: Document 12/20/17 15:51 LR (Rec: 12/20/17 16:13 [facility] [id number]) Physical Therapy Current Condition Current Condition Evaluation Date 12/20/17 Treatment Diagnosis L clavicle & scapular fx, sternal fx & T11 fx. Precautions Lumbar Precautions Log Roll No Twisting Limit Bending Brace Must wear hard shell TLSO at all times Other Precautions NWB L UE Weight Bearing Status Weight Bearing Status Weight Bear as Tolerated Allowed Weight Bearing Amount (enter % LEs; NWB LUE or #) (%) M3 PT-IP Subjective Start: 12/16/17 16:41 Freq: NEEDED Status: Active Protocol: Document 12/22/17 14:22 AB (Rec: 12/22/17 17:11 AB [id number]) Subjective Physical Therapy Visit Type Type Treatment Note Visit Start Time 14:22 Visit Stop Time 14:57 Total Visit Minutes 35 Therapy Pain Assessment Pain When Pain Assessed At Rest Pain Present Pain Present Pain Reported Location Left Upper Medial Arm Scale Used pain scale not stated; stated TLSO brace pinching Description Pinching Pain Behaviors Holding Area Pain Management Techniques Re-positioning M4 PT-IP Mobility and Gait Start: 12/16/17 16:41 Freq: NEEDED Status: Active Protocol: Document 12/22/17 14:22 AB (Rec: 12/22/17 17:11 AB [id number]) PT-Bed Mobility Assessment Sit to Supine Sit to Supine Maximum Assistance 2 Person Assistance Bedrails Scooting Scooting Up and Down in Bed Maximum Assistance PT-Transfer Assessment Sit to and From Stand Sit to and from Stand Moderate Assistance 1 Person Assistance Equipment Transfer Assistive Device Gait Belt Small Based Quad Cane Gait Assessment Gait Gait Assistance Required: Moderate Assistance Distance (Feet) (feet) 10 Able to Maintain Weight Bearing Status Yes During Gait Assistive Devices Assistive Device Gait Belt Small Based Quad Cane Orthotic/Prosthetic Devices or Brace: Yes Gait Deviations General Gait Pattern Decreased Stride Length Decreased Feet Clearance Factors Limiting Gait Function Factors Limiting Gait Function Decreased Activity Tolerance Decreased Strength Difficulty Following Directions Pain Poor Balance Poor Safety Awareness Comments Gait Comments pt requires max cues with all tasks M5 PT-IP Objective Assessments Start: 12/16/17 16:41 Freq: NEEDED Status: Active Protocol: Document 12/20/17 15:51 LRH (Rec: 12/20/17 16:13 LR [id number]) Orientation Orientation/Cognition Level of Alertness Confusional State Safety Awareness Decreased Safety Awareness Gross Range of Motion Upper Extremity ROM Assessment Left Impaired Strength Upper Extremity Strength Assessment Left Impaired Lower Extremity Strength Assessment Bilaterally Impaired Comments Strength Comments Generalized weakness after fall and not out of bed for 4 days M6 PT-IP Treatment Start: 12/16/17 16:41 Freq: NEEDED Status: Active Protocol: Document 12/22/17 14:22 AB (Rec: 12/22/17 17:11 AB [id number]) Physical Therapy Treatment Education Education Provided Precautions Weight Bearing Status Safety Other Treatments Other Treatment Performed assisted pt with TLSO management and adjustment. daughter complaining that TLSO brace is not the right fit for pt. explained to family that TLSO tends to ride up and needs to be readjusted and pt is also restless making TLSO move up more. adjusted the brace for pt and pt now comfortable. skin assessment conducted and with red spots under R upper medial arm near armpit area. nurse informed and nurse put leifyn. called Saima from [email or web address] to ask if modifications can be made on TLSO brace as pt is starting to have redness due to brace riding up and pt is unable to be steady so brace will not ride up on pt. Saima stated that she can come in tomorrow at 10 am to trim brace. informed family. M7 PT-IP Assessment and Plan Start: 12/16/17 16:41 Freq: NEEDED Status: Active Protocol: Document 12/22/17 14:22 AB (Rec: 12/22/17 17:11 AB [id number]) PT Summary Assessment and Plan Potential Rehabilitation Potential Fair Summary Impairments Pain ROM Strength Balance Coordination Sensation Tone Cognition Bed Mobility Transfers Gait Activity Tolerance Progress Towards Goals Slow Progress due to Medical Issues Assessment Summary pt continues to have confusion and decrease safety awareness . pt requires 1-2 person assist with mobility and max cues. pt will require SNF rehab to improve mobility. Goals Bed Mobility Goal Minimal Assistance Transfer Goal Minimal Assistance Cane Gait Goal Minimal Assistance Cane Gait Distance 35ft Days to Meet Goals 4 Frequency of Treatment Frequency Of Treatment Twice a Day Treatment Plan Physical Therapy Treatment Plan Bed Mobility Training Transfer Training Gait Training Therapeutic Exercise Balance Retraining Discharge Planning Recommendations To Nursing Amount of Assist Needed 2 Person Assist Discharge Recommendations PT Discharge Recommendations SNF Rehab
[2017-12-22] MEDS: POTASSIUM CHLORIDE 20 MEQ TAB 40 MEQ PO ×2 (14:48→18:01)
--- NOTE | 2017-12-22 18:03 | PM.PN.1 ---
Subjective Date Patient Seen: 12/21/17 Time Patient Seen: 09:49 Interval history: Very confused today. Afebrile. Hallucinating. Only getting Tylenol for pain control. Appreciate Dr. Ruiz's input. Exam Vital Signs (past 8 hours): - 12/22/17 12:32 12/22/17 15:15 Temperature 98 F 97.0 F L Pulse Rate 81 Respiratory Rate 18 17 Blood Pressure 140/78 H 136/69 H Pulse Oximetry 97 96 Oxygen Delivery Method Room Air Oxygen Flow Rate 0 Narrative Exam Narrative: Pleasant but confused gentleman. He denies pain Lungs: Still decreased on the left side. No crepitance. Bruising still evolving. Objective Labs Result Diagrams: 12/21/17 05:40 12/22/17 08:40 Labs: Laboratory Results - last 24 hr 12/22/17 12/22/17 07:25 08:40 Sodium 139 Potassium 3.2 L Chloride 105 Carbon Dioxide 27 Urine Color Yellow Urine Appearance Clear Urine pH 7.0 Ur Specific [place] 1.015 Urine Protein Negative Urine Glucose (UA) Negative Urine Ketones Trace H Urine Occult Blood Trace-intact Urine Nitrate Negative Urine Bilirubin Negative Urine Urobilinogen 1.0 Ur Leukocyte Esterase Negative Urine RBC 1-5/hpf Urine WBC None seen Amorphous Sediment 1+ Urine Bacteria Moderate (10-30) H Urine Mucus 2+ H Ur Culture Indicated? Specimen cultured Micro UA Comment Not Reportable Assessment & Plan Plan: Assessment/Plan Narrative: Will continue current regimen as dictated by Dr. Ruiz. Kaleb may need adjustment as it seems to right up on him when he moves. Family has sound a nursing facility in [place] that they would like him transferred to when he is appropriate for discharge. From a surgical perspective, I would plan for discharge on Wednesday if these issues with his brace have been resolved. Quality VTE Deep Vein Thrombosis/Pulmonary Embolism Present on Admission: No
--- NOTE | 2017-12-22 18:07 | PM.PN.1 ---
Subjective Date Patient Seen: 12/22/17 Time Patient Seen: 18:08 Interval history: Continues to be confused. Again denies pain. Diarrhea seems to have resolved. Family is at the bedside. Daughter again expresses concerns regarding the fit of the brace. She says that he is unable to get comfortable and that she has requested a readjustment tomorrow. Exam Vital Signs (past 8 hours): - 12/22/17 12:32 12/22/17 15:15 Temperature 98 F 97.0 F L Pulse Rate 81 Respiratory Rate 18 17 Blood Pressure 140/78 H 136/69 H Pulse Oximetry 97 96 Oxygen Delivery Method Room Air Oxygen Flow Rate 0 Narrative Exam Narrative: No change in physical exam. Lungs are continued to be decreased bilaterally. Heart is regular rate and rhythm and without murmur. Abdomen is soft and nontender. He does have normoactive bowel sounds. Objective Labs Result Diagrams: 12/21/17 05:40 12/22/17 08:40 Labs: Laboratory Results - last 24 hr 12/22/17 12/22/17 07:25 08:40 Sodium 139 Potassium 3.2 L Chloride 105 Carbon Dioxide 27 Urine Color Yellow Urine Appearance Clear Urine pH 7.0 Ur Specific [place] 1.015 Urine Protein Negative Urine Glucose (UA) Negative Urine Ketones Trace H Urine Occult Blood Trace-intact Urine Nitrate Negative Urine Bilirubin Negative Urine Urobilinogen 1.0 Ur Leukocyte Esterase Negative Urine RBC 1-5/hpf Urine WBC None seen Amorphous Sediment 1+ Urine Bacteria Moderate (10-30) H Urine Mucus 2+ H Ur Culture Indicated? Specimen cultured Micro UA Comment Not Reportable Assessment & Plan Plan: Assessment/Plan Narrative: 1. Repeat chest x-ray in the morning. I expect continued improvement but it needs to be documented. 2. Tentatively plan for discharge with transfer to the residential on Wednesday. Quality VTE Deep Vein Thrombosis/Pulmonary Embolism Present on Admission: No
--- NOTE | 2017-12-22 18:28 | PC.NURSE ---
Addendum entered by Afua Hernandez R.N. 12/22/17 20:54: Pt visiting w/family. Sitting in chair since dinner. Denies need for pain meds, states that when still he 'is good'. HL intact/patent. Brace intact and in place. Call light w/in reach. Original Note: Addendum entered by Afua Hernandez R.N. 12/22/17 18:35: Pt visiting w/family, Assisted to BR w/ 2 assist w/o incidence, HL RFA intact/patent. States discomfort at 2/10 while resting. Brace on at all times. Call light w/in reach. Original Note: Pt visisting w/family. Assisted to BR w/2 assit.
[2017-12-22] MEDS: QUETIAPINE 25 MG TABLET PO (20:16)
[2017-12-22] MEDS: DONEPEZIL 5 MG TABLET PO (20:16)
--- NOTE | 2017-12-23 | DI.RAD.S_ITS ---
PROCEDURE: XR CHEST 1V INDICATIONS: Left lung contusion TECHNIQUE: One view of the chest was acquired. COMPARISON: [facility], CR, XR CHEST 1V, 12/18/2017, 6:17. [facility], CR, XR CHEST 1V, 12/16/2017, 11:26. [facility], CR, XR CHEST 1V, 12/15/2017, 20:40. FINDINGS: Surgical changes and devices: None. Lungs and pleura: No pleural effusions or pneumothorax. Patchy bilateral reticulonodular densities are unchanged, which may indicate chronic scarring versus stable pneumonia/contusions. Mediastinum: Mediastinal contours appear normal. Heart size is enlarged Bones and chest wall: No suspicious bony lesions. Overlying soft tissues appear unremarkable. IMPRESSION: No significant change in bilateral pulmonary densities, with differential considerations including chronic scarring, pneumonia, versus contusion. Dictated by: Dajuan Hudson M.D. on 12/23/2017 at 9:36 Approved by: Dajuan Hudson M.D. on 12/23/2017 at 9:37
[2017-12-23 04:26] VITALS: BP 126/56; PULSE 84; RESP 18; O2SAT 95
[2017-12-23] MEDS: ACETAMINOPHEN 325 MG TABLET 650 MG PO ×2 (04:30→10:25)
[2017-12-23 06:18] LABS: BUN Creatinine Ratio 34.3 (6-22); Blood Urea Nitrogen 24 mg/dL (9-20); Calcium 8.3 mg/dL (8.4-10.2); Carbon Dioxide 28 mmol/L (22-32); Chloride 106 mmol/L (98-107); Estimated Glomerular Filt Rate > 60.0 mL/min (>60); Glucose 105 mg/dL (80-110); HEMOLYSIS < 15 (0-50); Potassium 3.6 mmol/L (3.4-5.1); Sodium 141 mmol/L (137-145)
[2017-12-23 08:12] VITALS: BP 149/78; PULSE 84; RESP 16; TEMP 36.3; O2SAT 97
--- NOTE | 2017-12-23 08:36 | PM.PN.1 ---
Subjective Date Patient Seen: 12/23/17 Time Patient Seen: 08:36 Interval history: Patient was awakened from sleep. His only complaint this morning is that his left arm is rubbing on the TLSO brace. Continues to be confused, but his orientation is little bit better today as he is oriented to self, the year, and the current president. He was unable to identify that he was in the hospital. His son who is at the bedside all night set that he did not really have any hallucinations, but that is not back to his baseline mentation. Exam Vital Signs (past 8 hours): - 12/23/17 04:26 12/23/17 08:12 Temperature 97.3 F L Pulse Rate 84 84 Respiratory Rate 18 16 Blood Pressure 126/56 H 149/78 H Pulse Oximetry 95 97 Oxygen Delivery Method Room Air Oxygen Flow Rate 0 Narrative Exam Narrative: General: cooperative, healthy appearing, comfortable, well developed and well groomed Nutritional Appearance: overweight Orientation: alert and awake. Other: Not fully oriented. HENND Head: normal to inspection, normocephalic and atraumatic Ears: hearing grossly normal bilaterally Nose: external nose normal Face and sinus: normal facial exam Mouth: oral mucosae normal Throat: posterior oropharynx normal Eyes General: appearance normal, both eyes and all related structures Alignment and Position: alignment normal Pupils: PERRL and pupil size (2.0) bilaterally EOM: EOM intact bilaterally Neck Neck: normal visual inspection, trachea midline and supple Other: No JVD or lymphadenopathy, no masses or swelling. Chest Other: Localized rib tenderness over the left thorax, in addition to left clavicular area Resp Effort & Inspection: Decreased respiratory effort but able to speak in complete sentences Auscultation: Lungs clear anteriorly, decreased breath sounds in the bases. Coughing up small amounts of mucus. Cardio Rate: Irregular rate Rhythm: abnormal rhythm (Irregular rhythm) 12 lead EKG reveals normal sinus rhythm with frequent PVCs. GI Inspection: normal to inspection Palpation: soft Auscultation: normal bowel sounds Other: Nontender to palpation, no masses appreciated. Left upper quadrant tympanic on percussion. Last BM yesterday. Other: Unremarkable Skin General: dry skin and warm Other: Multiple large evolving ecchymotic patches noted over right shoulder and arm and left shoulder and arm. Neuro General: alert, awake and oriented to person, the year, and who the current president is. He did not know he was in the hospital and has difficulty in recalling short-term events. Sensory Exam: no sensory deficits noted Extrem General: normal to inspection, capillary refill normal, no pedal edema and no calf tenderness Psych Appearance: grossly normal Speech and Movement: speech and movement normal Mood: congruent mood Affect: normal affect Attitude: cooperative Objective Labs Result Diagrams: 12/21/17 05:40 12/23/17 05:47 Labs: Laboratory Results - last 24 hr 12/22/17 12/22/17 12/23/17 07:25 08:40 05:47 Sodium 139 141 Potassium 3.2 L 3.6 Chloride 105 106 Carbon Dioxide 27 28 BUN 24 H Creatinine 0.70 Estimated GFR > 60.0 BUN/Creatinine Ratio 34.3 H Glucose 105 Calcium 8.3 L Urine Color Yellow Urine Appearance Clear Urine pH 7.0 Ur Specific [place] 1.015 Urine Protein Negative Urine Glucose (UA) Negative Urine Ketones Trace H Urine Occult Blood Trace-intact Urine Nitrate Negative Urine Bilirubin Negative Urine Urobilinogen 1.0 Ur Leukocyte Esterase Negative Urine RBC 1-5/hpf Urine WBC None seen Amorphous Sediment 1+ Urine Bacteria Moderate (10-30) H Urine Mucus 2+ H Ur Culture Indicated? Specimen cultured Micro UA Comment Not Reportable Assessment & Plan Plan: Assessment/Plan Narrative: 1. Metabolic encephalopathy with underlying dementia: The trauma of this event may have uncovered some underlying dementia not previously noticed by family at home. He continues to display signs of underlying dementia but without hallucinations today. He is awake and alert but not oriented to place or time. He has excellent recall of distant memories but his short-term memory is impaired. His chemistry panel yesterday showed low potassium of 3.3. He was placed on b.i.d. oral supplement his potassium this morning is 3.6. Continue monitor his electrolytes. His UA reveals what is most likely an asymptomatic bacteriuria but without pyuria. After discussing this with Dr. Ruiz it was decided to not start him on ciprofloxacin. OT has also been consulted to perform a mini mental status evaluation on him. We will start him on Seroquel 25 mg at 8:00 p.m. for treating sundown syndrome. Avoid narcotics or benzodiazepine if possible. 2. Recent fall with fracture of sternum, left clavicle, left-sided ribs, T11 compression fracture. He is followed by Orthopedics and General surgery. Continue Tylenol as needed for pain control. Continue PT OT. 3. Hypertension: We increased his Norvasc to 5 mg daily. His blood pressure appears better control today ranging from 126-149 systolically to 56-84 diastolically. Continue monitor his blood pressure readings. His pulse was also slightly irregular today. His 12 lead electrocardiogram from yesterday showed normal sinus rhythm with frequent PVCs. 4. Disposition: Most likely will go to fdc facility once general surgery and Ortho clear him. Quality VTE Deep Vein Thrombosis/Pulmonary Embolism Present on Admission: No
[2017-12-23] MEDS: POTASSIUM CHLORIDE 20 MEQ TAB 40 MEQ PO ×2 (09:03→17:21)
[2017-12-23] MEDS: AMLODIPINE 5 MG TABLET PO (09:03)
[2017-12-23] MEDS: ENOXAPARIN 40 MG/0.4 ML SYRINGE SUBCUT (09:03)
[2017-12-23] MEDS: MEMANTINE HCL 5 MG TABLET 10 MG PO (09:03)
[2017-12-23] MEDS: SODIUM CHLORIDE 0.9% FLUSH 10 ML IV ×2 (09:05→21:44)
--- NOTE | 2017-12-23 10:18 | P.PN_ITS ---
Subjective Date Patient Seen: 12/23/17 Time Patient Seen: 10:00 Interval history: Patient seen bedside 1 week after patient sustained a fall with multiple rib fractures, clavicle fractures and vertebral fractures. Patient states that he is sore but can tolerate the pain well while lying in bed. The brace slides while he is in bed and becomes very uncomfortable. In addition, he is having swelling in his left hand 2/2 the left clavicle fractures , and he has a tendency to forget and move this arm causing himself a lot of pain. Patient is due to go to rehab tomorrow per general surgery. Exam Vital Signs (past 8 hours): - 12/23/17 04:26 12/23/17 08:12 Temperature 97.3 F L Pulse Rate 84 84 Respiratory Rate 18 16 Blood Pressure 126/56 H 149/78 H Pulse Oximetry 95 97 Oxygen Delivery Method Room Air Oxygen Flow Rate 0 Narrative Exam Narrative: Patient is well-developed well-nourished in no acute distress the patient is alert and oriented x3. Exam patient has ecchymosis over the clavicle on the left side with positive edema in the left hand. Range of motion in the hand is intact. Examination of the patient's brain shows that eventuality is standing however it is not fitting correctly well is lying in bed. It slides and ends up around the patient's neck. He is neurovascularly intact in his extremities. Objective Labs Result Diagrams: 12/21/17 05:40 12/23/17 05:47 Labs: Laboratory Results - last 24 hr 12/23/17 05:47 Sodium 141 Potassium 3.6 Chloride 106 Carbon Dioxide 28 BUN 24 H Creatinine 0.70 Estimated GFR > 60.0 BUN/Creatinine Ratio 34.3 H Glucose 105 Calcium 8.3 L Assessment & Plan Plan: Assessment/Plan Narrative: After evaluation of the patient's brace in discussion with the family believes that the patient does not need his brace well as laying in bed. It should instead be placed on when he is ambulating. I would recommend he received a sling and place his arm and help with pain from the clavicle fractures. I believe this also will help with swelling in the left hand. Patient should follow up with the orthopedic office in 10-14 days. Please call the office to make the appointment. All questions answered at the time of exam Time Spent With Patient Time with patient: less than 15 minutes Quality VTE Deep Vein Thrombosis/Pulmonary Embolism Present on Admission: No
--- NOTE | 2017-12-23 11:00 | PT.IPTN ---
Current Diagnoses Unspecified fracture of T11-T12 vertebra, initial encounter for closed fracture (12/16/17) Unspecified fracture of sternum, initial encounter for closed fracture (12/16/17) Fracture of one rib, left side, initial encounter for closed fracture (12/16/17) Unspecified fracture of first lumbar vertebra, initial encounter for closed fracture (12/16/17) Fracture of unspecified part of left clavicle, initial encounter for closed fracture (12/16/17) Fracture of unspecified part of scapula, left shoulder, initial encounter for closed fracture (12/16/17) Physical Therapy Treatment Note M2 PT-IP Current Condition Start: 12/16/17 16:41 Freq: NEEDED Status: Active Protocol: Document 12/20/17 15:51 LR (Rec: 12/20/17 16:13 [facility] [id number]) Physical Therapy Current Condition Current Condition Evaluation Date 12/20/17 Treatment Diagnosis L clavicle & scapular fx, sternal fx & T11 fx. Precautions Lumbar Precautions Log Roll No Twisting Limit Bending Brace Must wear hard shell TLSO at all times Other Precautions NWB L UE Weight Bearing Status Weight Bearing Status Weight Bear as Tolerated Allowed Weight Bearing Amount (enter % LEs; NWB LUE or #) (%) M3 PT-IP Subjective Start: 12/16/17 16:41 Freq: NEEDED Status: Active Protocol: Document 12/23/17 11:00 AB (Rec: 12/23/17 11:55 AB [id number]) Subjective Physical Therapy Visit Type Type Treatment Note Visit Start Time 11:00 Visit Stop Time 11:31 Total Visit Minutes 31 Number of DUCT INSTALLER Visits 0 Physical Therapy Visit Comments Patient Comments pt agreeable to do therapy Therapy Pain Assessment Pain When Pain Assessed At Rest Pain Present Pain Present Pain Reported Location Bilateral Lateral Ribs Scale Used pain scale not stated M4 PT-IP Mobility and Gait Start: 12/16/17 16:41 Freq: NEEDED Status: Active Protocol: Document 12/23/17 11:00 AB (Rec: 12/23/17 11:55 AB [id number]) PT-Bed Mobility Assessment Sit to Supine Sit to Supine Maximum Assistance 1 Person Assistance Bedrails PT-Transfer Assessment Sit to and From Stand Sit to and from Stand Moderate Assistance 1 Person Assistance Use of Upper Extremities Equipment Transfer Assistive Device Gait Belt Small Based Quad Cane Transfers Transfer Destination Bed Transfer Technique Stand Step Pivot Transfer Ability Level of Assist Moderate Assistance Gait Assessment Gait Gait Assistance Required: Moderate Assistance Distance (Feet) (feet) 25 Able to Maintain Weight Bearing Status Yes During Gait Assistive Devices Assistive Device Gait Belt Small Based Quad Cane Orthotic/Prosthetic Devices or Brace: Yes Factors Limiting Gait Function Factors Limiting Gait Function Decreased Activity Tolerance Decreased Strength Difficulty Following Directions Limited Range of Motion Pain Poor Balance Poor Safety Awareness M5 PT-IP Objective Assessments Start: 12/16/17 16:41 Freq: NEEDED Status: Active Protocol: Document 12/20/17 15:51 [facility] (Rec: 12/20/17 16:13 [facility] [id number]) Orientation Orientation/Cognition Level of Alertness Confusional State Safety Awareness Decreased Safety Awareness Gross Range of Motion Upper Extremity ROM Assessment Left Impaired Strength Upper Extremity Strength Assessment Left Impaired Lower Extremity Strength Assessment Bilaterally Impaired Comments Strength Comments Generalized weakness after fall and not out of bed for 4 days M6 PT-IP Treatment Start: 12/16/17 16:41 Freq: NEEDED Status: Active Protocol: Document 12/23/17 11:00 AB (Rec: 12/23/17 11:55 AB [id number]) Physical Therapy Treatment Education Education Provided Precautions Weight Bearing Status Safety Brace Education Donning [place] Caregiver Other Treatments Other Treatment Performed assisted pt with TLSO adjustment. educated pt's son on how to adjust brace and proper set up. Saima from [employer] came in and took brace with her for readjustment. M7 PT-IP Assessment and Plan Start: 12/16/17 16:41 Freq: NEEDED Status: Active Protocol: Document 12/23/17 11:00 AB (Rec: 12/23/17 11:55 AB [id number]) PT Summary Assessment and Plan Potential Rehabilitation Potential Fair Summary Impairments Pain ROM Strength Balance Coordination Sensation Tone Cognition Bed Mobility Transfers Gait Activity Tolerance Progress Towards Goals Slow Progress due to Medical Issues Slow Progress due to Activity Tolerance Assessment Summary pt progressing slowly but continues to have decrease activity tolerance. cognition seems better today with pt able to follow directions but pt can still be impulsive. pt will benefit from SNF rehab. Goals Bed Mobility Goal Minimal Assistance Transfer Goal Minimal Assistance Cane Gait Goal Minimal Assistance Cane Gait Distance 35ft Days to Meet Goals 4 Frequency of Treatment Frequency Of Treatment Twice a Day Treatment Plan Physical Therapy Treatment Plan Bed Mobility Training Transfer Training Gait Training Therapeutic Exercise Balance Retraining Discharge Planning Recommendations To Nursing Amount of Assist Needed 2 Person Assist Discharge Recommendations PT Discharge Recommendations SNF Rehab
--- NOTE | 2017-12-23 11:38 | PM.PN.1 ---
Subjective Date Patient Seen: 12/23/17 Time Patient Seen: 11:38 Interval history: Much more oriented today. He reports his pain is reasonably well controlled as long as he is still. Feels his brace needs to be adjusted because he says it is too loose on the back. His son is with him at the bedside and reports he thinks he inadvertently sent the brace person away. He feels very strongly that this needs to be adjusted before he is transferred to the nursing facility. The patient reports it is too loose and it needs to be tightened up on the back while he is sitting up. He is also complaining of some significant arm pain with any motion and says the orthopedic PA told him he needed a sling. He is waiting for that to be delivered. He continues to eat well and his bowels are functioning normally. More confusion at night but less hallucinations last night and he had had in the previous several. Exam Vital Signs (past 8 hours): - 12/23/17 04:26 12/23/17 08:12 Temperature 97.3 F L Pulse Rate 84 84 Respiratory Rate 18 16 Blood Pressure 126/56 H 149/78 H Pulse Oximetry 95 97 Oxygen Delivery Method Room Air Oxygen Flow Rate 0 Narrative Exam Narrative: Lungs: Essentially clear though somewhat decreased at the bases bilaterally. He complains that it is very painful to use his IS but his his son is encouraging him and he is still continuing to try. No wheezing. Heart: Regular rate and rhythm Abdomen: Soft, nontender, active bowel sounds. Objective Labs Result Diagrams: 12/21/17 05:40 12/23/17 05:47 Labs: Laboratory Results - last 24 hr 12/23/17 05:47 Sodium 141 Potassium 3.6 Chloride 106 Carbon Dioxide 28 BUN 24 H Creatinine 0.70 Estimated GFR > 60.0 BUN/Creatinine Ratio 34.3 H Glucose 105 Calcium 8.[address] [address] XRay Report Signed Patient: Harris Mann MR#: [id number] : 1935 Acct:[id number] Age/Sex: 82 / M Date of Service: 12/23/17 Loc: 213-1 Accession Number: [id number] Procedure: XR chest 1V Ordering Provider: Judith Reed MD PROCEDURE: XR CHEST 1V INDICATIONS: Left lung contusion TECHNIQUE: One view of the chest was acquired. COMPARISON: [facility], CR, XR CHEST 1V, 12/18/2017, 6:17. [facility], CR, XR CHEST 1V, 12/16/2017, 11:26. [facility], CR, XR CHEST 1V, 12/15/2017, 20:40. FINDINGS: Surgical changes and devices: None. Lungs and pleura: No pleural effusions or pneumothorax. Patchy bilateral reticulonodular densities are unchanged, which may indicate chronic scarring versus stable pneumonia/contusions. Mediastinum: Mediastinal contours appear normal. Heart size is enlarged Bones and chest wall: No suspicious bony lesions. Overlying soft tissues appear unremarkable. IMPRESSION: No significant change in bilateral pulmonary densities, with differential considerations including chronic scarring, pneumonia, versus contusion. Dictated by: Dajuan Hudson M.D. on 12/23/2017 at 9:36 Approved by: Dajuan Hudson M.D. on 12/23/2017 at 9:37 Assessment & Plan Plan: Assessment/Plan Narrative: Very pleasant 82-year-old gentleman status post multiple orthopedic injuries rib fractures and vertebral body fractures after a low level fall. I will wait for the brace to be adjusted once more before discharge. He will also receive his sling today. Plan for transfer to the nursing facility tomorrow morning. Quality VTE Deep Vein Thrombosis/Pulmonary Embolism Present on Admission: No
[2017-12-23 13:19] VITALS: BP 125/71; PULSE 83; RESP 16; TEMP 36.5; O2SAT 93
--- NOTE | 2017-12-23 14:20 | PT.IPTN ---
Current Diagnoses Unspecified fracture of T11-T12 vertebra, initial encounter for closed fracture (12/16/17) Unspecified fracture of sternum, initial encounter for closed fracture (12/16/17) Fracture of one rib, left side, initial encounter for closed fracture (12/16/17) Unspecified fracture of first lumbar vertebra, initial encounter for closed fracture (12/16/17) Fracture of unspecified part of left clavicle, initial encounter for closed fracture (12/16/17) Fracture of unspecified part of scapula, left shoulder, initial encounter for closed fracture (12/16/17) Physical Therapy Treatment Note M2 PT-IP Current Condition Start: 12/16/17 16:41 Freq: NEEDED Status: Active Protocol: Document 12/20/17 15:51 LR (Rec: 12/20/17 16:13 [facility] [id number]) Physical Therapy Current Condition Current Condition Evaluation Date 12/20/17 Treatment Diagnosis L clavicle & scapular fx, sternal fx & T11 fx. Precautions Lumbar Precautions Log Roll No Twisting Limit Bending Brace Must wear hard shell TLSO at all times Other Precautions NWB L UE Weight Bearing Status Weight Bearing Status Weight Bear as Tolerated Allowed Weight Bearing Amount (enter % LEs; NWB LUE or #) (%) M3 PT-IP Subjective Start: 12/16/17 16:41 Freq: NEEDED Status: Active Protocol: Document 12/23/17 14:20 AB (Rec: 12/23/17 16:17 AB [id number]) Subjective Physical Therapy Visit Type Type Treatment Note Visit Start Time 14:20 Visit Stop Time 15:00 Total Visit Minutes 40 Number of BRANCH ACCOUNT MANAGER Visits 0 Physical Therapy Visit Comments Patient Comments pt agreeable to do therapy Therapy Pain Assessment Pain When Pain Assessed At Rest Pain Present Pain Present Pain Reported Location Bilateral Lateral Ribs Scale Used pain scale not stated M4 PT-IP Mobility and Gait Start: 12/16/17 16:41 Freq: NEEDED Status: Active Protocol: Document 12/23/17 14:20 AB (Rec: 12/23/17 16:17 AB [id number]) PT-Bed Mobility Assessment Rolling Level of Assist Maximal Assistance 1 Person Assistance Supine to Sit Supine to Sit Maximum Assistance 1 Person Assistance PT-Transfer Assessment Sit to and From Stand Sit to and from Stand Moderate Assistance 1 Person Assistance Comments Mobility Comments pt agreed to sit up on chair after PT session . positioned pt on chair and adjusted brace. call light and table placed within reach. Gait Assessment Gait Gait Assistance Required: Minimum Assistance Moderate Assistance Distance (Feet) (feet) 15 Able to Maintain Weight Bearing Status Yes During Gait Assistive Devices Assistive Device Gait Belt Small Based Quad Cane Gait Deviations General Gait Pattern Decreased Stride Length Decreased Feet Clearance Factors Limiting Gait Function Factors Limiting Gait Function Decreased Activity Tolerance Decreased Strength Difficulty Following Directions Pain Poor Balance Poor Safety Awareness Comments Gait Comments pt ambulated from bed <>toilet using SBQC min to mod A and cues for safety. M5 PT-IP Objective Assessments Start: 12/16/17 16:41 Freq: NEEDED Status: Active Protocol: Document 12/20/17 15:51 LR (Rec: 12/20/17 16:13 [facility] [id number]) Orientation Orientation/Cognition Level of Alertness Confusional State Safety Awareness Decreased Safety Awareness Gross Range of Motion Upper Extremity ROM Assessment Left Impaired Strength Upper Extremity Strength Assessment Left Impaired Lower Extremity Strength Assessment Bilaterally Impaired Comments Strength Comments Generalized weakness after fall and not out of bed for 4 days M6 PT-IP Treatment Start: 12/16/17 16:41 Freq: NEEDED Status: Active Protocol: Document 12/23/17 14:20 AB (Rec: 12/23/17 16:17 AB [id number]) Physical Therapy Treatment Education Education Provided Precautions Weight Bearing Status Safety Brace Education Donning [place] Caregiver Equipment Issued Equipment Type [employer] TLSO brace in pt's room after Saima terry [employer] made adjustments. daughter stated that it seems brace is better. Other Treatments Other Treatment Performed assisted pt with donning/ doffing of brace and adjusted for fitting. educated pt's daughter on proper donning and positioning of TLSO brace. adult protective caseworker informed PT that pt may d/c tomorrow to [place] and asked regarding safe form of transportation to transfer pt. PT suggested pt will be more comfortable with family using their private vehicle if their car is not too high for pt to get into. informed and educated family regarding different options and recommendation. family stated that they will think and decide. adult protective caseworker informed. M7 PT-IP Assessment and Plan Start: 12/16/17 16:41 Freq: NEEDED Status: Active Protocol: Document 12/23/17 14:20 AB (Rec: 12/23/17 16:17 AB [id number]) PT Summary Assessment and Plan Potential Rehabilitation Potential Fair Summary Impairments Pain ROM Strength Balance Cognition Bed Mobility Transfers Gait Activity Tolerance Progress Towards Goals Slow Progress due to Medical Issues Assessment Summary pt continues to require 1 person assist with mobility and cues needed for safety. pt will benefit from SNF rehab . Goals Bed Mobility Goal Minimal Assistance Transfer Goal Minimal Assistance Cane Gait Goal Minimal Assistance Cane Gait Distance 35ft Days to Meet Goals 4 Frequency of Treatment Frequency Of Treatment Twice a Day Treatment Plan Physical Therapy Treatment Plan Bed Mobility Training Transfer Training Gait Training Therapeutic Exercise Balance Retraining Discharge Planning Recommendations To Nursing Amount of Assist Needed 2 Person Assist Discharge Recommendations PT Discharge Recommendations SNF Rehab
--- NOTE | 2017-12-23 14:25 | PM.DS.1 ---
History of Present Illness Chief complaint: Fell Off Deck Narrative: Very pleasant and generally healthy 82 year old man who was enjoying fireworks at his daughter's home when he somehow fell backwards off of the deck. The fall was witnessed by multiple family members who all deny any loss of consciousness. Mr. Mann remembers the events but does not remember slipping or stumbling over anything. He definitely remembers the fall and says he never was unconscious. He is complaining of significant left shoulder and chest pain. He also has some pain in his back. He denies any numbness or tingling of any of his extremities. He says the whole left side of his body hurts so much that it is difficult to tell exactly what hurts. Discharge Providers Date of admission: 12/16/17 01:35 Consults: 12/16/17 00:42 Consult to General Surgery Routine Comment: Consulting Provider: Judith Reed Reason for consultation: fall, multiple fractures Has provider been notified: Yes 12/16/17 03:12 Consult to Dietitian, Adult Routine Comment: Reason For Exam: risk for malnutrition 12/16/17 10:30 Consult to Occupational Therapy Evaluate & Treat Comment: Physician Instructions: Evaluate and treat Consult to Physical Therapy Evaluate & Treat Comment: Physician Instructions: Evaluate and Treat 12/16/17 11:20 Consult to Respiratory Therapy Evaluate & Treat Comment: Physician Instructions: Evaluate and treat 12/16/17 11:29 Consult to Orthopedic Surgery Routine Comment: Consulting Provider: Marianne Law Reason for consultation: Multiple fractures of shoulder and t spine Has provider been notified: Yes 12/16/17 19:15 Consult to Physical Therapy Evaluate & Treat Comment: help patient to get a kydex brace thru [facility] Physician Instructions: bivalve brace to stabilize T11 fx, sternal fx, cla 12/22/17 11:17 Consult to Occupational Therapy Evaluate & Treat Comment: please conduct mini mental exam for dementia. Physician Instructions: Evaluate and treat Discharge provider: Judith Reed MD Summary Discharge Diagnosis: Low level fall with multiple fractures and a left lung contusion Hospital Course: Mr. Mann was admitted through the emergency room. Orthopedic surgery was consulted to manage his fractures. Physical therapy and respiratory therapy were consulted to help manage his mobility and pulmonary toilet. On approximately the 4th hospital day, he began to show evidence of delirium. All of his pain medicine was stopped with the exception of tramadol and Tylenol. He began to clear up over 2 or 3 days. Seroquel was helpful at night in limiting his hallucinations. On Wednesday, he had a clamshell brace fitted and placed. He is now able to sit in a chair and even ambulate with the brace in place. He will have a sling for his left arm to help with pain and manage his lack of mobility while his clavicle and scapular fractures heal. Chest x-ray today revealed his lung is healing nicely. He has not hold lung disease but definitely no new lesions. His delirium is largely improved and he is approaching his neurologic baseline. He is ready for discharge to a intermediate facility that has been evaluated and chosen by his family. Status at Discharge Cognitive/behavioral status at discharge: Mild delirium Functional status at discharge: uses cane/walker Overall status at discharge: patient is not back to baseline Time Spent with Patient Greater than 30 minutes Exam Vital Signs (past 8 hours): - 12/23/17 08:12 12/23/17 13:19 Temperature 97.3 F L 97.7 F Pulse Rate 84 83 Respiratory Rate 16 16 Blood Pressure 149/78 H 125/71 H Pulse Oximetry 97 93 Oxygen Delivery Method Room Air Oxygen Flow Rate 0 Narrative Exam Narrative: Elderly gentleman sitting up next to his bed in a chair. His braces on and he reports that it is uncomfortable. Again reiterates that he does not remember tripping and he does not understand why he fell. Lungs: Clear bilaterally. No crepitance. Chest: Significant bruising to the left anterior and posterior chest as well as the left chest wall and left arm. Heart: Regular rate and rhythm without murmur Abdomen: Soft, nontender, active bowel sounds Extremities: As above, lower extremities are warm and well perfused with only superficial scratches Objective Labs Result Diagrams: 12/21/17 05:40 12/23/17 05:47 Labs: Laboratory Results - last 24 hr 12/23/17 05:47 Sodium 141 Potassium 3.6 Chloride 106 Carbon Dioxide 28 BUN 24 H Creatinine 0.70 Estimated GFR > 60.0 BUN/Creatinine Ratio 34.3 H Glucose 105 Calcium 8.3 L Discharge Plan Discharge Plan Patient Disposition: SNF Transportation: Ambulance I certify the postop hospital intermediate care is medically necessary on a continuing basis for any conditions for which he/ she received care during this hospitalization.: Yes The receiving facility has agreed to accept transfer and provide medical treatment.: Yes Discharge Health Status Brief summary of current health status: Clavicle fracture, scapula fracture, multiple rib fractures, vertebral body fracture and lung contusion Multidrug resistant organism: No MDRO MDRO Verified by culture: No Provider Discharge Instructions Diet: Diet as Tolerated Liquid consistency: Normal/Thin Food texture: Regular Activity: Ambulate only with brace in place. Brace needs to be worn when sitting standing or ambulating. He does not need on in bed or for hygiene. Special Rehabilitation Services Restrictions to mobility: Please wear sling, No ROM at this time Discharge Data Attending Provider: Judith Reed Admit Date/Time: 12/16/17 01:35 Discharges patient from system. Discharge Date/Time: 12/24/17 11:28 Quality VTE Deep Vein Thrombosis/Pulmonary Embolism Present on Admission: No
--- NOTE | 2017-12-23 15:35 | OT.IP.TRT ---
Current Diagnoses Unspecified fracture of T11-T12 vertebra, initial encounter for closed fracture (12/16/17) Unspecified fracture of sternum, initial encounter for closed fracture (12/16/17) Fracture of one rib, left side, initial encounter for closed fracture (12/16/17) Unspecified fracture of first lumbar vertebra, initial encounter for closed fracture (12/16/17) Fracture of unspecified part of left clavicle, initial encounter for closed fracture (12/16/17) Fracture of unspecified part of scapula, left shoulder, initial encounter for closed fracture (12/16/17) Occupational Therapy Treatment Note M2 OT-IP Current Condition Start: 12/21/17 15:31 Freq: Status: Active Protocol: Document 12/23/17 15:00 ADH (Rec: 12/23/17 15:35 ADH [id number]) Occupational Therapy Current Condition Current Condition Evaluation Date 12/22/17 Treatment Diagnosis decreased self care/mobility due to multiple fx's Diagnosis Onset Date 12/17/17 Post Operative Precautions Lumbar Precautions Log Roll No Twisting Limit Bending Lifting Restriction of 10 lbs Shoulder Precautions Sling Other Precautions NWB L UE; new orders for LUE sling Weight Bearing Status Weight Bearing Status Weight Bear as Tolerated Allowed Weight Bearing Amount (enter % LEs; NWB LUE due to clavicle or #) (%) fx and scapular fx M3 OT- IP Subjective and Pain Start: 12/21/17 15:31 Freq: Status: Active Protocol: Document 12/23/17 15:00 ADH (Rec: 12/23/17 15:35 ADH [id number]) OT- Subjective Occupational Therapy Visit Type Type Treatment Note Visit Start Time 02:10 Visit Stop Time 03:00 Total Visit Minutes 50 Notes Pt recieved b.i.d. OT services to fit for LUE sling, assess functional transfers, d/c planning with family, caregiver education. Occupational Therapy Visit Comments Patient Comments I don't hurt too much OT Pain Assessment Pain When Pain Assessed During Mobility Pain Present Pain Present Pain Reported Location Left Upper Medial Arm Scale Used pt unable to rate on 10 pt scale due to confusion; denies pain at rest in b M4 OT- IP ADL's Start: 12/21/17 15:31 Freq: Status: Active Protocol: Document 12/23/17 15:00 ADH (Rec: 12/23/17 15:35 ADH [id number]) OT ADL-Dressing General Eval Upper Body Dressing Ability Minimal Assistance Lower Body Dressing Ability Maximum Assistance Areas Needing Assistance Underpants/Brief Comments OT Dressing Comments Max A for brief/pants management, sarah shirt management OT ADL-Toileting General Evaluation Toileting Ability Moderate Assistance Devices Toileting Assistive Devices Commode Raised Toilet Seat Comments OT Toileting Comments Pt sat for BM, stood at R GB with SBA for total A posterior hygiene and LB clothing management. No LOB or sway. Fair safety awareness; SBA on toilet d/t confuision M5 OT- IP IADL's Start: 12/21/17 15:31 Freq: Status: Active Protocol: Document 12/23/17 15:00 ADH (Rec: 12/23/17 15:35 [facility] [id number][facility] OT-Instrumental Activities of Daily Living Deficits IADL Deficits Identified Deficits Home Safety Awareness Awareness of Need for Assistance at Home Decreased Awareness Ability to Problem Solve Emergency Unable to Problem Solve Situations Home Safety Comments confusion interferes with safety awareness at present Medication Management Medication Management Caregiver Administers Medication Management Comments pt confused at present, pt indep with meds prior to admit Money Management Money Management Caregiver Provides Assistance Money Management Comments pt indep prior to admit, daughter assisting at present Meal Preparation Meal Preparation Caregiver Provides Assist Meal Preparation Comments pt indep with meal prep prior to admit Visitor Services Assistant Visitor Services Assistant Caregiver Provides Assist Visitor Services Assistant Comments pt indep prior to admit Driving Driving Caregiver Provides Assist Driving [place] prior to admit M6 OT- IP Functional Cognition Start: 12/21/17 15:31 Freq: Status: Active Protocol: Document 12/23/17 15:00 ADH (Rec: 12/23/17 15:35 [facility] [id number]) Cognitive Factors Limiting Selfcare Function Cognitive Ability Level of Alertness Confusional State Attention Span Ability Capable of Focused Attention Ability to Follow Commands Able to Follow One Step Commands with Increased Time Memory Description Immediate Impaired Short Term Impaired Safety Awareness Decreased Recall of Precautions Decreased Ability to Apply Precautions Underestimates Need for Assistance Problem Solving Ability Unable to Identify Errors Needs Assist to Identify Solutions Executive Function Ability Unable to Filter Distractions Unable to Organize Plans Unable to Remember Details Abstract Thinking Ability Unable to Draw Logical Conclusions Cognitive Comments Cognitive Assessment Comments Pt's orientation improving per daughter, but conversation still confused at times and pt far below baseline level of cognitive function, as he lived independently and was driving. OT- Vision and Hearing OT- Hearing Assessment OT- Hearing Assessment Hearing Impaired Use of Hearing Aids OT- Vision Assessment Visual Acuity Glasses All The Time M7 OT- IP Mobility and Balance Start: 12/21/17 15:31 Freq: Status: Active Protocol: Document 12/23/17 15:00 ADH (Rec: 12/23/17 15:35 [facility] [id number]) OT- Bed Mobility Assessment Rolling Type of Rolling Log Rolling Roll to Right Level of Assistance Minimal Assistance 1 Person Assistance Supine to Sit Supine to Sit Assist Moderate Assistance 1 Person Assistance Scooting Scooting to Edge of Bed Minimal Assistance OT-Transfer Assessment Sit to and From Stand Sit to and from Stand Minimal Assistance Transfers Transfer Ability Minimal Assistance Technique Transfer Destination Chair Transfer Technique Stand Step Pivot Devices Transfer Assistive Devices Small Based Quad Cane Orthotic/Prosthetic Devices or Brace: Yes Comments Mobility Comments TLSO clamshell brace on at all times, LUE sling OT- Gait Assessment Gait Gait Assistance Required: Minimum Assistance Distance (Feet) (feet) 20 Assistive Devices Assistive Device Small Based Quad Cane Comments Gait Ability Comments TLSO on at all times, pt unsteady, especially on turns M8 OT- IP Objective Assessments Start: 12/21/17 15:31 Freq: Status: Active Protocol: Document 12/23/17 15:00 ADH (Rec: 12/23/17 15:35 [facility] [id number]) OT Gross Range of Motion Upper Extremity Range of Motion Assessment Left Impaired M9 OT- IP Assessment and Plan Start: 12/21/17 15:31 Freq: Status: Active Protocol: Document 12/23/17 15:00 ADH (Rec: 12/23/17 15:35 [id number] Summary Assessment and Plan Potential Rehabilitation Potential Good Summary OT Impairments Pain Range of Motion Strength Balance Functional Cognition Functional Mobility Grooming Dressing Toileting Bathing Toilet Transfers Shower Transfers Assessment Summary Moderate complexity OT assessment due to multiple fx' s requiring modification of mobility techniques to adhere to precautions. Pt has performance deficits in functional cognition, LUE ROM, strength and functional use and decreased independence in all self care, functional mobility and transfers at present. Pt far below his baseline of living alone and driving. Recommend SNF at d/c for further subacute rehab. Pt pleasant and cooperative, despite intermittent confusion with good effort and participation. Discharge Recommendations OT Discharge Recommendations SNF Rehab Home Equipment Needs to be determined by SNF
[2017-12-23 15:37] VITALS: BP 109/62; PULSE 97; RESP 20; TEMP 36.1; O2SAT 97
--- NOTE | 2017-12-23 15:44 | CM.DPC ---
DCP Cont: Per Dr. Reed, pt medically stable to d/c to SNF in the morning and will complete the d/c this evening since she is not here tomorrow. Dr. following the pt at [facility] is Dr. Lalo Meehan. Pt's brace was adjusted and fitting pt better. SW met bedside with pt and large family with PT and OT who worked with the pt and provided transport recommendations. Since pt is much more alert and oriented today and ambulating fairly well then PT/OT feel that pt can safely transport in private vehicle with reclined seat. Per family, they currently are planning to see how much pt's van seat reclines and would like to plan on transporting the pt themselves tomorrow as long as pt remains stable and oriented. Family plans to transport the pt tomorrow around 1000 to [facility]. SW updated PT/OT and they will work with pt again tomorrow and help confirm that pt can safely get into private vehicle before he leaves. CHARI called Amanda at [facility] and left vm with update on likely d/c time via private vehicle. Plan: SW to follow for confirming with PT/OT that pt is safe for d/c to [facility] in [place] via private vehicle around 1000. SW to fax PASRR, med rec, d/c summ, and scripts to [facility] right away in the morning. BLAYNE Garcia
[2017-12-23] MEDS: TRAMADOL 50 MG TABLET PO ×2 (17:22→21:43)
[2017-12-23 19:06] VITALS: BP 140/81; PULSE 88; RESP 18; TEMP 36.2; O2SAT 95
[2017-12-23] MEDS: DONEPEZIL 5 MG TABLET PO (21:43)
[2017-12-23] MEDS: QUETIAPINE 25 MG TABLET PO (21:44)
[2017-12-24 00:03] VITALS: BP 130/71; PULSE 82; RESP 20; TEMP 36.5; O2SAT 97
[2017-12-24 04:30] VITALS: BP 134/82; PULSE 80; RESP 17; TEMP 36.7; O2SAT 99
[2017-12-24] MEDS: TRAMADOL 50 MG TABLET PO ×2 (06:03→11:07)
[2017-12-24 07:45] VITALS: BP 119/54; PULSE 84; RESP 14; TEMP 36.3; O2SAT 94
[2017-12-24] MEDS: POTASSIUM CHLORIDE 20 MEQ TAB 40 MEQ PO (08:44)
[2017-12-24] MEDS: ACETAMINOPHEN 325 MG TABLET 650 MG PO (08:44)
[2017-12-24] MEDS: MEMANTINE HCL 5 MG TABLET 10 MG PO (08:44)
[2017-12-24] MEDS: ENOXAPARIN 40 MG/0.4 ML SYRINGE SUBCUT (08:44)
[2017-12-24] MEDS: AMLODIPINE 5 MG TABLET PO (08:44)
--- NOTE | 2017-12-24 09:50 | PT.IPTN ---
Current Diagnoses Unspecified fracture of T11-T12 vertebra, initial encounter for closed fracture (12/16/17) Unspecified fracture of sternum, initial encounter for closed fracture (12/16/17) Fracture of one rib, left side, initial encounter for closed fracture (12/16/17) Unspecified fracture of first lumbar vertebra, initial encounter for closed fracture (12/16/17) Fracture of unspecified part of left clavicle, initial encounter for closed fracture (12/16/17) Fracture of unspecified part of scapula, left shoulder, initial encounter for closed fracture (12/16/17) Physical Therapy Treatment Note M2 PT-IP Current Condition Start: 12/16/17 16:41 Freq: NEEDED Status: Discharge Protocol: Document 12/20/17 15:51 LR (Rec: 12/20/17 16:13 [facility] [id number]) Physical Therapy Current Condition Current Condition Evaluation Date 12/20/17 Treatment Diagnosis L clavicle & scapular fx, sternal fx & T11 fx. Precautions Lumbar Precautions Log Roll No Twisting Limit Bending Brace Must wear hard shell TLSO at all times Other Precautions NWB L UE Weight Bearing Status Weight Bearing Status Weight Bear as Tolerated Allowed Weight Bearing Amount (enter % LEs; NWB LUE or #) (%) M3 PT-IP Subjective Start: 12/16/17 16:41 Freq: NEEDED Status: Discharge Protocol: Document 12/24/17 09:50 AB (Rec: 12/24/17 12:42 AB [id number]) Subjective Physical Therapy Visit Type Type Treatment Note Visit Start Time 09:50 Visit Stop Time 10:07 Total Visit Minutes 17 Number of INSOLE FILLER Visits 0 Physical Therapy Visit Comments Patient Comments pt agreeable to do walking Therapy Pain Assessment Pain When Pain Assessed At Rest Pain Present Pain Present Pain Reported Location Bilateral Lateral Ribs Scale Used pain scale not stated M4 PT-IP Mobility and Gait Start: 12/16/17 16:41 Freq: NEEDED Status: Discharge Protocol: Document 12/24/17 09:50 AB (Rec: 12/24/17 12:42 AB [id number]) PT-Transfer Assessment Sit to and From Stand Sit to and from Stand Moderate Assistance 1 Person Assistance Gait Assessment Gait Gait Assistance Required: Minimum Assistance Moderate Assistance Distance (Feet) (feet) 25 Able to Maintain Weight Bearing Status Yes During Gait Assistive Devices Assistive Device Gait Belt Small Based Quad Cane Orthotic/Prosthetic Devices or Brace: Yes Gait Deviations General Gait Pattern Decreased Stride Length Decreased Feet Clearance Factors Limiting Gait Function Factors Limiting Gait Function Decreased Activity Tolerance Decreased Strength Difficulty Following Directions Pain Poor Balance Poor Safety Awareness M5 PT-IP Objective Assessments Start: 12/16/17 16:41 Freq: NEEDED Status: Discharge Protocol: Document 12/20/17 15:51 LRH (Rec: 12/20/17 16:13 LR [id number]) Orientation Orientation/Cognition Level of Alertness Confusional State Safety Awareness Decreased Safety Awareness Gross Range of Motion Upper Extremity ROM Assessment Left Impaired Strength Upper Extremity Strength Assessment Left Impaired Lower Extremity Strength Assessment Bilaterally Impaired Comments Strength Comments Generalized weakness after fall and not out of bed for 4 days M6 PT-IP Treatment Start: 12/16/17 16:41 Freq: NEEDED Status: Discharge Protocol: Document 12/24/17 09:50 AB (Rec: 12/24/17 12:42 AB [id number]) Physical Therapy Treatment Education Education Provided Precautions Safety Brace Education Donning [place] Caregiver Other Treatments Other Treatment Performed caregiver education provided for donning/doffing of sling. M7 PT-IP Assessment and Plan Start: 12/16/17 16:41 Freq: NEEDED Status: Discharge Protocol: Document 12/24/17 09:50 AB (Rec: 12/24/17 12:42 AB [id number]) PT Summary Assessment and Plan Potential Rehabilitation Potential Good Summary Impairments Pain ROM Strength Balance Coordination Tone Cognition Bed Mobility Transfers Gait Activity Tolerance Progress Towards Goals Slow Progress due to Medical Issues Assessment Summary pt progressing slowly with mobility requiring min to mod A with ambulation using SBQC but continues to have decrease activity tolerance. pt plans to d/c to SNF today. Goals Bed Mobility Goal Minimal Assistance Transfer Goal Minimal Assistance Cane Gait Goal Minimal Assistance Cane Gait Distance 35ft Days to Meet Goals 4 Frequency of Treatment Frequency Of Treatment Twice a Day Treatment Plan Physical Therapy Treatment Plan Bed Mobility Training Transfer Training Gait Training Therapeutic Exercise Balance Retraining Discharge Planning Recommendations To Nursing Amount of Assist Needed 1 Person Assist Discharge Recommendations PT Discharge Recommendations SNF Rehab
--- NOTE | 2017-12-24 10:32 | CM.DPNOTE ---
SNF/Discharge: Family will arrive at 1100 to transport patient. Faxed discharge orders and PASRR to [facility] [phone].
--- NOTE | 2017-12-24 10:43 | PC.NURSE ---
DISCHARGE: REPORT CALLED TO DUTCH AT [facility]. ALL QUESTIONS ANSWERED TO SATISFACTION. DESCRIBED BRACE AND SLING USE AND ORDERS.
--- NOTE | 2017-12-24 11:27 | PC.NURSE ---
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
--- NOTE | 2017-12-24 13:03 | OT.IP.TRT ---
Current Diagnoses Unspecified fracture of T11-T12 vertebra, initial encounter for closed fracture (12/16/17) Unspecified fracture of sternum, initial encounter for closed fracture (12/16/17) Fracture of one rib, left side, initial encounter for closed fracture (12/16/17) Unspecified fracture of first lumbar vertebra, initial encounter for closed fracture (12/16/17) Fracture of unspecified part of left clavicle, initial encounter for closed fracture (12/16/17) Fracture of unspecified part of scapula, left shoulder, initial encounter for closed fracture (12/16/17) Occupational Therapy Treatment Note M2 OT-IP Current Condition Start: 12/21/17 15:31 Freq: Status: Active Protocol: Document 12/24/17 10:35 ADH (Rec: 12/24/17 12:57 ADH [id number]) Occupational Therapy Current Condition Current Condition Evaluation Date 12/22/17 Treatment Diagnosis decreased self care/mobility due to multiple fx's Diagnosis Onset Date 12/17/17 Post Operative Precautions Lumbar Precautions Log Roll No Twisting Limit Bending Lifting Restriction of 10 lbs Shoulder Precautions Sling Other Precautions NWB L UE; new orders for LUE sling Weight Bearing Status Weight Bearing Status Weight Bear as Tolerated Allowed Weight Bearing Amount (enter % LEs; NWB LUE due to clavicle or #) (%) fx and scapular fx M3 OT- IP Subjective and Pain Start: 12/21/17 15:31 Freq: Status: Active Protocol: Document 12/24/17 10:35 ADH (Rec: 12/24/17 12:57 ADH [id number]) OT- Subjective Occupational Therapy Visit Type Type Treatment Note Visit Start Time 10:06 Visit Stop Time 10:35 Total Visit Minutes 29 OT Pain Assessment Pain When Pain Assessed At Rest Pain Present Pain Present Denied Pain M4 OT- IP ADL's Start: 12/21/17 15:31 Freq: Status: Active Protocol: Document 12/24/17 10:35 ADH (Rec: 12/24/17 12:57 ADH [id number]) OT ADL-Grooming General Evaluation Grooming Ability Moderate Assistance OT ADL-Dressing General Eval Upper Body Dressing Ability Maximum Assistance Lower Body Dressing Ability Minimal Assistance Areas Needing Assistance Retrieving/Set-up of Clothing Pull-Over Shirt Comments OT Dressing Comments Pt able to sit/stand multiple times througout dressing task, improving to SBA with verbal hands for hand positioning. Pt needing A to thread feet through brief/pants d/t difficulty bending over 2' pain in ribs. Pt needing max A to manage NWB LUE during dressing task and total A to don/doff sling. M6 OT- IP Functional Cognition Start: 12/21/17 15:31 Freq: Status: Active Protocol: Document 12/24/17 10:35 ADH (Rec: 12/24/17 12:57 ADH [id number]) Cognitive Factors Limiting Selfcare Function Cognitive Ability Level of Alertness Alert Confusional State Patient Orientation Name Attention Span Ability Capable of Focused Attention Ability to Follow Commands Able to Follow One Step Commands Memory Description Immediate Intact Short Term Impaired Assistant Scientist Impaired Safety Awareness Decreased Recall of Precautions Decreased Ability to Apply Precautions Underestimates Need for Assistance Problem Solving Ability Needs Assist to Identify Solutions M7 OT- IP Mobility and Balance Start: 12/21/17 15:31 Freq: Status: Active Protocol: Document 12/24/17 10:35 ADH (Rec: 12/24/17 12:57 ADH [id number]) OT-Transfer Assessment Sit to and From Stand Sit to and from Stand Standby Assistance Technique Transfer Destination Chair Devices Transfer Assistive Devices Gait Belt Small Based Quad Cane M9 OT- IP Assessment and Plan Start: 12/21/17 15:31 Freq: Status: Active Protocol: Document 12/24/17 10:35 ADH (Rec: 12/24/17 12:57 ADH [id number]) OT Summary Assessment and Plan Summary Progress Towards Goals Safe For Discharge Goals Met Assessment Summary Pt reached max functional ability here and is safe to d/ c to SNF at this time, with family support. Family received education re: dressing, toileting, safety awareness, etc. Discharge Recommendations OT Discharge Recommendations SNF Rehab
== END 2017-12-24 11:28 | DRG 183 ==
LOC: ED 12-16 00:43 → AC 12-16 01:36
PROVIDERS: Internal Medicine; Nurse Practitioner Acute Care; Admitting Provider Surgery; Emergency Provider Emergency Medicine; Visit Provider Surgery
DX: S22.20XA Unspecified fracture of sternum, initial encounter for closed fracture (principal); S27.1XXA Traumatic hemothorax, initial encounter; G93.41 Metabolic encephalopathy; S22.42XA Multiple fractures of ribs, left side, initial encounter for closed fracture; S22.088A Other fracture of T11-T12 vertebra, initial encounter for closed fracture; S42.018A Nondisplaced fracture of sternal end of left clavicle, initial encounter for closed fracture; S42.035A Nondisplaced fracture of lateral end of left clavicle, initial encounter for closed fracture; S42.102A Fracture of unspecified part of scapula, left shoulder, initial encounter for closed fracture; W17.89XA Other fall from one level to another, initial encounter; Y92.008 Other place in unspecified non-institutional (private) residence as the place of occurrence of the external cause; I10 Essential (primary) hypertension; Z87.891 Personal history of nicotine dependence; F03.90 Unspecified dementia, unspecified severity, without behavioral disturbance, psychotic disturbance, mood disturbance, and anxiety
CPT/HCPCS: 36415; 36592; 70450; 71045; 71260; 72125; 73030; 74177; 80048; 80051; 80053; 81001; 85025; 85610; 85730; 87077; 87086; 87186; 93005; 93041; 94760; 97116; 97163; 97166; 97530; 97535; 99285; J1170; J1650; J1940; J3480; Q9967